=== PATIENT | female | born 1970 | race Caucasian/White ===

== ENCOUNTER 2019-12-21 11:01 | Outpatient (CLI) | payer BC, SELFPAY ==
--- NOTE | 2019-12-21 | ECG_ITS ---
Measurements Intervals [place] Rate: 95 P: 76 [place]: 147 QRS: 0 QRSD: 88 T: 72 QT: 355 QTc: 447 Interpretive Statements SINUS RHYTHM INCOMPLETE RIGHT BUNDLE BRANCH BLOCK DELAYED PRECORDIAL R/S TRANSITION BORDERLINE ECG Electronically Signed On 12-21-2019 14:47:20 CDT by Michael Pack D.O.
[2019-12-21 11:58] LABS: Blood Urea Nitrogen 13 mg/dL (7-17); Calcium 8.9 mg/dL (8.4-10.2); Carbon Dioxide 29 mmol/L (22-30); Chloride 104 mmol/L (98-107); Estimated Glomerular Filt Rate > 60; Glucose 124 mg/dL (65-105); Potassium 4.5 mmol/L (3.4-5.0); Sodium 139 mmol/L (137-145)
== END 2019-12-21 11:02 | disposition home or self-care (01) ==
PROVIDERS: PCP Orthopaedic Surgery; Visit Provider Orthopaedic Surgery
DX: M65.311 Trigger thumb, right thumb (principal)
CPT/HCPCS: 36415; 80048; 93005

== ENCOUNTER 2020-02-02 08:11 | Emergency (ER) | payer BC, SELFPAY ==
--- NOTE | ~2020-02-02 | XR_ITS ---
EXAMINATION: XR wrist RT min 3V DATE: 02/02/2020 08:35 INDICATION: Right wrist pain. Injury. TECHNIQUE: 4 views of right wrist were obtained. COMPARISON: None. FINDINGS: There is a comminuted fracture of distal radius with involvement of the distal articular chanel rface and distal radioulnar joint. The main distal fracture fragment demonstrates impaction and 2 mm posterior displacement. There is 9 degrees palmar tilt of the distal articular surface. Ulnar styloid is intact. Joint spaces are normal. IMPRESSION: 1. Comminuted fracture of distal radius. Reviewed, dictated and finalized at location A.
[2020-02-02 08:21] VITALS: BP 141/92; PULSE 115; RESP 19; TEMP 36.5; O2SAT 99
--- NOTE | 2020-02-02 08:27 | ED.UPPEXIN ---
HPI - Extremity Injury (Upper) General Chief Complaint: Extremity Injury, Upper Stated Complaint: Right Wrist Injury Time Seen by Provider: 02/02/20 08:13 Source: patient Mode of arrival: ambulatory Limitations: no limitations History of Present Illness HPI narrative: This patient is a 49 year old female who presents for evaluation of right wrist pain s/p injury. LAst night around 930 pm patient reports she hit a wall with her right wrist out of anger. She reports she has had severe pain since last night but she did not want to come to ER at that time. She has been taking ibuprofen with out relief , and she has been applying ice packs. MD complaint: injury to: right and wrist Related Data Home Medications Medication Instructions Recorded Confirmed cinnamon bark 500 mg capsule 500 mg PO DAILY 08/02/19 02/02/20 colesevelam 625 mg tablet 3,750 mg PO DAILY 08/02/19 12/05/19 duloxetine 60 mg capsule,delayed 60 mg PO DAILY 08/02/19 02/02/20 release milk thistle 150 mg capsule 150 mg PO DAILY cap 08/02/19 02/02/20 pantoprazole 40 mg tablet,delayed 40 mg PO QAM 08/02/19 02/02/20 release solifenacin 5 mg tablet 5 mg PO DAILY 08/02/19 02/02/20 thyroid (pork) 180 mg tablet 180 mg PO DAILY 08/02/19 02/02/20 zinc acetate 50 mg (zinc) capsule 50 mg PO DAILY 08/02/19 02/02/20 pen needle, diabetic 31 gauge x #1,200 each 08/12/19 12/05/19/16 vitamins A and D3 in cod liver oil 1 cap PO DAILY cap 08/12/19 12/05/19 1,250 unit-135 unit capsule bupropion HCl 150 mg 24 hr tablet, 300 mg PO .COMPLEX tablet 12/05/19 02/02/20 extended release insulin glargine 100 unit/mL (3 60 unit SUB-Q QPM ml 12/05/19 02/02/20 mL) subcutaneous pen Allergies Allergy/AdvReac Type Severity Reaction Status Date / Time Quinolones Allergy Mild RASH Verified 02/02/20 08:30 amoxicillin Allergy Unknown Diarrhea Verified 02/02/20 08:30 ciprofloxacin Allergy Unknown Unknown Verified 02/02/20 08:30 clavulanic acid Allergy Unknown Diarrhea Verified 02/02/20 08:30 gatifloxacin Allergy Unknown Diarrhea Verified 02/02/20 08:30 Review of Systems Review of Systems: All systems reviewed & are unremarkable except as noted in HPI and below PMFSH Past Medical History Medical History Arthritis Back pain Cholecystectomy planned Depression Liver disease Ovarian cyst Thyroid disease Ulcer Surgical History Surgical History H/O spinal fusion H/O: hysterectomy Hx of tonsillectomy Social History Social History Smoking status: Never smoker Alcohol intake: never Gender identity (if verbalized by the patient): Female Exam Const: General: alert Orientation/consciousness: patient oriented x3 Other: patient is crying Eyes: EOM: EOMs intact bilaterally Resp: Effort & Inspection: normal respiratory effort Cardio: Other: strong bilateral radial pulse Skin: Other: scaly , flaky circular patches to legs, Neuro: General: patient oriented x3 and moves all extremities Extrem: Other: right wrist swelling with tenderness, pain with touching and movement, able to extend fingers and move at elbow with out difficulty. Psych: Mental Status: mental status grossly normal Affect: normal affect Course Consultations Consultation #1: I spoke with Dr. Acharya over the phone about fracture. He states patient can be placed in splint and follow up Tuesday afternoon. Date: 02/02/20 Time: 09:32 Vital Signs Vital signs: Vital Signs Temperature 97.7 F 02/02/20 08:21 Pulse Rate 115 H 02/02/20 08:21 Respiratory Rate 19 02/02/20 08:21 Blood Pressure 141/92 H 02/02/20 08:21 Pulse Oximetry 99 02/02/20 08:21 Temperature 97.7 F 02/02/20 08:21 Pulse Rate 97 02/02/20 09:00 Respiratory Rate 18 02/02/20 09:00 Blood Pressure 135/87 02/02/20 09:00 Pulse Oximetr
[2020-02-02] MEDS: oxyCODONE/ACETAMINOPHEN 5-325 MG TABLET 1 TABLET PO (08:37)
[2020-02-02] MEDS: ONDANSETRON HCL ODT 4 MG TABLET PO (08:37)
[2020-02-02 09:00] VITALS: BP 135/87; PULSE 97; RESP 18; O2SAT 99
== END 2020-02-02 10:57 | disposition home or self-care (01) ==
PROVIDERS: Emergency Provider General Practice; PCP Nurse Practitioner Family
DX: S52.591A Other fractures of lower end of right radius, initial encounter for closed fracture (principal); M19.90 Unspecified osteoarthritis, unspecified site; K76.9 Liver disease, unspecified; E07.9 Disorder of thyroid, unspecified; F32.9 Major depressive disorder, single episode, unspecified; Z98.1 Arthrodesis status; W22.09XA Striking against other stationary object, initial encounter
CPT/HCPCS: 29125; 73110; 99284; A9270

== ENCOUNTER 2020-02-03 20:22 | Emergency (ER) | payer BC, SELFPAY ==
[2020-02-03 20:24] VITALS: BP 146/66; PULSE 100; RESP 16; TEMP 36.6; O2SAT 100
--- NOTE | 2020-02-03 21:06 | ED.UPPEXIN ---
HPI - Extremity Injury (Upper) General Chief Complaint: Extremity Injury, Upper Stated Complaint: pain to right arm Time Seen by Provider: 02/03/20 20:29 Source: patient Mode of arrival: ambulatory Limitations: no limitations History of Present Illness HPI narrative: This is a 49 year old female that presents to the ER for increasing pain in her forearm. Reports she was seen here yesterday for this. Sustained a wrist fracture 2 days ago. Reports she was concerned she may have compartment syndrome as she was reading up on it. Reports some tingling in her fingers and increasing pressure in the area of the fracture. Denies numbness. Related Data Home Medications Medication Instructions Recorded Confirmed cinnamon bark 500 mg capsule 500 mg PO DAILY 08/02/19 02/02/20 colesevelam 625 mg tablet 3,750 mg PO DAILY 08/02/19 12/05/19 duloxetine 60 mg capsule,delayed 60 mg PO DAILY 08/02/19 02/02/20 release milk thistle 150 mg capsule 150 mg PO DAILY cap 08/02/19 02/02/20 pantoprazole 40 mg tablet,delayed 40 mg PO QAM 08/02/19 02/02/20 release solifenacin 5 mg tablet 5 mg PO DAILY 08/02/19 02/02/20 thyroid (pork) 180 mg tablet 180 mg PO DAILY 08/02/19 02/02/20 zinc acetate 50 mg (zinc) capsule 50 mg PO DAILY 08/02/19 02/02/20 pen needle, diabetic 31 gauge x #1,200 each 08/12/19 12/05/19/16 vitamins A and D3 in cod liver oil 1 cap PO DAILY cap 08/12/19 12/05/19 1,250 unit-135 unit capsule bupropion HCl 150 mg 24 hr tablet, 300 mg PO .COMPLEX tablet 12/05/19 02/02/20 extended release insulin glargine 100 unit/mL (3 60 unit SUB-Q QPM ml 12/05/19 02/02/20 mL) subcutaneous pen Allergies Allergy/AdvReac Type Severity Reaction Status Date / Time Quinolones Allergy Mild RASH Verified 02/02/20 08:30 amoxicillin Allergy Unknown Diarrhea Verified 02/02/20 08:30 ciprofloxacin Allergy Unknown Unknown Verified 02/02/20 08:30 clavulanic acid Allergy Unknown Diarrhea Verified 02/02/20 08:30 gatifloxacin Allergy Unknown Diarrhea Verified 02/02/20 08:30 Review of Systems Review of Systems: Narrative: CONSTITUTIONAL: Denies fever SKIN: Denies rash MUSCULOSKELETAL: Reports joint pain, and myalgia. NEUROLOGIC: Denies numbness All systems reviewed & are unremarkable except as noted in HPI and below PMFSH Social History Social History Smoking status: Never smoker Alcohol intake: never Gender identity (if verbalized by the patient): Female Exam Narrative: Exam Narrative: GENERAL: Well-appearing, well-nourished, and in no acute distress. HEAD: Normocephalic, atraumatic. EYES: EOMI. EXTREMITIES: Splint removed on the right forearm. No erythema of the forearm. Compartments are soft. Normal radial pulses. Normal capillary refill SKIN: Warm, dry, no rash. NEURO: No focal deficits. Alert and oriented x3. PSYCH: Normal mood and affect Course Vital Signs Vital signs: Vital Signs Temperature 97.9 F 02/03/20 20:24 Pulse Rate 100 02/03/20 20:24 Respiratory Rate 16 02/03/20 20:24 Blood Pressure 146/66 H 02/03/20 20:24 Pulse Oximetry 100 02/03/20 20:24 Temperature 97.9 F 02/03/20 20:24 Pulse Rate 100 02/03/20 20:24 Respiratory Rate 16 02/03/20 20:24 Blood Pressure 146/66 H 02/03/20 20:24 Pulse Oximetry 100 02/03/20 20:24 MDM - Extremity Injury (Upper) MDM Narrative Medical decision making narrative: Patient presents the emergency department for increasing pain in her wrist. Was seen here yesterday and diagnosed with distal radius fracture. Patient returned today as she was worried she had compartment syndrome. I do not believe pain is out of proportion. Her compartments are soft. She has a good radial pulse. Normal capillary refill. No erythema or concerning edema of the forearm. Splint was replaced. Patient was instructed to follow-up with orthopedics as planned. She was given warnings to return to the ER Critical Care Jean Marie
[2020-02-03 21:47] VITALS: BP 135/77; PULSE 95; RESP 18; O2SAT 98
== END 2020-02-03 21:49 | disposition home or self-care (01) ==
PROVIDERS: Emergency Provider Emergency Medicine; PCP Nurse Practitioner Family
DX: S52.501D Unspecified fracture of the lower end of right radius, subsequent encounter for closed fracture with routine healing (principal); Z79.4 Long term (current) use of insulin; X58.XXXD Exposure to other specified factors, subsequent encounter
CPT/HCPCS: 99282

== ENCOUNTER 2020-07-07 08:30 | Outpatient (CLI) | payer BC, SELFPAY ==
--- NOTE | ~2020-07-07 | XR_ITS ---
EXAMINATION: XR barium swallow modified EXAM DATE: 07/07/2020 09:07 INDICATION: Dysphagia. TECHNIQUE: Modified barium esophagram was performed by myself to administered fluoroscopy, in conjun ction with speech pathologist who administered barium in varying consistencies as per speech patholog ist documentation. This was recorded on tape. The DAP for this procedure was 1.4 Gycm2. FINDINGS: Cervical fusion hardware C4-6. Oral stage: Adequate function. Pharyngeal phase: Adequate function. Laryngeal penetration: None. Aspiration: None. Laryngeal sensitivity: Present. IMPRESSION: Normal modified esophagram exam. Please refer to speech pathologist findings and specifi c feeding recommendations. Reviewed, dictated and finalized at location A. MBLER GOLF [employer] HEAD IMPRESSION: Normal modified esophagram exam. Please refer to speech pathologis t findings and specific feeding recommendations.
--- NOTE | 2020-07-07 15:13 | STOPEVAL ---
Modified Barium Swallow Evaluation: Thank you for referring Rachana Estrella to [facility] Attending Provider: Silvestre Stallworth, VICE PRESIDENT RESEARCH *ST Outpatient Evaluation Start: 07/07/20 09:54 Freq: Status: Active Protocol: Document 07/07/20 08:45 BECHERERT (Rec: 07/07/20 10:00 BECHERERT [email or web address]) Therapy Assessment Status Assessment Status Assessment Status Evaluation Outpatient Past Medical History Past Medical History No Past Medical/Surgical History Patient/Family Denies Significant Past Medical/ Surgical History Prior Level of Function Prior Swallow Level Prior Intake Method Oral Prior Diet Regular (Level 7 Diet) Prior Liquid Consistency Thin (Level 0 Diet) Pain Assessment Timing of Pain Assessment Timing of Pain Assessment Assessment Self Report Self Report Pain Level 0 Pain Score Pain Score 0: Self Report Modified Barium Swallow Evaluation Recent Swallowing History Reports Dysphagia Yes: small pieces get stuck Onset of Dysphagia several years ago (before cervical fusion) Other Factors Impacting Dysphagia Head/Neck Surgery History of Pneumonia No Reported Difficult Consistencies Solids Intake Method Prior to Swallow Oral Evaluation Diet Prior to Swallow Evaluation Regular, Level 7 Liquid Consistency Prior to Swallow Thin (0) Evaluation Consistency Thin Uncontrolled 2 Method of Presentation Straw Oral Preparatory Symptoms None Oral Phase Symptoms None Pharyngeal Phase Symptoms None Severity of Vallecular Residue None - 0% No Residue Severity of Pyriform Sinus Residue None - 0% No Residue 8 Point Laryngeal Penetration-Aspiration Material Does Not Enter Airway Scale Cervical/Esophageal Symptoms None Thin Uncontrolled 1 Method of Presentation Cup Oral Preparatory Symptoms None Oral Phase Symptoms None Pharyngeal Phase Symptoms None Severity of Vallecular Residue None - 0% No Residue Severity of Pyriform Sinus Residue None - 0% No Residue 8 Point Laryngeal Penetration-Aspiration Material Does Not Enter Airway Scale Cervical/Esophageal Symptoms None Solid Consistency Other Amount cracker and grapes the pt brought to the test; she c/o that the skin of the grapes gets caught in her throat. Method of Presentation Spoon Oral Preparatory Symptoms None Oral Phase Symptoms None Pharyngeal Phase Symptoms None Severity of Vallecular Residue None - 0% No Residue Severity of Pyriform Sinus Residue None - 0%
== END 2020-07-07 08:31 | disposition home or self-care (01) ==
PROVIDERS: PCP Nurse Practitioner Family; Visit Provider Nurse Practitioner Family
DX: R13.10 Dysphagia, unspecified (principal)
CPT/HCPCS: 92611

== ENCOUNTER 2020-09-16 15:27 | Outpatient (CLI) | payer BC, SELFPAY ==
[2020-09-16 16:02] LABS: Hematocrit 44.3 % (37.0-47.0); Mean Corpuscular HGB Conc 31.6 g/dl (32-36); Mean Corpuscular Hemoglobin 25.7 pg (26-34); Mean Corpuscular Volume 81.3 fl (80-100); Mean Platelet Volume 9.8 fl (7.4-10.4); Platelet Count Result 266 k/mm3 (150-375); Red Blood Count 5.45 M/mm3 (4.2-5.4); Red Cell Distribution Width 19.6 % (11.5-14.5); White Blood Count 9.4 K/mm3 (4.5-10.0)
[2020-09-16 16:26] LABS: Transferrin 230 mg/dL (206-381)
[2020-09-16 16:48] LABS: Iron 48 ug/dL (37-170)
== END 2020-09-16 15:28 | disposition home or self-care (01) ==
PROVIDERS: PCP Nurse Practitioner Family
DX: E61.1 Iron deficiency (principal)
CPT/HCPCS: 36415; 82728; 83540; 84466; 85027

== ENCOUNTER 2020-10-07 15:45 | Outpatient (CLI) | payer BC, SELFPAY ==
[2020-10-07 16:43] LABS: Alanine Aminotransferase 22 U/L (4-35); Albumin Level 4.1 g/dL (3.5-5.1); Alkaline Phosphatase 101 U/L (38-126); Anion Gap 2 mmol/L (8-16); Aspartate Amino Transferase 25 U/L (14-36); Bilirubin,Total 0.3 mg/dL (0.2-1.3); Blood Urea Nitrogen 10 mg/dL (7-17); Calcium 8.9 mg/dL (8.4-10.2); Carbon Dioxide 35 mmol/L (22-30); Chloride 106 mmol/L (98-107); Estimated Glomerular Filt Rate > 60; Glucose 106 mg/dL (65-105); Sodium 143 mmol/L (137-145)
== END 2020-10-07 15:46 | disposition home or self-care (01) ==
LOC: ANHLAB 15:51
PROVIDERS: PCP Nurse Practitioner Family
DX: K75.81 Nonalcoholic steatohepatitis (NASH) (principal)
CPT/HCPCS: 36415; 80053

== ENCOUNTER 2020-11-07 12:23 | Outpatient (CLI) | payer BC, SELFPAY ==
--- NOTE | ~2020-11-07 | XR_ITS ---
XR shoulder RT min 2V DATE: 11/07/2020 12:47 INDICATION: Right shoulder pain for 2 months TECHNIQUE: 4 views COMPARISON: None FINDINGS: Status post anterior cervical spine surgical fusion. Osteopenia. Normal alignment at the acromioclavicular and glenohumeral joints. No fracture or dislocation, perios teal reaction or bone destruction or abnormal soft tissue calcification of the right shoulder. Mild dextroscoliosis of the thoracic spine. IMPRESSION: Osteopenia Status post anterior cervical spine surgical fusion Reviewed, dictated and finalized at location B.
== END 2020-11-07 12:24 | disposition home or self-care (01) ==
LOC: ANHIMG 12:25
PROVIDERS: PCP Nurse Practitioner Family; Visit Provider Nurse Practitioner Family
DX: M85.811 Other specified disorders of bone density and structure, right shoulder (principal); Z98.1 Arthrodesis status
CPT/HCPCS: 73030

== ENCOUNTER 2021-01-15 10:37 | Outpatient (CLI) | payer BC, SELFPAY ==
--- NOTE | ~2021-01-15 | XR_ITS ---
EXAMINATION: XR lg joint inject/asp w image DATE: 01/15/2021 11:52 INDICATION: Right frozen shoulder. TECHNIQUE: A time-out was performed to verify the patient's name, date of , and procedure to b e performed. The procedure including the risks, benefits, and alternatives was discussed with the pat ient. Risks discussed included bleeding and infection. The patient understood the risks and agreed to proceed. The skin overlying the rotator cuff interval of the right glenohumeral joint was prepped a nd draped in usual sterile fashion. Anesthetic was administered with 1% lidocaine subcutaneously. A 22 G needle was advanced under fluoroscopic guidance into the joint. Injection of 1 mL of Omnipaque 240 confirmed intra-articular position of the needle. Subsequently, injectate consisting of 5 mL of a 4:1 mixture of 1% lidocaine: 80 mg/mL Depo-Medrol for a total dose of 80 mg Depo-Medrol was instil led. Washout of contrast was seen confirming intra-articular administration. The needle was removed a nd the entry site was cleaned and dressed. There were no immediate complications. Fluoroscopy exposu re time was 0.2 minutes. The total number of images was 2. FINDINGS: Real-time fluoroscopy demonstrates the needle in the right glenohumeral joint. Patient's pa in prior to procedure:09/27. Patient's pain following the procedure: 07/30. IMPRESSION: 1. Right glenohumeral joint injection of local anesthetic and steroid with decrease in the patient's presenting pain. Reviewed, dictated and finalized at location A. IMPRESSION: 1. Right glenohumeral joint injection of local anesthetic and steroid with decr ease in the patient's presenting pain.
== END 2021-01-15 10:38 | disposition home or self-care (01) ==
LOC: ANHIMG 10:39
PROVIDERS: PCP Nurse Practitioner Family; Visit Provider Physician Assistant Surgical
DX: M25.511 Pain in right shoulder (principal)
CPT/HCPCS: 20610; 77002; J1040; Q9966

== ENCOUNTER 2021-01-15 10:50 | Outpatient (CLI) | payer BC, SELFPAY ==
[2021-01-15 12:08] LABS: Basophils Percent Auto 0.4 % (0.2-1.2); Eosinophils Absolute Auto 0.1 K/mm3 (0-0.3); Eosinophils Percent Auto 1.3 % (0-4.4); Hematocrit 47.1 % (37.0-47.0); Hemoglobin 15.2 g/dL (12.0-15.0); Immature Granulocyte Absolute 0.02 K/mm3 (0.00-0.031); Immature Granulocyte Percent A 0.2 % (0-0.5); Lymphocytes Absolute Auto 2.47 K/mm3 (0.9-3.2); Lymphocytes Percent Auto 30.1 % (18.3-44.2); Mean Corpuscular HGB Conc 32.3 g/dl (32-36); Mean Corpuscular Hemoglobin 27.9 pg (26-34); Mean Corpuscular Volume 86.6 fl (80-100); Mean Platelet Volume 9.5 fl (7.4-10.4); Monocytes Absolute Auto 0.7 K/mm3 (0.1-0.6); Monocytes Percent Auto 8.9 % (2.6-8.5); Neutrophils Absolute Auto 4.8 K/mm3 (1.3-6.7); Neutrophils Percent Auto 59.1 % (45.5-73.1); Platelet Count Result 305 k/mm3 (150-375); Red Blood Count 5.44 M/mm3 (4.2-5.4); Red Cell Distribution Width 12.6 % (11.5-14.5); White Blood Count 8.2 K/mm3 (4.5-10.0)
[2021-01-15 12:18] LABS: Alanine Aminotransferase 20 U/L (4-35); Albumin Level 4.3 g/dL (3.5-5.1); Alkaline Phosphatase 108 U/L (38-126); Anion Gap 11 mmol/L (8-16); Aspartate Amino Transferase 22 U/L (14-36); Bilirubin,Total 0.5 mg/dL (0.2-1.3); Blood Urea Nitrogen 9 mg/dL (7-17); Calcium 9.7 mg/dL (8.4-10.2); Carbon Dioxide 27 mmol/L (22-30); Chloride 105 mmol/L (98-107); Estimated Glomerular Filt Rate > 60; Glucose 86 mg/dL (65-110); Potassium 4.2 mmol/L (3.4-5.0); Sodium 143 mmol/L (137-145)
[2021-01-15 12:43] LABS: Iron 46 ug/dL (37-170)
[2021-01-15 12:50] LABS: Total Triiodothyronine (T3) 1.47 NG/ML (0.97-1.69)
[2021-01-15 12:53] LABS: Percent Iron Saturation 15 % (20-50)
[2021-01-15 13:04] LABS: Free T4 Free Thyroxine 0.61 ng/mL (0.78-2.19)
[2021-01-15 16:52] LABS: Creatinine Urine 204.2 mg/dL
[2021-01-15 16:57] LABS: Microalbumin Urine Random 16.4 mg/L (0-16.7)
[2021-01-21 06:18] LABS: Fructosamine 195 umol/L (205-285)
== END 2021-01-15 10:51 | disposition home or self-care (01) ==
PROVIDERS: PCP Nurse Practitioner Family; Visit Provider Internal Medicine Endocrinology, Diabetes & Metabolism
DX: D64.9 Anemia, unspecified (principal)
CPT/HCPCS: 36415; 80053; 82043; 82728; 82985; 83540; 83550; 84439; 84443; 84480; 85025

== ENCOUNTER 2021-02-18 13:46 | Outpatient (CLI) | payer BC, SELFPAY ==
--- NOTE | ~2021-02-18 | XR_ITS ---
EXAMINATION: XR lumbar spine 2-3V DATE: 02/18/2021 14:20 INDICATION: Pain in lower limb, bilateral. TECHNIQUE: 3 views of lumbar spine were obtained. COMPARISON: None. FINDINGS: There is 6 degrees levocurvature of lumbar spine. Vertebral body heights are normal. There is mildly decreased disc height at L2-L3. There are endplate osteophytes at most levels. There is sev ere facet joint osteoarthritis at L5-S1. Surgical clips in the right upper quadrant are likely from c holecystectomy. IMPRESSION: 1. Mild lumbar spondylosis. Reviewed, dictated and finalized at location A. IMPRESSION: 1. Mild lumbar spondylosis.
== END 2021-02-18 13:47 | disposition home or self-care (01) ==
PROVIDERS: PCP Nurse Practitioner Family; Visit Provider Nurse Practitioner Family
DX: M79.604 Pain in right leg (principal); M79.605 Pain in left leg; M47.816 Spondylosis without myelopathy or radiculopathy, lumbar region
CPT/HCPCS: 72100

== ENCOUNTER 2021-05-05 14:09 | Outpatient (CLI) | payer BC, SELFPAY ==
[2021-05-05 14:49] LABS: Basophils Percent Auto 0.2 % (0.2-1.2); Eosinophils Absolute Auto 0.1 K/mm3 (0-0.3); Hemoglobin 14.5 g/dL (12.0-15.0); Immature Granulocyte Absolute 0.02 K/mm3 (0.00-0.031); Immature Granulocyte Percent A 0.2 % (0-0.5); Mean Corpuscular Hemoglobin 28.8 pg (26-34); Mean Corpuscular Volume 87.5 fl (80-100); Mean Platelet Volume 9.5 fl (7.4-10.4); Monocytes Absolute Auto 0.6 K/mm3 (0.1-0.6); Monocytes Percent Auto 6.9 % (2.6-8.5); Neutrophils Absolute Auto 5.3 K/mm3 (1.3-6.7); Neutrophils Percent Auto 60.7 % (45.5-73.1); Platelet Count Result 287 k/mm3 (150-375); Red Blood Count 5.03 M/mm3 (4.2-5.4); Red Cell Distribution Width 12.6 % (11.5-14.5); White Blood Count 8.7 K/mm3 (4.5-10.0)
[2021-05-05 15:04] LABS: Cholesterol 182 mg/dL (0-200); HDL Direct 50 mg/dL; Triglycerides 113 mg/dL (<150)
[2021-05-05 15:05] LABS: Alanine Aminotransferase 22 U/L (4-35); Albumin Level 4.6 g/dL (3.5-5.1); Alkaline Phosphatase 105 U/L (38-126); Anion Gap 7 mmol/L (8-16); Aspartate Amino Transferase 25 U/L (14-36); Bilirubin,Total 0.5 mg/dL (0.2-1.3); Blood Urea Nitrogen 11 mg/dL (7-17); Calcium 9.4 mg/dL (8.4-10.2); Carbon Dioxide 31 mmol/L (22-30); Chloride 100 mmol/L (98-107); Estimated Glomerular Filt Rate > 60; Glucose 92 mg/dL (65-110); Potassium 3.7 mmol/L (3.4-5.0); Sodium 138 mmol/L (137-145)
[2021-05-05 15:15] LABS: LDL Cholesterol Direct 106 mg/dL
[2021-05-05 15:30] LABS: Free T4 Free Thyroxine 0.82 ng/mL (0.78-2.19)
[2021-05-05 15:33] LABS: Hepatitis B Surface Antigen Negative (Negative)
[2021-05-05 15:34] LABS: Thyroid Stimulating Hormone 0.834 uIU/mL (0.465-4.680); Total Triiodothyronine (T3) 2.17 NG/ML (0.97-1.69)
[2021-05-05 15:51] LABS: Hepatitis B Surface Anti Res Negative
[2021-05-08 05:12] LABS: Hepatitis B Core Ab Total Nonreactive (Nonreactive)
[2021-05-13 11:45] LABS: Quantiferon TB Plus, 1T Positive
[2021-05-13 11:46] LABS: NIL 0.02
[2021-05-13 11:49] LABS: TB1-NIL 0.47
[2021-05-13 11:50] LABS: TB2-NIL 0.41
== END 2021-05-05 14:10 | disposition home or self-care (01) ==
PROVIDERS: PCP Nurse Practitioner Family; Visit Provider Nurse Practitioner Family
DX: E03.9 Hypothyroidism, unspecified (principal); E11.65 Type 2 diabetes mellitus with hyperglycemia; E78.5 Hyperlipidemia, unspecified; Z79.4 Long term (current) use of insulin; K50.019 Crohn's disease of small intestine with unspecified complications
CPT/HCPCS: 36415; 80053; 80061; 82306; 82607; 84439; 84443; 84480; 85025; 86480; 86704; 86706; 87340

== ENCOUNTER 2021-05-18 15:34 | Outpatient (CLI) | payer BC, SELFPAY ==
--- NOTE | ~2021-05-18 | XR_ITS ---
EXAMINATION: XR chest 2V 05/18/2021 15:53 INDICATION: Positive TB test PROCEDURE: 2 view chest COMPARISON: 03/05/2019 FINDINGS: The lungs are clear. The cardiomediastinal silhouette is within normal limits. There are no pleural effusions. There is no pneumothorax suspected. IMPRESSION: 1: NO ACUTE CARDIOPULMONARY DISEASE. Reviewed, dictated and finalized at location B. H SETTER
== END 2021-05-18 15:35 | disposition home or self-care (01) ==
LOC: ANHIMG 15:39
PROVIDERS: PCP Nurse Practitioner Family
DX: R76.11 Nonspecific reaction to tuberculin skin test without active tuberculosis (principal)
CPT/HCPCS: 71046

== ENCOUNTER 2021-07-14 15:31 | Outpatient (CLI) | payer BC, SELFPAY ==
--- NOTE | ~2021-07-14 | XR_ITS ---
XR sternum min 2V DATE: 07/14/2021 16:06 INDICATION: Chest pain, sternal pain, clavicle pain TECHNIQUE: Lateral and oblique views COMPARISON: None FINDINGS: There is a smooth indentation of the anterior cortex of the proximal body of the sternum, n ot readily evident on prior lateral chest radiographs of 03/27/2012 or 05/18/2021. This may be an inte rval fracture. Consider CT correlation. IMPRESSION: Possible depressed but otherwise nondisplaced fracture of the proximal anterior body of t he sternum, uncertain age Reviewed, dictated and finalized at location A. OYMENT COUNSELOR IMPRESSION: Possible depressed but otherwise nondisplaced fracture of the proxi mal anterior body of the sternum, uncertain age
--- NOTE | ~2021-07-14 | XR_ITS ---
XR clavicle BI DATE: 07/14/2021 16:06 INDICATION: Chest pain, clavicle pain. TECHNIQUE: AP and angled AP views of both clavicles COMPARISON: 11/07/2020 right shoulder FINDINGS: Status post anterior cervical spine surgical fusion. Osteopenia. No fracture or dislocation, periosteal reaction or bone destruction of either clavicle is detected. IMPRESSION: Osteopenia Status post anterior cervical spine fusion surgical fusion from C4-C7 No clavicle fracture or dislocation, periosteal reaction or bone destruction Reviewed, dictated and finalized at location A. ATIONAL ADMINISTRATOR
== END 2021-07-14 15:32 | disposition home or self-care (01) ==
PROVIDERS: PCP Nurse Practitioner Family; Visit Provider Nurse Practitioner Family
DX: R07.9 Chest pain, unspecified (principal); M85.88 Other specified disorders of bone density and structure, other site; Z98.1 Arthrodesis status
CPT/HCPCS: 71120; 73000

== ENCOUNTER 2021-08-16 15:44 | Emergency (ER) | payer BC, SELFPAY ==
[2021-08-16 15:48] VITALS: BP 192/117; PULSE 114; RESP 22; TEMP 36.6; O2SAT 97
--- NOTE | 2021-08-16 16:22 | ED.GENADULT ---
HPI - General Adult General Chief complaint: Psychiatric Symptoms Stated complaint: SI Time Seen by Provider: 08/16/21 15:54 Source: patient and RN notes reviewed Limitations: no limitations History of Present Illness HPI narrative: 51-year-old female presents the emergency department for evaluation of worsening suicidal ideation. Patient states she did have suicidal thoughts approximately 2 weeks ago when she put a handful of pills in her mouth but ultimately spit them out before swallowing. Patient states due to increased home stresses that she has become more depressed and suicidal. Patient presents emerged department complaining of suicidal ideation. Patient denies taking any pills today to hurt herself. Patient denies any alcohol consumption. Patient did tell her to walk guns and to change the safe combination because she did not feel safe. Related Data Home Medications Medication Instructions Recorded Confirmed cinnamon bark 500 mg capsule 500 mg PO DAILY 08/02/19 01/01/21 colesevelam 625 mg tablet 3,750 mg PO DAILY 08/02/19 01/01/21 duloxetine 60 mg capsule,delayed 60 mg PO DAILY 08/02/19 01/01/21 release milk thistle 150 mg capsule 150 mg PO DAILY cap 08/02/19 01/01/21 pantoprazole 40 mg tablet,delayed 40 mg PO QAM 08/02/19 01/01/21 release thyroid (pork) 180 mg tablet 180 mg PO DAILY 08/02/19 01/01/21 zinc acetate 50 mg (zinc) capsule 50 mg PO DAILY 08/02/19 01/01/21 pen needle, diabetic 31 gauge x #1,200 each 08/12/19 01/01/21/16 bupropion HCl 150 mg 24 hr tablet, 300 mg PO .COMPLEX tablet 12/05/19 01/01/21 extended release cholecalciferol (vitamin D3) 1,250 1,250 mcg PO WEEKLY cap 09/25/20 01/01/21 mcg (50,000 unit) capsule mirabegron 25 mg tablet,extended 25 mg PO DAILY 09/25/20 01/01/21 release 24 hr Allergies Allergy/AdvReac Type Severity Reaction Status Date / Time Quinolones Allergy Mild RASH Verified 08/16/21 16:12 ciprofloxacin Allergy Unknown Unknown Verified 08/16/21 16:12 amoxicillin AdvReac Unknown Diarrhea Verified 08/16/21 16:37 clavulanic acid AdvReac Unknown Diarrhea Verified 08/16/21 16:37 gatifloxacin AdvReac Unknown Diarrhea Verified 08/16/21 16:37 Review of Systems Review of Systems: CONSTITUTIONAL: Denies fever, chills, or sweats. EYES: Denies visual changes, redness, or discharge. ENT: Denies rhinorrhea, congestion, sore throat, or otalgia. CARDIOVASCULAR: Denies chest pain, palpitations, or edema. RESPIRATORY: Denies cough or dyspnea. GASTROINTESTINAL: Denies abdominal pain, nausea, vomiting, or diarrhea. GENITOURINARY: Denies dysuria or hematuria. SKIN: Denies rash or itching. MUSCULOSKELETAL: Denies back pain, joint pain, or myalgia. NEUROLOGIC: Denies headache, numbness, or weakness. PSYCHIATRIC: Worsening stress, depression and suicidal ideation All systems reviewed & are unremarkable except as noted in HPI and below PMFSH Past Medical History Medical History (Updated 08/16/21 @ 19:54 by Derik Mays MD) Arthritis Back pain Cholecystectomy planned Depression Liver disease Ovarian cyst Thyroid disease Ulcer Surgical History Surgical History H/O spinal fusion H/O: hysterectomy Hx of tonsillectomy Family History Family History Other Family history of mental disorder Family history of thyroid disease Social History Social History Smoking status: Never smoker Alcohol intake: never Substance use type: unknown Gender identity (if verbalized by the patient): Female Exam Narrative: APPEARANCE: Well appearing, no pain, no distress, well-nourished. HEAD: normocephalic, atraumatic. EYES: PERRLA/EOMI, conjunctivae clear. RESPIRATORY: Airway patent, respirations nonlabored. Clear to auscultation bilaterally, no rales, rhonchi, wheezing. CARDIOVASCULAR: Regul
[2021-08-16 16:36] LABS: Basophils Percent Auto 0.4 % (0.2-1.2); Eosinophils Absolute Auto 0.1 K/mm3 (0-0.3); Eosinophils Percent Auto 0.7 % (0-4.4); Hematocrit 46.6 % (37.0-47.0); Hemoglobin 15.6 g/dL (12.0-15.0); Immature Granulocyte Absolute 0.04 K/mm3 (0.00-0.031); Immature Granulocyte Percent A 0.4 % (0-0.5); Lymphocytes Absolute Auto 2.46 K/mm3 (0.9-3.2); Lymphocytes Percent Auto 22.6 % (18.3-44.2); Mean Corpuscular HGB Conc 33.5 g/dl (32-36); Mean Corpuscular Hemoglobin 28.8 pg (26-34); Mean Corpuscular Volume 86.1 fl (80-100); Mean Platelet Volume 9.6 fl (7.4-10.4); Monocytes Absolute Auto 0.9 K/mm3 (0.1-0.6); Monocytes Percent Auto 7.8 % (2.6-8.5); Neutrophils Absolute Auto 7.4 K/mm3 (1.3-6.7); Neutrophils Percent Auto 68.1 % (45.5-73.1); Platelet Count Result 306 k/mm3 (150-375); Red Blood Count 5.41 M/mm3 (4.2-5.4); Red Cell Distribution Width 12.6 % (11.5-14.5); White Blood Count 10.9 K/mm3 (4.5-10.0)
[2021-08-16] MEDS: ONDANSETRON HCL ODT 4 MG TABLET PO (16:43)
[2021-08-16] MEDS: IBUPROFEN 600 MG TABLET PO (16:43)
[2021-08-16 16:44] LABS: Acetaminophen < 10 ug/mL (10-30); Alanine Aminotransferase 25 U/L (4-35); Albumin Level 4.4 g/dL (3.5-5.1); Alkaline Phosphatase 122 U/L (38-126); Anion Gap 8 mmol/L (8-16); Aspartate Amino Transferase 33 U/L (14-36); Bilirubin,Total 0.7 mg/dL (0.2-1.3); Blood Urea Nitrogen 10 mg/dL (7-17); Calcium 9.3 mg/dL (8.4-10.2); Carbon Dioxide 24 mmol/L (22-30); Chloride 106 mmol/L (98-107); Estimated CRCL calculation 95 ml/min; Estimated Glomerular Filt Rate > 60; Ethanol < 10 mg/dL (<10); Glucose 151 mg/dL (65-110); Potassium 3.8 mmol/L (3.4-5.0); Salicylate < 1.0 mg/dL (2-20); Sodium 138 mmol/L (137-145)
[2021-08-16 17:00] LABS: Add Urine Microscopic? YES; Appearance Urine Clear (Clear); Bacteria Urine Trace /hpf; Bilirubin Urine Negative (Negative); Blood Urine Negative (Negative); Color Urine Yellow (Yellow); Glucose Urine UA Negative (Negative); Ketones Urine Trace mg/dL (Negative); Leukocyte Esterase Ur Trace LEU/UL (Negative); Mucus Urine Rare /lpf; Nitrate Urine Negative (Negative); Protein Urine Negative (Negative); Specific Grav Ur 1.009 (1.001-1.035); Squamous Epithelial Cell Urine Rare /hpf (Few); Urobilinogen Urine Negative mg/dL (<2.0); WBC Urine 0-3 /hpf
[2021-08-16 17:23] LABS: Amphetamine Screen Urine Negative (Negative); Barbiturate Screen Urine Negative (Negative); Benzodiazepines Screen Urine Negative (Negative); Cannabinoid Screen Urine Positive (Negative); Cocaine Screen Urine Negative (Negative); Methadone Screen Urine Negative (Negative); Opiate Screen Urine Negative (Negative); Phencyclidine Screen Urine Negative (Negative)
--- NOTE | 2021-08-16 17:24 | PC.NURSE ---
Patient given food tray. at the bedside.
[2021-08-16 18:24] LABS: SARS-CoV-2 RNA PCR Negative
--- NOTE | 2021-08-16 19:16 | PC.NURSE ---
1805 Crisis armorer technician at the bedside.
[2021-08-16 20:14] VITALS: BP 163/100; PULSE 84; RESP 16; O2SAT 98
== END 2021-08-16 20:17 | disposition home or self-care (01) ==
PROVIDERS: Emergency Provider Emergency Medicine; PCP Nurse Practitioner Family
DX: R45.851 Suicidal ideations (principal); Z20.822 Contact with and (suspected) exposure to COVID-19; K76.9 Liver disease, unspecified; E07.9 Disorder of thyroid, unspecified; M19.90 Unspecified osteoarthritis, unspecified site; F32.A Depression, unspecified; Z98.1 Arthrodesis status; Z79.4 Long term (current) use of insulin
CPT/HCPCS: 36415; 80053; 80307; 81001; 84443; 85025; 99284; A9270; C9803; U0003; U0005

== ENCOUNTER 2021-09-14 12:43 | Emergency (ER) | payer BC, SELFPAY ==
[2021-09-14 12:59] VITALS: BP 198/102; PULSE 91; RESP 18; TEMP 36.7; O2SAT 100
--- NOTE | 2021-09-14 13:09 | ECG_ITS ---
Measurements Intervals [place] Rate: 91 P: 51 [place]: 161 QRS: 5 QRSD: 89 T: 54 QT: 365 QTc: 450 Interpretive Statements SINUS RHYTHM INCOMPLETE RIGHT BUNDLE-BRANCH BLOCK DELAYED R/S TRANSITION BORDERLINE ECG COMPARED TO ECG 12/21/2019 12:09:12 NO SIGNIFICANT CHANGES Electronically Signed On 09-14-2021 16:56:18 CDT by Jacky Davis M.D.
--- NOTE | 2021-09-14 13:30 | PC.NURSE ---
Spoke at length with pt about her situation. Pt states she has been trying to change her medications to find one that works for her. She states she has had alot of stressors and feels like the medication she was switched to is not working. Pt states she has no intention on acting on the thoughts she is having but states that she already told her to change the lock on the gun safe as a precaution. Pt is frustrated by the situation and states that she was trying to be honest with her doctor about how she was feeling and states he wouldnt listen to her once she stated that she had some SI. At this time, pt is calm, cooperative and answering all questions appropriately. Spoke with NARCISA Abrams about pt being a moderate risk and she agrees that she doesn't need a sitter at this time.
[2021-09-14 13:59] LABS: Basophils Percent Auto 0.4 % (0.2-1.2); Eosinophils Absolute Auto 0.1 K/mm3 (0-0.3); Hematocrit 45.1 % (37.0-47.0); Hemoglobin 14.4 g/dL (12.0-15.0); Immature Granulocyte Absolute 0.04 K/mm3 (0.00-0.031); Immature Granulocyte Percent A 0.5 % (0-0.5); Lymphocytes Percent Auto 24.1 % (18.3-44.2); Mean Corpuscular HGB Conc 31.9 g/dl (32-36); Mean Corpuscular Hemoglobin 28.4 pg (26-34); Mean Platelet Volume 9.5 fl (7.4-10.4); Monocytes Absolute Auto 0.5 K/mm3 (0.1-0.6); Monocytes Percent Auto 6.8 % (2.6-8.5); Neutrophils Absolute Auto 5.3 K/mm3 (1.3-6.7); Neutrophils Percent Auto 67.2 % (45.5-73.1); Platelet Count Result 262 k/mm3 (150-375); Red Blood Count 5.07 M/mm3 (4.2-5.4); Red Cell Distribution Width 12.9 % (11.5-14.5); White Blood Count 7.9 K/mm3 (4.5-10.0)
[2021-09-14 14:04] LABS: Add Urine Microscopic? NO; Appearance Urine Clear (Clear); Bilirubin Urine Negative (Negative); Blood Urine Negative (Negative); Color Urine Yellow (Yellow); Glucose Urine UA Negative (Negative); Ketones Urine Negative (Negative); Leukocyte Esterase Ur Negative LEU/UL (Negative); Nitrate Urine Negative (Negative); Protein Urine Negative (Negative); Specific Grav Ur 1.011 (1.001-1.035); Urobilinogen Urine Negative mg/dL (<2.0)
[2021-09-14 14:11] LABS: Ethanol < 10 mg/dL (<10)
[2021-09-14 14:12] LABS: Alanine Aminotransferase 28 U/L (4-35); Albumin Level 4.4 g/dL (3.5-5.1); Alkaline Phosphatase 109 U/L (38-126); Anion Gap 6 mmol/L (8-16); Aspartate Amino Transferase 32 U/L (14-36); Bilirubin,Total 0.5 mg/dL (0.2-1.3); Blood Urea Nitrogen 11 mg/dL (7-17); Calcium 9.2 mg/dL (8.4-10.2); Carbon Dioxide 30 mmol/L (22-30); Chloride 105 mmol/L (98-107); Estimated Glomerular Filt Rate > 60; Glucose 135 mg/dL (65-110); Sodium 141 mmol/L (137-145)
[2021-09-14 14:17] LABS: Amphetamine Screen Urine Negative (Negative); Barbiturate Screen Urine Negative (Negative); Benzodiazepines Screen Urine Negative (Negative); Cannabinoid Screen Urine Positive (Negative); Cocaine Screen Urine Negative (Negative); Methadone Screen Urine Negative (Negative); Opiate Screen Urine Negative (Negative); Phencyclidine Screen Urine Negative (Negative)
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
[2021-09-14 14:35] LABS: SARS-CoV-2 RNA PCR Negative
[2021-09-14 16:24] LABS: Glucose Point of Care 103 mg/dl (65-105)
[2021-09-14 16:55] VITALS: BP 148/79; PULSE 86; RESP 16; O2SAT 99
[2021-09-14 19:50] VITALS: BP 138/79; PULSE 70; RESP 16; O2SAT 97
== END 2021-09-14 19:50 | disposition home or self-care (01) ==
PROVIDERS: Physician Assistant; Emergency Provider Emergency Medicine; PCP Nurse Practitioner Family
DX: R45.851 Suicidal ideations (principal); F32.A Depression, unspecified; Z20.822 Contact with and (suspected) exposure to COVID-19; M19.90 Unspecified osteoarthritis, unspecified site; K76.9 Liver disease, unspecified; E07.9 Disorder of thyroid, unspecified; Z98.1 Arthrodesis status; I45.10 Unspecified right bundle-branch block
CPT/HCPCS: 36415; 80053; 80307; 81003; 82948; 84443; 85025; 93005; 99284; C9803; U0003; U0005

== ENCOUNTER 2021-12-18 14:17 | Outpatient (CLI) | payer BC, SELFPAY ==
--- NOTE | ~2021-12-18 | DEXA_ITS ---
Bone Density Report Name: DANIS SETHI Age: 51 Sex: Female Ethnicity: White Date of : 1970 Indication: postmenopausal; screening for osteoporosis; height loss; inflammatory bowel disease; prior fracture; hysterectomy; Referring Provider: DAIJA, YAJAIRA Carlos Study: Bone densitometry was performed. Exam Date: December 18, 2021 Accession number: [id number] Bone Density: Region BMD T-score Z-score Classification AP Spine(L1-L4) 0.771 -2.5 -1.7 Osteoporosis Femoral Neck (Left) 0.636 -1.9 -1.1 Osteopenia Total Hip (Left) 0.834 -0.9 -0.4 Normal Femoral Neck (Right) 0.704 -1.3 -0.5 Osteopenia Total Hip (Right) 0.830 -0.9 -0.4 Normal Total Hip Mean 0.832 -0.9 -0.4 Normal World Health Organization criteria for BMD impression classify patients as: Normal (T-score at or above -1.0), Osteopenia (T-score between -1.0 and -2.5), or Osteoporosis (T-score at or below -2.5). 10-year Fracture Risk: FRAX not reported because: Some T-score for Spine Total or Hip Total or Femoral Neck at or below -2.5 Clinical Information Provided by Patient: Has had a low trauma fracture Has used the following medications: Vitamin D Has the following medical conditions: Inflammatory bowel diseases, Hysterectomy Patient maximum height was 65 Menopause Age: 33 No regular weight bearing exercise Drinks caffeinated beverages Onset of menses at age 14 Number of children 1 Impression: The patient has established osteoporosis, based on the Total Spine T-score and the existence of a prior fracture. The patient has risk factors, including: previous fracture. Discussion: HIGH RISK OF FRACTURE. BONE DENSITY IS UNDESIRABLY LOW AT ONE OR MORE SKELETAL SITES, CONSISTENT WITH POSTMENOPAUSAL OSTEOPOROSIS. This patient's lowest T-score, in a patient who has previously fractured, meets the World Health Organization's (WHO) criteria for severe osteoporosis. In untreated patients, the risk of osteoporotic fracture increases approximately two-fold for each 1.0 SD decrease in T-score. Low bone density is not the only risk factor for fracture; also consider factors such as patient's age, frailty or poor health, risk of falling, risk of injury, previous osteoporotic fracture, family history of osteoporosis, cigarette smoking, low body weight, etc. Not everyone with low bone mineral density has osteoporosis; osteomalacia and other metabolic bone disorders should also be considered. Patients who have osteoporosis should be evaluated for specific diseases and conditions (secondary causes) that may cause or contribute to bone loss. The [place] [employer] Endocrinologists (AACE) and National Osteoporosis Foundation (NOF) recommend pharmacologic intervention for all postmenopausal women whose T-score is in this range. The patient should foll
== END 2021-12-18 14:18 | disposition home or self-care (01) ==
LOC: ANHIMG 14:19
PROVIDERS: PCP Nurse Practitioner Family; Visit Provider Nurse Practitioner Family
DX: Z78.0 Asymptomatic menopausal state (principal); M81.0 Age-related osteoporosis without current pathological fracture; M85.852 Other specified disorders of bone density and structure, left thigh; M85.851 Other specified disorders of bone density and structure, right thigh
CPT/HCPCS: 77080

== ENCOUNTER 2022-05-17 15:35 | Emergency (ER) | payer BC, SELFPAY ==
[2022-05-17] VITALS (8 sets, daily range): BP systolic 149–169; BP diastolic 82–102; PULSE 84–96; RESP 12–18; TEMP 36.7–36.8; O2SAT 98–100
--- NOTE | ~2022-05-17 | XR_ITS ---
XR chest 2V DATE: 05/17/2022 16:42 INDICATION: Chest pain, nausea. Hypertension. Diabetes. TECHNIQUE: PA and lateral views COMPARISON: 05/18/2021 2 view chest FINDINGS: Normal heart size. No hilar or mediastinal enlargement. No pulmonary infiltrate or consolid ation, pleural effusion or pulmonary vascular congestion or pneumothorax. Status post anterior cervical spine surgical fusion. Osteopenia. Mild thoracic scoliosis. Status post cholecystectomy. IMPRESSION: No active cardiopulmonary disease Reviewed, dictated and finalized at location B. TY TREASURER
--- NOTE | 2022-05-17 15:36 | ECG_ITS ---
Measurements Intervals [place] Rate: 79 P: 24 IA: 153 QRS: -27 QRSD: 87 T: 70 QT: 368 QTc: 422 Interpretive Statements SINUS RHYTHM RSR' IN V1 OR V2, PROBABLY NORMAL VARIANT CONSIDER INFERIOR INFARCT, AGE INDETERMINATE BASELINE ARTIFACT- V4 ABNORMAL ECG COMPARED TO ECG 09/14/2021 13:42:38 NO SIGNIFICANT CHANGES Electronically Signed On 05-17-2022 17:49:19 MEDICAL AND HEALTH SERVICES MANAGER by Michael Pack D.O.
[2022-05-17 16:37] LABS: Basophils Percent Auto 0.4 % (0.2-1.2); Eosinophils Absolute Auto 0.1 K/mm3 (0-0.3); Eosinophils Percent Auto 0.9 % (0-4.4); Hematocrit 44.2 % (37.0-47.0); Hemoglobin 14.3 g/dL (12.0-15.0); Immature Granulocyte Absolute 0.01 K/mm3 (0.00-0.031); Immature Granulocyte Percent A 0.1 % (0-0.5); Lymphocytes Absolute Auto 2.22 K/mm3 (0.9-3.2); Lymphocytes Percent Auto 24.6 % (18.3-44.2); Mean Corpuscular HGB Conc 32.4 g/dl (32-36); Mean Corpuscular Hemoglobin 27.9 pg (26-34); Mean Corpuscular Volume 86.2 fl (80-100); Mean Platelet Volume 9.9 fl (7.4-10.4); Monocytes Absolute Auto 0.6 K/mm3 (0.1-0.6); Neutrophils Absolute Auto 6.1 K/mm3 (1.3-6.7); Platelet Count Result 279 k/mm3 (150-375); Red Blood Count 5.13 M/mm3 (4.2-5.4); Red Cell Distribution Width 12.8 % (11.5-14.5)
[2022-05-17 16:47] LABS: INR 1.1; Prothrombin Time 13.6 Seconds (11.1-14.7)
[2022-05-17 16:48] LABS: Partial Thromboplastin Time 28.9 SECONDS (22.3-36.8)
[2022-05-17 16:51] LABS: Alanine Aminotransferase 27 U/L (6-35); Albumin Level 4.5 g/dL (3.5-5.1); Alkaline Phosphatase 98 U/L (38-126); Anion Gap 9 mmol/L (8-16); Aspartate Amino Transferase 28 U/L (14-36); Bilirubin,Total 0.7 mg/dL (0.2-1.3); Blood Urea Nitrogen 14 mg/dL (7-17); Calcium 9.3 mg/dL (8.4-10.2); Carbon Dioxide 29 mmol/L (22-30); Chloride 102 mmol/L (98-107); Estimated CRCL calculation 75 ml/min; Estimated Glomerular Filt Rate > 60; Glucose 118 mg/dL (65-110); Lipase 214 U/L (23-300); Potassium 4.4 mmol/L (3.4-5.0); Sodium 140 mmol/L (137-145)
[2022-05-17 17:01] LABS: Troponin I < 0.012 ng/mL (0.000-0.034)
[2022-05-17 19:48] LABS: Troponin I < 0.012 ng/mL (0.000-0.034)
--- NOTE | 2022-05-17 22:03 | ED.CHESTPAIN ---
HPI - Chest Pain General Chief Complaint: Chest Pain Stated Complaint: chest pain Time Seen by Provider: 05/17/22 21:21 History of Present Illness HPI narrative: 52-year-old female presents to the emergency room for evaluation of chest pressure that occurred after multiple episodes of vomiting. Patient states that she felt a pressure in the middle of her chest that radiated into her back for about an hour after vomiting. Patient called EMS and was transported to the ER. In route was given an aspirin and 2 nitros which did not alleviate her symptoms. Patient states throughout the course of her waiting in the waiting room, her pain resolved. Related Data Home Medications Medication Instructions Recorded Confirmed cinnamon bark 500 mg capsule 500 mg PO DAILY 08/02/19 04/29/22 (Cinnamon) colesevelam 625 mg tablet (WelChol) 3,750 mg PO DAILY 08/02/19 04/29/22 milk thistle 150 mg capsule 150 mg PO DAILY 08/02/19 04/29/22 pantoprazole 40 mg tablet,delayed 40 mg PO QAM 08/02/19 04/29/22 release thyroid (pork) 180 mg tablet 180 mg PO DAILY 08/02/19 04/29/22 ([place] Thyroid) zinc acetate 50 mg (zinc) capsule 50 mg PO DAILY 08/02/19 04/29/22 (Galzin) bupropion HCl 150 mg 24 hr tablet, 300 mg PO .COMPLEX 12/05/19 04/29/22 extended release (Wellbutrin XL) cholecalciferol (vitamin D3) 1,250 1,250 mcg PO WEEKLY 09/25/20 04/29/22 mcg (50,000 unit) capsule mirabegron 25 mg tablet,extended 25 mg PO DAILY 09/25/20 04/29/22 release 24 hr (Myrbetriq) duloxetine 60 mg capsule,delayed 60 mg PO DAILY 11/26/21 04/29/22 release lysine 500 mg tablet (L-Lysine) 500 mg PO DAILY 11/26/21 04/29/22 magnesium 200 mg tablet 200 mg PO DAILY 11/26/21 04/29/22 semaglutide 2 mg/dose (8 mg/3 mL) 2 mg subcut WEEKLY 11/26/21 04/29/22 subcutaneous pen injector (Ozempic) ustekinumab 45 mg/0.5 mL 45 mg subcut .q8w 04/29/22 04/29/22 subcutaneous syringe (Stelara) Allergies Allergy/AdvReac Type Severity Reaction Status Date / Time Quinolones Allergy Mild RASH Verified 04/29/22 11:02 ciprofloxacin Allergy Unknown Unknown Verified 04/29/22 11:02 amoxicillin AdvReac Unknown Diarrhea Verified 04/29/22 11:02 clavulanic acid AdvReac Unknown Diarrhea Verified 04/29/22 11:02 gatifloxacin AdvReac Unknown Diarrhea Verified 04/29/22 11:02 Review of Systems Review of Systems: CONSTITUTIONAL: Denies fever, chills, or sweats. EYES: Denies visual changes, redness, or discharge. ENT: Denies rhinorrhea, congestion, sore throat, or otalgia. CARDIOVASCULAR: Denies chest pain, palpitations, or edema. RESPIRATORY: Denies cough or dyspnea. GASTROINTESTINAL: Denies abdominal pain, nausea, vomiting, or diarrhea. GENITOURINARY: Denies dysuria or hematuria. SKIN: Denies rash or itching. MUSCULOSKELETAL: Denies back pain, joint pain, or myalgia. NEUROLOGIC: Denies headache, numbness, dizziness, or weakness. PSYCHIATRIC: Denies anxiety or depression. [facility] Past Medical History Medical History Arthritis Back pain Cholecystectomy planned Depression Hyperlipidemia Hypothyroidism, acquired Liver disease NAFLD (nonalcoholic fatty liver disease) Ovarian cyst Sleep apnea Traumatic closed fx distal end right radius w/minimal displacement Type 2 diabetes mellitus with hyperglycemia, with long-term current use of insulin Ulcer Surgical History Surgical History H/O spinal fusion H/O wrist surgery H/O: hysterectomy History of bilateral salpingo-oophorectomy History of bilateral tubal ligation History of cholecystectomy History of foot surgery History of ovarian cystectomy Hx of tonsillectomy Status post trigger finger release Family History Family History Other Family history of mental disorder Family history of thyroid disease Social History Social History (Reviewed 05/17/22 @ 22:11 by Raul
== END 2022-05-17 22:15 | disposition home or self-care (01) ==
PROVIDERS: Emergency Medicine; Emergency Provider Nurse Practitioner Family; PCP Nurse Practitioner Family
DX: R07.89 Other chest pain (principal); K22.4 Dyskinesia of esophagus; R03.0 Elevated blood-pressure reading, without diagnosis of hypertension; E11.9 Type 2 diabetes mellitus without complications; E78.5 Hyperlipidemia, unspecified; E03.9 Hypothyroidism, unspecified; K76.0 Fatty (change of) liver, not elsewhere classified; M19.90 Unspecified osteoarthritis, unspecified site; G47.30 Sleep apnea, unspecified; F32.A Depression, unspecified; Z98.1 Arthrodesis status; Z90.710 Acquired absence of both cervix and uterus; Z90.722 Acquired absence of ovaries, bilateral; Z90.79 Acquired absence of other genital organ(s); Z87.891 Personal history of nicotine dependence; Z79.85 Long-term (current) use of injectable non-insulin antidiabetic drugs; R94.31 Abnormal electrocardiogram [ECG] [EKG]
CPT/HCPCS: 36415; 71046; 80053; 83690; 84484; 85025; 85610; 85730; 93005; 99284

== ENCOUNTER 2022-08-27 11:00 | Outpatient (RCR) | payer BC, SELFPAY ==
--- NOTE | 2022-06-23 10:36 | BUSTOPEVAL1 ---
Assessment and note entered by Radha Alcantara SPAGHETTI PRESS HELPER Evaluation Information Assessment Status Evaluation Diagnosis Laryngopharyngeal Reflux/Dysphagia Subjective Information The patient reports that she was seen for a Modified Barium Swallow study at this facility several years ago for complaints that certain foods such as ground hamburger, rice, and the skins of grapes, for example, hang up in her throat. She reports that she feels that her cricopharyngeal sphincter tightens up and that these small pieces of food sit at the base of her throat or the top of her esophagus and she is unable to swallow them and remove the sensation that something is in the throat after swallowing. She brought grapes to her Modified Barium Swallow however at that time, findings were insignificant. Today she reports she is still having this issue and wants to pursue swallowing therapy to improve her swallowing and reduce her complaints of solid foods hanging up in her throat. Reported Pain Level Pain Score 0: Self Report Assessment ST Clinical Summary BEDSIDE SWALLOW EVALUATION This patient was seen for a review of her swallowing skills today and informal assessment of her voice. She was diagnosed with Laryngoesophageal Reflux which often lends itself to a voice disorder, hwoever when discussing her complaints, the patient reported that her bigger concern is her complaint of small pieces of solid food hanging up in her throat after swallowing. She reported that she can taste and feel small pieces of food such as ground hamburger, rice, and the skin of grapes after she has completed her swallows. She reported that she has been assessed by gastroenteroligst for upper GI and has had scopes on several occasions and the only diagnosis she was given was esophageal ulcers at the top of her esophagus. She also reports a history of gastroesophageal reflux disease. Patient did not consume food or liquid at this time however her Modified Barium Swallow from was reviewed as patient continues to report the same concerns. With the Modified Barium Swallow study, patient brought in several grapes to eat because she stated that she can feel the skins at the top o
--- NOTE | 2022-07-08 11:30 | PCSTNOTE ---
The patient treatment was not able to be completed on 07/08 due to patient cancellation. Will plan to continue treatment per plan of care.
--- NOTE | 2022-07-20 15:20 | PCSTNOTE ---
The patient treatment was not able to be completed on 07/19 due to bad weather. Will plan to continue treatment per plan of care.
--- NOTE | 2022-07-28 14:13 | STOPPROG ---
Assessment and note entered by Radha Alcantara, INSPECTOR MACHINE CUT GLASS Evaluation Information Assessment Status Progress Assessment ST Clinical Summary PROGRESS NOTE AND TREATMENT SUMMARY Patient had initial swallowing evaluation on 06/22 and has received 7 treatment sessions since that time focusing on VitalStim, neuromuscular electrical stimulation to the throat for up to 50 minutes at up to 12.0 mA with no adverse effects. Today, she completed 50+ hard, effortful swallows while receiving electrical stimulation to the throat. Patient reports that she feels that Speech Therapy has been helpful; she states that she feels that the issue that has brought her in has settled a little bit. Patient additionally stated, I have times when I still feel that something is back there. When patient feels residue in the back of the throat, she states that she remembers to do certain techniques including hard swallows and head flexion, drinking liquid to wash it down. Today the patient reports that she still feels a piece of bagel in the back of her throat. She stated that initially, she felt at least small amounts of residue 98% of the time, however currently patient feels residue around 50% of the time. Patient reports that because she feels that the electrical stimulation has been the mendoza factor in improving her swallowing strength, she would like to conitnue in Speech Therapy for another 2-4 weeks to see if the frequency of occurance can decrease to 25% of the time or less. Today the patient tolerated 50 minutes of VitalStim to the throat at up to 12.0 mA with no adverse effects. She drank water and completed 50+ hard, effortful swallows during this time period. Therapy will continue 2x/week for four additional weeks to continue to strengthen the back of/base of tongue to further reduce her complaints of pharyngeal residue after swallowing. Plan of Care Interventions Treatment of Swallowing D ST Services Indicated Yes
--- NOTE | 2022-08-03 10:46 | PCSTNOTE ---
The patient treatment was not able to be completed on 07/30 due to patient illness. Will plan to continue treatment per plan of care.
--- NOTE | 2022-08-27 12:40 | STOPDC ---
Assessment and note entered by Radha Alcantara ADMISSIONS GATE ATTENDANT Evaluation Information Assessment Status Discharge Reported Pain Level Pain Score 0: Self Report Assessment ST Clinical Summary TREATMENT SESSION AND DISCHARGE SESSION Patient was seen for a Modified Barium Swallow study two years ago in June for complaints of small food, skin of food, crumbs hanging up in the back of her throat after completing swallows. The Modified Barium Swallow test at that time revealed swallowing skills were within normal limits although patient continued to report feeling food there after the end of the evaluation. It was not until today that patient revealed she had had surgery to C4-6 several years ago and upon reflection, reported that she does feel her swallowing complaints started after that surgery. Patient has had 16 sessions of Speech Therapy focusing on use of VitalStim, neuromuscular electrical stimulation to the throat, while swallowing at least every minute while electrodes were placed. She completed hard effortful swallows, swallows with chin tuck against resistance, and the Masaka maneuver throughout each session. By time of discharge, patient reported she felt her swallowing had significantly improved and she felt residual in the throat/back of tongue less than 25% of the time. She stated that initially she had to really think about how to complete the exercises, but now they come more naturally and she feels her swallowing skills on the whole have improved. Patient is being discharged this date with goals achieved and home program in place. She has agreed to continue to complete the exercises weekly to maintain skills. Plan of Care ST Services Indicated No
== END 2022-08-30 09:36 | disposition home or self-care (01) ==
LOC: ANHST 11:00
PROVIDERS: Visit Provider Otolaryngology
DX: K21.9 Gastro-esophageal reflux disease without esophagitis (principal)
CPT/HCPCS: 92524; 92526; 92610; 92611

== ENCOUNTER 2023-02-08 00:48 | Emergency (ER) | payer BC, SELFPAY ==
[2023-02-08 01:46] VITALS: BP 147/82; PULSE 115; RESP 16; TEMP 36.2; O2SAT 98
[2023-02-08 02:42] VITALS: BP 154/97; PULSE 97; RESP 18; O2SAT 100
[2023-02-08] MEDS: HYDROcodone/acetaminophen (*CRX) 10-325 MG TABLET 1 TAB PO (05:18)
[2023-02-08] MEDS: CEPHALEXIN 500 MG CAPSULE PO (05:18)
--- NOTE | 2023-02-08 05:54 | ED.GENADULT ---
HPI - General Adult General Chief complaint: Extremity Injury, Lower Stated complaint: left leg pain Time Seen by Provider: 02/08/23 04:31 History of Present Illness HPI narrative: this is a 52-year-old female history of psoriasis, fibromyalgia presenting with left calf pain. Patient was packed by her rooster 2 days ago. Since then she has developed mild erythema along the calf as well as warmth and pain. She read on [employer] that calf pain could be due to DVT and came to the ER for evaluation. She denies systemic signs of illness such as fever chills nausea vomiting diarrhea. Related Data Home Medications Medication Instructions Recorded Confirmed cinnamon bark 500 mg capsule 500 mg PO DAILY 08/02/19 04/29/22 (Cinnamon) colesevelam 625 mg tablet (WelChol) 3,750 mg PO DAILY 08/02/19 04/29/22 milk thistle 150 mg capsule 150 mg PO DAILY 08/02/19 04/29/22 pantoprazole 40 mg tablet,delayed 40 mg PO QAM 08/02/19 04/29/22 release thyroid (pork) 180 mg tablet 180 mg PO DAILY 08/02/19 04/29/22 ([place] Thyroid) zinc acetate 50 mg (zinc) capsule 50 mg PO DAILY 08/02/19 04/29/22 (Galzin) bupropion HCl 150 mg 24 hr tablet, 300 mg PO .COMPLEX 12/05/19 04/29/22 extended release (Wellbutrin XL) cholecalciferol (vitamin D3) 1,250 1,250 mcg PO WEEKLY 09/25/20 04/29/22 mcg (50,000 unit) capsule mirabegron 25 mg tablet,extended 25 mg PO DAILY 09/25/20 04/29/22 release 24 hr (Myrbetriq) duloxetine 60 mg capsule,delayed 60 mg PO DAILY 11/26/21 04/29/22 release lysine 500 mg tablet (L-Lysine) 500 mg PO DAILY 11/26/21 04/29/22 magnesium 200 mg tablet 200 mg PO DAILY 11/26/21 04/29/22 semaglutide 2 mg/dose (8 mg/3 mL) 2 mg subcut WEEKLY 11/26/21 04/29/22 subcutaneous pen injector (Ozempic) ustekinumab 45 mg/0.5 mL 45 mg subcut .q8w 04/29/22 04/29/22 subcutaneous syringe (Stelara) Allergies Allergy/AdvReac Type Severity Reaction Status Date / Time Quinolones Allergy Mild RASH Verified 02/08/23 02:44 ciprofloxacin Allergy Unknown Unknown Verified 02/08/23 02:44 amoxicillin AdvReac Unknown Diarrhea Verified 02/08/23 02:44 clavulanic acid AdvReac Unknown Diarrhea Verified 02/08/23 02:44 gatifloxacin AdvReac Unknown Diarrhea Verified 02/08/23 02:44 PMFSH Past Medical History Medical History Arthritis Back pain Cholecystectomy planned Depression Hyperlipidemia Hypothyroidism, acquired Liver disease NAFLD (nonalcoholic fatty liver disease) Ovarian cyst Sleep apnea Traumatic closed fx distal end right radius w/minimal displacement Type 2 diabetes mellitus with hyperglycemia, with long-term current use of insulin Ulcer Surgical History Surgical History H/O spinal fusion H/O wrist surgery H/O: hysterectomy History of bilateral salpingo-oophorectomy History of bilateral tubal ligation History of cholecystectomy History of foot surgery History of ovarian cystectomy Hx of tonsillectomy Status post trigger finger release Family History Family History Other Family history of mental disorder Family history of thyroid disease Social History Social History Smoking packs per day: 1 Smoking cigarettes per day: 20.0 Years smoked: 15 Smoking pack-years: 15.00 Smoking status: Former smoker Additional smoking assessment comments: Stopped 22 years ago Alcohol intake: never Substance use: current Substance use type: marijuana Other substance usage details: medical marijuana at night Gender identity (if verbalized by the patient): Female Exam Narrative: APPEARANCE: No apparent distress. Head: atraumatic. EYES: EOMI, NOSE: Atraumatic NECK: Trachea midline RESPIRATORY: No increased rate of breathing CARDIOVASCULAR: RRR, ABDOMINAL: Non-distended MUSCULOSKELETAl: No obvious def
== END 2023-02-08 06:15 | disposition home or self-care (01) ==
PROVIDERS: Emergency Provider Emergency Medicine; PCP Nurse Practitioner Family
DX: L03.116 Cellulitis of left lower limb (principal); E11.9 Type 2 diabetes mellitus without complications; E78.5 Hyperlipidemia, unspecified; E03.9 Hypothyroidism, unspecified; K76.0 Fatty (change of) liver, not elsewhere classified; G47.30 Sleep apnea, unspecified; L40.9 Psoriasis, unspecified; M35.9 Systemic involvement of connective tissue, unspecified; M19.90 Unspecified osteoarthritis, unspecified site; M79.7 Fibromyalgia; F32.A Depression, unspecified; Z98.1 Arthrodesis status; Z87.891 Personal history of nicotine dependence; Z90.722 Acquired absence of ovaries, bilateral; Z90.79 Acquired absence of other genital organ(s); Z90.49 Acquired absence of other specified parts of digestive tract; Z79.85 Long-term (current) use of injectable non-insulin antidiabetic drugs
CPT/HCPCS: 99283; A9270

== ENCOUNTER 2023-08-05 10:27 | Outpatient (CLI) | payer BC, SELFPAY ==
--- NOTE | ~2023-08-05 | MR_ITS ---
MRI of the brain Clinical History: Chronic headache Technique: Axial and sagittal T1-weighted images were acquired. These were followed by axial T2-weigh kt, diffusion weighted, gradient, and FLAIR images. Following intravenous administration of 17 cc Mu ltiHance gadolinium, T1-weighted fat-sat imaging was performed in the axial and coronal planes. Findings: There is no abnormal signal in the brain parenchyma. No acute infarct, intracranial hemorrh age, or mass lesion identified. Ventricles and subarachnoid spaces are unremarkable. Orbits are unremarkable. Paranasal sinuses and m astoid air cells are clear. Major intracranial flow voids are intact. Sagittal midline structures are intact. No abnormal postcontrast enhancement. IMPRESSION: Unremarkable exam. Reviewed, dictated and finalized at location . OARD BUILDER IMPRESSION: Unremarkable exam.
== END 2023-08-05 10:28 ==
LOC: MICIMG 10:27
PROVIDERS: PCP Family Medicine; Visit Provider Family Medicine
DX: G44.89 Other headache syndrome (principal)
CPT/HCPCS: 70553; A9577

== ENCOUNTER 2023-10-31 11:06 | Outpatient (CLI) | payer BC, SELFPAY ==
--- NOTE | ~2023-10-31 | XR_ITS ---
EXAMINATION: XR sacroiliac joints min 3V DATE: 10/31/2023 11:47 INDICATION: Sacroiliac joint pain. TECHNIQUE: 3 views of the sacroiliac joints were obtained. COMPARISON: CT abdomen and pelvis 10/11/2011 FINDINGS: There is lumbar levocurvature. No fracture. There is moderate osteoarthritis of the sacroil iac joints. IMPRESSION: 1. Moderate osteoarthritis of the sacroiliac joints. Reviewed, dictated and finalized at location A.
--- NOTE | ~2023-10-31 | MR_ITS ---
MRI of the lumbar spine Clinical History: Radiculopathy Technique: Axial T2-weighted images, and sagittal T1-weighted, T2-weighted, and T2 fat-sat images wer e acquired. Findings: There is no fracture or subluxation of the lumbar spine. Vertebral bodies maintain normal h eight and alignment. No suspicious bone marrow signal abnormality seen. At L1-L2, there is mild degenerative disc 9. There is disc bulge, especially the left side, with mode rate facet arthropathy. No davian central canal stenosis or neural foraminal narrowing. At L2-L3, there is mild disc bulge with moderate facet arthropathy. No central canal stenosis. There is mild left neural foraminal narrowing. Right neural foramen preserved. At L3-L4, there is minimal disc bulge with moderate facet arthropathy. No central canal stenosis. The re is mild left neural foraminal narrowing. Right neural foramen preserved. At L4-L5, there is mild disc bulge with moderate facet arthropathy. No central canal stenosis. There is mild bilateral neural foraminal narrowing. At L5-S1, there is minimal disc bulge with moderate to advanced facet arthropathy. No central canal s tenosis or neural foraminal narrowing. Paravertebral soft tissues are unremarkable. Impression: Mild degenerative spondylosis overall, as detailed above. Reviewed, dictated and finalized at location . Impression: Mild degenerative spondylosis overall, as detailed above.
== END 2023-10-31 11:07 ==
LOC: MICIMG 11:07
PROVIDERS: PCP Nurse Practitioner Family; Visit Provider Nurse Practitioner Family
DX: M53.3 Sacrococcygeal disorders, not elsewhere classified (principal); M47.26 Other spondylosis with radiculopathy, lumbar region
CPT/HCPCS: 72148; 72202

== ENCOUNTER 2024-04-04 15:04 | Outpatient (CLI) | payer BC, SELFPAY ==
--- NOTE | ~2024-04-04 | DEXA_ITS ---
Bone Density Report Name: DANIS SETHI Age: 53 Sex: Female Ethnicity: White Date of : 1970 Indication: postmenopausal; screening for osteoporosis; height loss; inflammatory bowel disease; hysterectomy; Referring Provider: DENISE FONTANA Study: Bone densitometry was performed. Exam Date: April 04, 2024 Accession number: [id number] Bone Density: Region BMD T-score Z-score Classification AP Spine(L1-L4) 0.914 -1.2 -0.3 Osteopenia Femoral Neck (Left) 0.636 -1.9 -1.0 Osteopenia Total Hip (Left) 0.882 -0.5 0.1 Normal Femoral Neck (Right) 0.653 -1.8 -0.8 Osteopenia Total Hip (Right) 0.877 -0.5 0.1 Normal Total Hip Mean 0.879 -0.5 0.1 Normal World Health Organization criteria for BMD impression classify patients as: Normal (T-score at or above -1.0), Osteopenia (T-score between -1.0 and -2.5), or Osteoporosis (T-score at or below -2.5). 10-year Fracture Risk: FRAX not reported because: Treated for osteoporosis Clinical Information Provided by Patient: Is being treated for osteoporosis Has used the following medications: Reclast (i.e. zoledronate), Vitamin D, Calcium Has the following medical conditions: Inflammatory bowel diseases, Hysterectomy Patient maximum height was 65 Menopause Age: 33 No regular weight bearing exercise Drinks caffeinated beverages Onset of menses at age 14 Number of children 1 Impression: The patient has low bone mass, based on the Left Femoral Neck T-score. Discussion: It is important to ask patients whether they are taking their medications and to encourage continued and appropriate compliance with their osteoporosis therapies to reduce fracture risk. It is also important to review their risk factors and encourage appropriate calcium and vitamin D intakes, exercise, fall prevention and other lifestyle measures. Follow-Up: Consider a repeat BMD and Vertebral Fracture Assessment (VFA) exam in 2 years or sooner if medically necessary, to reassess this patient's status. Reported by: MARYAN on 04/04/2024 3:34:00 PM. Reviewed, dictated and finalized at location [facility]
== END 2024-04-04 15:05 | disposition home or self-care (01) ==
LOC: ANHIMG 15:05
PROVIDERS: PCP Family Medicine; Visit Provider Internal Medicine Endocrinology, Diabetes & Metabolism
DX: M81.0 Age-related osteoporosis without current pathological fracture (principal); M85.88 Other specified disorders of bone density and structure, other site; M85.852 Other specified disorders of bone density and structure, left thigh; M85.851 Other specified disorders of bone density and structure, right thigh
CPT/HCPCS: 77080

== ENCOUNTER 2025-01-04 13:11 | Outpatient (CLI) | payer BC, SELFPAY ==
--- NOTE | ~2025-01-04 | XR_ITS ---
Left ankle Technique: AP, oblique, and lateral views were obtained. Clinical History: Pain Findings: No acute fracture or dislocation is seen. Osseous alignment is anatomic. Ankle mortise and other visualized joint spaces are preserved. Soft tissues are otherwise unremarkable. Impression: Unremarkable left ankle. Reviewed, dictated and finalized at location . Impression: Unremarkable left ankle.
--- NOTE | ~2025-01-04 | XR_ITS ---
Left foot Technique: AP, oblique, and lateral views were obtained. Clinical History: Pain Findings: No acute fracture or dislocation is seen. Osseous alignment is anatomic. Joint spaces are p reserved without erosive or degenerative change. Small plantar calcaneal spur present. Soft tissues a re unremarkable. Impression: Small plantar calcaneal spur. Reviewed, dictated and finalized at location . Impression: Small plantar calcaneal spur.
--- OUTSIDE RECORDS SUMMARY | 2025-01-04 13:18 | XMS_ITS | Data Portability ---
Author Organization [facility], Main Office Address [address] [place] [address] Care Team Providers Care Tmd Teacher Name Role Phone DELORIS CHOE Primary Care Provider [phone] DELORIS CHOE Referring Provider [phone] NEHAL ROSE Cranberry Bog Supervisor [phone] Assessment Encounter Date Assessment Date Assessment LastModified by Organization Details LastModified Time 12/07/2023 12/07/2023 53 yo F with - CHRONIC HEADACHE, improved - DM II - HYPOTHYROIDISM - CHRONIC LOW BACK PAIN - PSORIATIC ARTHRITIS - FIBROMYALGIA - VIT D DEFICIENCY - DEPRESSION - ANXIETY - PTSD - CROHN'S DISEASE - OSTEOPOROSIS - B/L HEARING LOSS, chronic - OBESITY I HbA1c: 6.5(07/21/23) MRI brain + stem w/wo: 08/05/23. Annual labs: 07/21/23. Wt: 190(12/07/23) D/w pt about her findings, recent labs & imagines and further plan of care. Advised pt to f/u with her Endo about her TSH result. All meds verified with pt. Meds as directed. F/u with Neuro as per schedule. Cont f/u with GI at [facility] as per schedule. Cont f/u with Rheumat at [facility] as per schedule. Cont f/u with Fermenter Helper at [facility] as per schedule. Cont f/u with Endo at [place] as per schedule. Cont f/u with Psych at [place] as per schedule. Cont f/u with Pain clinic at [place] as per schedule. Cont f/u with Ophtho as per schedule. Cont f/u with ENT as per schedule. Educated pt about alarming symptoms to monitor at home. HM: WWE - 11/09, normal as per pt. Cont f/u with Gyne as per schedule. Mammo - 07/28/23, normal. DEXA - 12/18/21, Osteoporosis ++. Pt sees Endo for this. Colonoscopy - 03/10, normal as per pt. Cont f/u with GI as per schedule. Flu - Pt declined. Tdap - 01/04. Shingrix - Pt pharmacy/HD. F/u in 2 months. Annual labs in 07/14. [email or web address] Not available 12/07/2023 12:49:17 02/09/2024 02/09/2024 53 yo F with - CHRONIC HEADACHE, improved - DM II - HYPOTHYROIDISM - CHRONIC LOW BACK PAIN - PSORIATIC ARTHRITIS - FIBROMYALGIA - VIT D DEFICIENCY - DEPRESSION - ANXIETY - PTSD - CROHN'S DISEASE - OSTEOPOROSIS - B/L HEARING LOSS, chronic - OBESITY I HbA1c: 6.5(07/21/23) MRI brain + stem w/wo: 08/05/23. Annual labs: 07/21/23. Wt: 190(12/07/23) - 187(02/09/24) [Pt stopped] D/w pt about her findings, recent labs & imagines and further plan of care. Advised pt to f/u with her Endo about her TSH result. All meds verified with pt. Meds as directed. F/u with Neuro as per schedule. Cont f/u with GI at [facility] as per schedule. Cont f/u with Rheumat at [facility] as per schedule. Cont f/u with Fermenter Helper at [facility] as per schedule. Cont f/u with Endo at [place] as per schedule. Cont f/u with Psych at [place] as per schedule. Cont f/u with Pain clinic at [place] as per schedule. Cont f/u with Ophtho as per schedule. Cont f/u with ENT as per schedule. Educated pt about alarming symptoms to monitor at home. HM: WWE - 11/09, normal as per pt. Cont f/u with Gyne as per schedule. Mammo - 07/28/23, normal. DEXA - 12/18/21, Osteoporosis ++. Pt sees Endo for this. Colonoscopy - 03/10, normal as per pt. Cont f/u with GI as per schedule. Flu - Pt declined. Tdap - 01/04. Shingrix - Pt pharmacy/HD. F/u in 3-4 months. Annual labs in 07/14. [email or web address] Not available 02/09/2024 15:07:12 05/02/2024 05/02/2024 54 yo F with - CHRONIC HEADACHE, improved - DM II - HYPOTHYROIDISM - CHRONIC LOW BACK PAIN - PSORIATIC ARTHRITIS - FIBROMYALGIA - VIT D DEFICIENCY - DEPRESSION - ANXIETY - PTSD - CROHN'S DISEASE - OSTEOPOROSIS/OSTE OPENIA - B/L HEARING LOSS, chronic - OBESITY I HbA1c: 6.5(07/21/23) MRI brain + stem w/wo: 08/05/23. Annual labs: 07/21/23. Wt: 190(12/07/23) - 187(02/09/24) [Pt stopped] D/w pt about her findings, recent labs & imagines and further plan of care. Advised pt to f/u with her Endo about her TSH result. All meds verified with pt. Meds as directed. F/u with Neuro as per schedule. Cont f/u with GI at [facility] as per schedule. Cont f/u with Rheumat at [facility] as per schedule. Cont f/u with Fermenter Helper at [facility] as per schedule. Cont f/u with Endo at [place] as per schedule. Cont f/u with Psych at [place] as per schedule. Cont f/u with Pain clinic at [place] as per schedule. Cont f/u with Ophtho as per schedule. Cont f/u with ENT as per schedule. Educated pt about alarming symptoms to monitor at home. HM: WWE - 11/09, normal as per pt. Cont f/u with Gyne as per schedule. Mammo - 07/28/23, normal. DEXA - 04/04/24, osteopenia ++. Pt sees Endo for this. Colonoscopy - 03/10, normal as per pt. Cont f/u with GI as per schedule. Flu - Pt declined. Tdap - 01/04. Shingrix - Pt pharmacy/HD. F/u in 3 months. Annual labs in 07/14. [email or web address] Not available 05/02/2024 13:06:24 07/18/2024 07/18/2024 54 yo F with - WELL ADULT VISIT - CENTRAL CHEST PRESSURE - GAIT IMBALANCE, chronic - CHRONIC HEADACHE, improved - DM II - HYPOTHYROIDISM - CHRONIC LOW BACK PAIN - PSORIATIC ARTHRITIS - FIBROMYALGIA - VIT D DEFICIENCY - DEPRESSION - ANXIETY - PTSD - CROHN'S DISEASE - OSTEOPOROSIS/OSTE OPENIA - B/L HEARING LOSS, chronic - OBESITY I HbA1c: 6.5(07/21/23) MRI brain + stem w/wo: 08/05/23. Annual labs: 07/21/23. Wt: 190(12/07/23) - 187(02/09/24) [Pt stopped] D/w pt about her findings, recent labs & imagines and further plan of care. Explained about different options for her. Will do routine labs. Will refer pt to Neuro again and Cardio. Advised pt to f/u with her Endo about her TSH result. All meds verified with pt. Meds as directed. Risks Vs benefits of Aspirin 81mg po daily with food explained. Pt agreed. F/u with Cardio as per schedule. F/u with Neuro as per schedule. Cont f/u with GI at [facility] as per schedule. Cont f/u with Rheumat at [facility] as per schedule. Cont f/u with Fermenter Helper at [facility] as per schedule. Cont f/u with Endo at [place] as per schedule. Cont f/u with Psych at [place] as per schedule. Cont f/u with Pain clinic at [place] as per schedule. Cont f/u with Ophtho as per schedule. Cont f/u with ENT as per schedule. Educated pt about alarming symptoms to monitor at home and get checked in ED in that case. HM: WWE - 11/09, normal as per pt. Cont f/u with Gyne as per schedule. Mammo - 07/28/23, normal. Pt gets from her Gyne. DEXA - 04/04/24, osteopenia ++. Pt sees Endo for this. Colonoscopy - 03/10, normal as per pt. Cont f/u with GI as per schedule. Flu - Pt declined. Tdap - 01/04. Shingrix - Pt pharmacy/HD. F/u in 2-3 weeks. Annual labs in 07/15. Not available 07/18/2024 13:06:42 Plan of Treatment Reminders Order Date Submit Date Provider Last Modified By Organization Details Last Modified Time Details Appointments Any 15 2024 02:45P Michelle Roca MD Not available Not available Not available Lab uric acid, serum or plasma 2024 025 IGNACIA [facility], [address], [place], [address], 12/28/2024 07:14:48 CBC w/ auto diff 2024 025 IGNACIA [facility], [address], [address], [place], [address], 12/28/2024 07:14:49 vitamin D, 25-hydrox y, total, serum 2024 025 [email or web address] [facility], [address], [address], [place], [address], 08/02/2024 16:00:02 vitamin B12 + folate, serum or blood 2024 025 [email or web address] [facility], [address], [place], [address], 08/02/2024 16:00:01 magnesium , serum or plasma 2024 025 [email or web address] [facility], [address], [address], [place], [address], 08/02/2024 16:00:02 CBC w/ auto diff 2024 025 [email or web address] [facility], [address], [place], [address], 08/02/2024 16:00:00 CMP, serum or plasma 2024 025 [facility], [address], [address], [place], [address], 08/02/2024 16:00:00 lipid panel, serum 2024 025 [email or web address] [facility], [address], [address], [place], [address], 08/02/2024 16:00:00 TSH, serum, reflex free T4 2024 025 [email or web address] [id number] [facility], [address], [address], [place], [address], 08/02/2024 16:00:01 urinalysi s complete, reflex culture 2024 025 [email or web address] [address] [facility], [address], [address], [place], [address], 08/02/2024 16:00:01 HbA1c (hemoglob in A1c), blood 2024 025 [email or web address] [address] [facility], [address], [address], [place], [address], 08/02/2024 16:00:01 microalbu min, urine 2024 025 [email or web address] [address] [facility], [address], [address], [place], [address], 08/02/2024 16:00:[address] referral - Chronic gait imbalance , chronic headaches . Please call patient to schedule an appointme nt Thank you. 2024 025 [email or web address] Gatito Gallegos MD, [address], [place], [address], 12/10/2024 11:52:58 cardiolog ist referral - Please call patient to schedule an appointme nt at [place] location. Thank you. 2024 025 [email or web address] Donald [facility] r, [address] [facility], [facility] [address], [place], [address], 12/10/2024 11:53:20 Procedures None recorded. Surgeries None recorded. Imaging XR, ankle + foot - heal pain/ankl e pain [email or web address] [place] [address] Center, [address] [facility] [address], [place], [address], 12/26/2024 12:46:05 Medication Orders tramadol 50 mg tablet 2024 025 [email or web address] [id number], [address] [facility], [place], [place], [id number], 12/26/2024 12:43:12 propranol ol 40 mg tablet 2024 025 [facility], [address] [place] [address], [address], 07/18/2024 12:51:52 pantopraz ole 40 mg tablet,de layed release 2024 025 [facility], [address] [place] [address], [address], 07/18/2024 12:51:51 Mounjaro 15 mg/0.5 mL subcutane ous pen injector 2024 025 [facility], [address] [place] [address], [address], 07/18/2024 12:52:17 Jasper Thyroid 180 mg tablet 2024 025 [facility], [address] [place] [address], [address], 07/18/2024 12:51:51 propranol ol 40 mg tablet 2023 024 [facility], [address] [place] [address], [address], 05/02/2024 13:00:41 pantopraz ole 40 mg tablet,de layed release 2023 024 [facility], [address] [place] [address], [address], 05/02/2024 13:00:43 Mounjaro 15 mg/0.5 mL subcutane ous pen injector 2023 024 [facility], [address] [place] [address], [address], 05/02/2024 13:00:42 Jasper Thyroid 180 mg tablet 2023 024 [facility], [address] [place] [address], [address], 05/02/2024 13:00:41 propranol ol 40 mg tablet 2023 024 [email or web address] [facility], [address] [place] [address], [address], 02/09/2024 14:57:34 pantopraz ole 40 mg tablet,de layed release 2023 024 [facility], [address] [place] [address], [address], 02/09/2024 15:08:41 Mounjaro 15 mg/0.5 mL subcutane ous pen injector 2023 024 [facility], [address] [place] [address], [address], 02/09/2024 14:57:19 Jasper Thyroid 180 mg tablet 2023 024 [facility], [address] [place] [address], [address], 02/09/2024 14:58:25 phentermi ne 15 mg capsule 2023 024 [email or web address] [id number], [address] [facility], [place], [place], [id number], 05/02/2024 12:53:56 propranol ol 40 mg tablet 2023 024 [facility], [address] [place], [address], 12/07/2023 12:42:07 Mounjaro 12.5 mg/0.5 mL subcutane ous pen injector 2023 024 [facility], [address] [place], [address], 02/09/2024 15:07:26 Patient TargetsNo targets recorded. Patient Instructions Encounter Date Encounter Id Patient Instructions Last Modified By Organization Details Last Modified Time 12/07/2023 [id number] starting a weigh t loss plan: care instructions [email or web address] Not available 12/07/2023 12:42:02 02/09/2024 [id number] starting a weigh t loss plan: care instructions [email or web address] Not available 02/09/2024 14:57:16 05/02/2024 [id number] starting a weigh t loss plan: care instructions [email or web address] Not available 05/02/2024 13:00:38 07/18/2024 [id number] starting a weigh t loss plan: care instructions [email or web address] Not available 07/18/2024 12:51:49 Reason for Referral Neurologist Referral for Imp airment of balance Chronic gait imbalance, chronic headaches. Please call patient to schedule an appointment Thank you. 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 Thank you. Referring Physician: Ehsan R[facility], Encounter Date: 07/18/2024 Results Created Date Observation Date Name Description Value Unit Range Abnormal Flag Note LastModifiedBy Organization Detail LastModifiedTime 12/28/1912/28/2024 URIC ACID uric acid 2.6 mg/dL 2.5-7. 0 normal Thera peuti c targe t for gout patie nts: <6.0 mg/dL Not Available [facility] [address] [place], [address], 12/28/2024 07:14:48 12/28/1912/28/2024 CBC (INCL UDES DIFF/ PLT) white blood cell count 9.1 thous and/u L 3.8-10 .8 normal Not Available [address], [address], 12/28/2024 07:14:49 12/28/1912/28/2024 CBC (INCL UDES DIFF/ PLT) red blood cell count 5.41 guillermina on/uL 3.80-5 .10 high Not Available [address], [address], 12/28/2024 07:14:49 12/28/1912/28/2024 CBC (INCL UDES DIFF/ PLT) hemoglobin 14.8 g/dL 11.7-1 5.5 normal Not Available [address], [address], 12/28/2024 07:14:49 12/28/1912/28/2024 CBC (INCL UDES DIFF/ PLT) hematocrit 46.9 % 35.0-4 5.0 high Not Available [address], [address], 12/28/2024 07:14:49 12/28/1912/28/2024 CBC (INCL UDES DIFF/ PLT) MCV 86.7 fL 80.0-1 00.0 normal Not Available [address], [address], 12/28/2024 07:14:49 12/28/1912/28/2024 CBC (INCL UDES DIFF/ PLT) MCH 27.4 pg 27.0-3 3.0 normal Not Available [address], [address], 12/28/2024 07:14:49 12/28/1912/28/2024 CBC (INCL UDES DIFF/ PLT) MCHC 31.6 g/dL 32.0-3 6.0 low For adult s, a sligh t decre ase in the calcu lated MCHC value (in the range of 30 to 32 g/dL) is most likel y not clini katharina signi ficpérez t; alexandriaev er, it shoul d be inter prete d with cauti on in corre latio n with other red cell eagle eters and the patie nt's clini belkis condi tion. Not Available [facility] [address], [address], 12/28/2024 07:14:49 12/28/1912/28/2024 CBC (INCL UDES DIFF/ PLT) RDW 13.1 % 11.0-1 5.0 normal Not Available [facility] [address], [address], 12/28/2024 07:14:49 12/28/1912/28/2024 CBC (INCL UDES DIFF/ PLT) platelet count 248 thous and/u L 140-40 0 normal Not Available [facility] [address], [address], 12/28/2024 07:14:49 12/28/1912/28/2024 CBC (INCL UDES DIFF/ PLT) MPV 10.5 fL 7.5-12 .5 normal Not Available [address], [address], 12/28/2024 07:14:49 12/28/1912/28/2024 CBC (INCL UDES DIFF/ PLT) absolute neutrophils 5305 cells /uL 1500-7 800 normal Not Available [facility] [address], [address], 12/28/2024 07:14:49 12/28/1912/28/2024 CBC (INCL UDES DIFF/ PLT) absolute lymphocytes 2839 cells /uL 850-39 00 normal Not Available [address], [address], 12/28/2024 07:14:49 12/28/19 25 12/28/2024 CBC (INCL UDES DIFF/ PLT) absolute monocytes 855 cells /uL 200-95 0 normal Not Available [address], [address], 12/28/2024 07:14:49 12/28/19 25 12/28/2024 CBC (INCL UDES DIFF/ PLT) absolute eosinophils 73 cells /uL 15-500 normal Not Available [address], [address], 12/28/2024 07:14:49 12/28/1912/28/2024 CBC (INCL UDES DIFF/ PLT) absolute basophils 27 cells /uL 0-200 normal Not Available [address], [address], 12/28/2024 07:14:49 12/28/1912/28/2024 CBC (INCL UDES DIFF/ PLT) neutrophils 58.3 % normal Not Available [address], [address], 12/28/2024 07:14:49 12/28/1912/28/2024 CBC (INCL UDES DIFF/ PLT) lymphocytes 31.2 % normal Not Available [address], [address], 12/28/2024 07:14:49 12/28/1912/28/2024 CBC (INCL UDES DIFF/ PLT) monocytes 9.4 % normal Not Available [address], [address], 12/28/2024 07:14:49 12/28/19 25 12/28/2024 CBC (INCL UDES DIFF/ PLT) eosinophils 0.8 % normal Not Available [facility] [address], [place], [address], 12/28/2024 07:14:49 12/28/19 25 12/28/2024 CBC (INCL UDES DIFF/ PLT) basophils 0.3 % normal Not Available [facility] [address], [place], [address], 12/28/2024 07:14:49 04/05/20 24 04/04/2024 DEXA No observ ation record ed. [email or web address] [facility] [address], [place], [address], 05/02/2024 12:57:11 Result Notes None recorded. Problems Name Problem SNOMED Code Status Onset Date Resolution Date Notes Provider Name and Address Organization Details Recorded Time Smooth muscle spasm 457743324 Active Not Available [facility] 3 07:32:33 Constipati on 15681209 Active Not Available [facility] 3 07:32:33 Acquired trigger finger 4149205 Active Not Available [facility] 3 07:32:33 Liver enzymes outside reference range 015734500 Active Not Available [facility] 3 07:32:33 Cirrhosis of liver 97570619 Active Not Available [facility] 3 07:32:34 Gastroesop hageal reflux disease 610019802 Active Not Available [facility] 3 07:32:34 Type 2 diabetes mellitus without complicati on 750338680 Active Not Available [facility] 3 07:32:35 Vitamin D deficiency 29625050 Active Not Available [facility] 3 07:32:36 Depressive disorder 07767446 Active Not Available [facility] 3 07:32:36 Sinusitis 70919833 Active Not Available [facility] 3 07:32:36 Migraine 67281217 Active Not Available [facility] 3 07:32:37 Pharyngiti s 802862617 Active Not Available [facility] 3 07:32:37 Hypothyroi dism 37915221 Active Not Available [facility] 3 07:32:37 Mixed urinary incontinen ce 524496895 Active Not Available [facility] 3 07:32:37 Obesity 644203405 Active Not Available [facility] 3 07:32:38 Disorder of lumbar disc 729312125 Active Not Available [facility] 3 07:32:38 Hyperlipid emia 62523414 Active Not Available [facility] 3 07:32:39 Strain of thoracic region 67823978 Active Not Available [facility] 3 07:32:40 Hemorrhoid s 73006032 Active Not Available [facility] 3 07:32:40 Sleep apnea 29853023 Active Not Available [facility] 3 07:32:40 Fatigue 81021071 Active Not Available [facility] 3 07:32:42 Psoriasis 2238115 Active Not Available [facility] 3 07:32:42 Low back pain 850652526 Active 2016 Not Available [facility] 3 07:32:35 Spinal stenosis in cervical region 00236474 Active 2016 Not Available [facility] 3 07:32:41 Elevated blood-pres sure reading without diagnosis of hypertensi on 584668106 Active 2016 Not Available [facility] 3 07:32:37 Obese 949464349 Active 2016 Not Available [facility] 3 07:32:37 Finger joint locking 690388765 Active 2016 Not Available [facility] 3 07:32:35 Tachycardi a 1438029 Active 2016 Not Available [facility] 3 07:32:36 Sprain of right ankle 0264641045412 9105 Active 2016 Not Available [facility] 3 07:32:33 Shoulder joint pain 326312317 Active 2016 Not Available [facility] 3 07:32:34 Pain of shoulder region 01817978 Active 2016 Not Available [facility] 3 07:32:38 Neck pain 29634474 Active 2017 Not Available [facility] 3 07:32:41 Right sided abdominal pain 078732255 Active 2017 Not Available [facility] 3 07:32:35 Hearing loss 86630007 Active 2018 Not Available [facility] 3 07:32:33 History of cervical spine fusion 6960382448132 Active 2018 Not Available [facility] 3 07:32:33 Non-alcoho lic fatty liver 991782926 Active 2018 Not Available [facility] 3 07:32:34 Flushing 244154254 Active 2018 Not Available [facility] 3 07:32:34 Carpal tunnel syndrome 87452377 Active 2018 Not Available [facility] 3 07:32:39 Pain in cervical spine 578457171 Active 2019 Not Available [facility] 3 07:32:35 Thoracic back pain 644314054 Active 2019 Not Available [facility] 3 07:32:35 Fibromyalg ia 518406785 Active 2020 Not Available [facility] 3 07:32:34 Impaired mobility 89220782 Active 2020 Not Available [facility] 3 07:32:41 Lichen sclerosus 847788453 Active 2020 dalla emily Not Available [facility] 3 07:32:42 Tendinitis of right shoulder 8542344516966 101 Active 2020 Not Available [facility] 3 07:32:32 Crohn's disease 34971789 Active 2020 Not Available [facility] 3 07:32:36 Pain of left knee joint 5673752082730 07 Active 2020 Not Available [facility] 3 07:32:38 Postmenopa usal state 90230269 Active 2021 Not Available [facility] 3 07:32:41 Osteopenia 658743633 Active 2021 Not Available [facility] 3 07:32:35 Bronchitis 03506577 Active 2021 Not Available [facility] 3 07:32:36 Cough 01577208 Active 2021 Not Available [facility] 3 07:32:39 Disorder of shoulder 609387521 Active 2021 Not Available [facility] 3 07:32:33 Osteoporos is 24527918 Active 2021 Not Available [facility] 3 07:32:40 Pain of right shoulder joint 4877443114972 9100 Active 2021 Not Available [facility] 3 07:32:33 Uveitis 892363480 Active 2021 Not Available [facility] 3 07:32:33 Hyperchole sterolemia 05115369 Active 2021 Not Available [facility] 3 07:32:33 Metabolic syndrome X 824818216 Active 2021 Not Available [facility] 3 07:32:34 Binge eating disorder 793720582 Active 2021 Not Available [facility] 3 07:32:38 Pain of hip region 37365411 Active 2021 Not Available [facility] 3 07:32:39 Cellulitis of lower limb 165373638 Active 2022 Deloris Choe NP [address], [place], [address] , [employer] [facility] [employer] [facility] 3 11:49:50 Psoriatic arthritis 972027452 Active 2023 Ehsan Roca MD [address], [address], [place], [address] , [employer] [facility] [employer] [facility] 4 12:13:02 Anxiety disorder 856889118 Active 2023 Ehsan Roca MD [address], [address], [place], [address] , [employer] [facility] [employer] [facility] 4 12:13:47 Chronic low back pain 744541975 Active 2023 Ehsan Roca MD [address], [place], [address] , [employer] 4 12:15:24 Chronic headache disorder 861258187 Active 2023 Ehsan Roca MD [address], [place], [address] , [employer] 4 12:17:58 Bilateral hearing loss 10693197 Active 2023 Ehsan Roca MD [address], [place], [address] , [employer] 4 12:27:14 Chronic post-traum atic stress disorder 807456675 Active 2023 Ehsan Roca MD [address], [place], [address] , [employer] 4 12:42:18 Gastroesop hageal reflux disease without esophagiti s 971787654 Active 2023 Ehsan Roca MD [address], [place], [address] , [employer] 4 12:57:22 Impairment of balance 381776730 Active 2024 Ehsan Roca MD [address], [place], [address] , [employer] 5 12:55:38 Angina pectoris 458288514 Active 2024 Ehsan Roca MD [address], [place], [address] , [employer] 5 12:56:49 Acute ankle pain 9843980502508 5 Active 2024 Elva Okeefe NP [address], [address], [place], [address] , [employer] 5 12:28:22 Problem Notes None recorded. Procedures Surgical History Date Name Laterality Status Provider Name and Address Organization Details Recorded Time 12/19/19 22 Most Recent Bone Density completed Not Available Formerly [facility], [facility] 08/18/2022 07:27:44 06/20/19 21 Date of Last Colonoscopy completed Not Available [facility], [facility] 08/18/2022 07:27:43 Imaging Results None recorded. Procedure Notes None recorded. Medical Equipment None Reported. Allergies Allergen ID Allergen Name Allergen Category Reaction Reaction Severity Criticality Documentation Date Start Date Code Code System Note Provider Name and Address Organization Details Recorded Time 55355 Tequin medicatio n diarrhea severe Not available 08/18/2022 51761 4 RxNorm Not Available [facility], [facility] 3 07:38:19 79007 Levaquin medicatio n rash Not available Not available 08/18/2022 41568 2 RxNorm Not Available Former[facility], [facility] 3 07:38:19 43768 Cipro medicatio n Not available Not available Not available 08/18/2022 74908 3 RxNorm Not Available [facility], [facility] 3 07:38:19 14418 Ativan medicatio n anaphylax is severe Not available 08/18/202235485 9 RxNorm After liver biops y was given ativa n and breat alaina cease d. Not Available [facility], [facility] 3 07:38:19 Medications Name Sig Start Date Stop Date Status Note LastModified by Organization Details LastModified Time Prescript ion - Prior Authoriza tion Request 02/08 completed Not Available Not Available Not Available acetamino phen 325 mg tablet 01/14 completed Not Available Not Available Not Available prednison e 10 mg tablet TAKE 1 TABLET BY MOUTH EVERY DAY DIRECTED FOR 10 DAYS 01/14 completed Not Available Not Available Not Available doxycycli ne hyclate 100 mg capsule Take 1 capsule twice a day by oral route for 10 days. 05/30 completed Not Available Not Available Not Available naproxen 375 mg tablet Take 1 tablet twice a day by oral route as needed. active Not Available Not Available No t Available polyethyl contreras glycol 3350 17 gram oral powder packet 08/13 completed Not Available Not Available Not Available cetirizin e 10 mg tablet active Not Available Not Available Not Available clarithro mycin 250 mg tablet 05/30 completed Not Available Not Available Not Available oxybutyni n chloride ER 10 mg tablet,ex tended release 24 hr 1 tab po daily active Not Available Not Available No t Available azithromy wilmar 250 mg tablet 01/04 completed Not Available Not Available Not Available Jasper Thyroid 180 mg tablet TAKE 1 TABLET DAILY 2024 active Not Available Not Available Not Avai lable tizanidin e 4 mg tablet Take 1 tablet every 6 hours by oral route as needed. active Not Available Not Available No t Available benzonata te 200 mg capsule Take 1 capsule every 8 hours by oral route as needed for 7 days. active Not Available Not Available No t Available valacyclo vir 1 gram tablet 01/14 completed Not Available Not Available Not Available hydrocodo ne 5 mg-acetam inophen 325 mg tablet TAKE 1 TABLET BY MOUTH EVERY 6 HOURS NEEDED FOR PAIN 01/14 completed Not Available Not Available Not Available prednison e 20 mg tablet active Not Available Not Available Not Available alendrona te 70 mg tablet Take 1 tablet every week by oral route. 01/14 completed changed to infusion . Not Available Not Available Not Available Beulah Thyroid 120 mg tablet TAKE 1 TABLET DAILY (DUE FOR FOLLOW UP IN OFFICE BEFORE FILLED AGAIN) active Not Available Not Available No t Available clobetaso l 0.05 % topical cream APPLY TO THE AFFECTED AREA TWICE DAILY NEEDED 07/18 completed Not Available Not Available Not Available phentermi ne 15 mg capsule TAKE 1 CAPSULE BY MOUTH EVERY DAY IN THE MORNING 05/02 completed Not Available Not Available Not Available metronida zole 500 mg tablet 02/27 completed Not Available Not Available Not Available acetamino phen 300 mg-codein e 30 mg tablet 05/30 completed Not Available Not Available Not Available Detrol LA 4 mg capsule,e xtended release Take 1 capsule every day by oral route as directed . 2012 active Not Available Not Available Not Avai lable valacyclo vir 500 mg tablet active Not Available Not Available No t Available hydrocodo ne 10 mg-acetam inophen 325 mg tablet Take 1 tablet every 6 hours by oral route. active PRN Not Available Not Available No t Available tramadol 50 mg tablet Take 1 tablet every 12 hours by oral route for 6 days. 2024 active Not Available Not Available Not Avai lable baclofen 20 mg tablet TAKE 1 TABLET TWICE A DAY NEEDED. active Not Available Not Available No t Available oxycodone -acetamin ophen 5 mg-325 mg tablet TAKE 1 TABLET BY MOUTH EVERY 6 HOURS NEEDED FOR PAIN active Not Available Not Available No t Available propranol ol 40 mg tablet Take 1 tablet every day by oral route as directed for 90 days. active Not Available Not Available No t Available alprazola m 0.25 mg tablet 02/08 completed Not Available Not Available Not Available famotidin e 20 mg tablet TAKE 1 TABLET DAILY 05/02 completed Not Available Not Available Not Available prednisol one acetate 1 % eye drops,carolyn pension SHAKE LIQUID AND INSTILL 1 DROP IN RIGHT EYE FOUR TIMES DAILY 07/18 completed Not Available Not Available Not Available OneTouch Ultra Test strips USE 1 STRIP EVERY DAY active Not Available Not Available No t Available colesevel am 625 mg tablet TAKE 3 TABLETS Once daily 01/14 completed Not Available Not Available Not Available hydrocodo ne 7.5 mg-acetam inophen 325 mg tablet Take 1 tablet every 12 hours by oral route as needed. active Not Available Not Available No t Available cephalexi n 500 mg capsule TAKE 1 CAPSULE BY MOUTH EVERY 6 HOURS 07/18 completed Not Available Not Available Not Available pantopraz ole 40 mg tablet,de layed release Take 1 tab po QAM before breakfas t. active Not Available Not Available No t Available tobramyci n 0.3 % eye drops INSTILL 1 DROP INTO BOTH EYES FOUR TIMES DAILY FOR 7 DAYS 03/11 completed Not Available Not Available Not Available ranitidin e 150 mg tablet active Not Available Not Available Not Available clotrimaz ole-betam ethasone 1 %-0.05 % topical cream APPLY TO THE AFFECTED AREA THREE TIMES DAILY 01/14 completed Not Available Not Available Not Available polymyxin B sulfate 10,000 unit-trim ethoprim 1 mg/mL eye drops INSTILL 1 DROP IN BOTH EYES FOUR TIMES DAILY FOR 7 DAYS 03/11 completed Not Available Not Available Not Available nystatin- triamcino lone 100,000 unit/g-0. 1 % topical cream APPLY TO THE AFFECTED AREA(S) BY TOPICAL ROUTE 2 TIMES PER DAY IN THEMORNI NG AND EVENING active Use to affected areas, bid for next 1-2 weeks. Not Available Not Available Not Available docusate sodium 100 mg capsule 01/14 completed Not Available Not Available Not Available oxybutyni n chloride ER 5 mg tablet,ex tended release 24 hr Take 1 tablet every day by oral route for 90 days. active Not Available Not Available No t Available gabapenti n 300 mg capsule TAKE 1 CAPSULE BY MOUTH EVERY NIGHT 11/30 completed Not Available Not Available Not Available mupirocin 2 % topical ointment 04/06 completed Not Available Not Available Not Available Detrol LA 2 mg capsule,e xtended release active Not Available Not Available Not Available ergocalci ferol (vitamin D2) 1,250 mcg (50,000 unit) capsule TAKE 1 CAPSULE ONCE WEEKLY 2024 active Not Available Not Available Not Avai lable clobetaso l 0.05 % topical ointment 04/06 completed Not Available Not Available Not Available cefuroxim e axetil 500 mg tablet Take 1 tablet every 12 hours by oral route for 10 days. active Not Available Not Available No t Available polyethyl contreras glycol 3350 17 gram/dose oral powder DISSOLVE 17 GRAMS IN LIQUID AND TAKE BY MOUTH ONCE DAILY 12/26 completed Not Available Not Available Not Available methylpre dnisolone 4 mg tablets in a dose pack FOLLOW PACKAGE DIRECTIO NS 01/14 completed Not Available Not Available Not Available oxybutyni n chloride 5 mg tablet take one tablet daily active Not Available Not Available No t Available clobetaso l 0.05 % scalp solution active Not Available Not Available Not Available cefdinir 300 mg capsule Take 1 capsule every 12 hours by oral route for 10 days. active Not Available Not Available No t Available metformin ER 500 mg tablet,ex tended release 24 hr Take 1 tablet every day by oral route with meals for 90 days. active Not Available Not Available No t Available calcipotr iene 0.005 % topical ointment 02/27 completed Not Available Not Available Not Available oxycodone 5 mg tablet TAKE 1 TABLET BY MOUTH EVERY 6 HOURS NEEDED FOR PAIN 05/02 completed Not Available Not Available Not Available magnesium 200 mg tablet Take 2 tablets every day by oral route. 02/27 completed Not Available Not Available Not Available Femring 0.05 mg/24 hr vaginal Insert 1 vaginal ring every 3 months by vaginal route as directed . 2012 active Not Available Not Available Not Avai lable Premarin 0.625 mg/gram vaginal cream 03/11 completed Not Available Not Available Not Available aripipraz ole 5 mg tablet TAKE 1 TABLET DAILY 11/27 completed Not Available Not Available Not Available rosuvasta tin 5 mg tablet 01/14 completed Not Available Not Available Not Available rosuvasta tin 40 mg tablet 1 tab po daily. active Not Available Not Available No t Available bupropion HCl XL 300 mg 24 hr tablet, extended release 1 tab po daily active Not Available Not Available No t Available bupropion HCl XL 150 mg 24 hr tablet, extended release 1 tab po daily active Not Available Not Available No t Available clobetaso l 0.05 % shampoo active Not Available Not Available Not Available magnesium 300 mg tablet Take 1 tablet twice a day by oral route. 2015 active Not Available Not Available Not Avai lable nitrofura ntoin monohydra te/macroc rystals 100 mg capsule active Not Available Not Available Not Available duloxetin e 30 mg capsule,d elayed release TAKE 1 CAPSULE BY MOUTH EVERY DAY FOR 7 DAYS 01/04 completed Not Available Not Available Not Available duloxetin e 60 mg capsule,d elayed release TAKE 1 CAPSULE DAILY active Not Available Not Available No t Available OneTouch UltraSoft Lancets Take 1 each every day by miscell. route for 90 days. 08/07 completed Not Available Not Available Not Available solifenac in 5 mg tablet TAKE 1 TABLET DAILY active Not Available Not Available No t Available fluocinol one 0.01 % scalp oil and shower cap active Not Available Not Available Not Available cod liver oil 01/14 completed Not Available Not Available Not Available milk thistle 2019 active Not Available Not Available Not Avai lable B Complex 1 po qd 02/27 completed Not Available Not Available Not Available zinc 30 mg once daily 2019 active Not Available Not Available Not Avai lable Hot Flashex 1 PO QD 12/03 completed HOT FLASH FORMULA Not Available Not Available Not Available WelChol 03/11 completed Not Available Not Available Not Available Cinnamon 2000 MG 2 CAP. DAILY 12/03 completed Not Available Not Available Not Available PreviDent 5000 Sensitive 1.1 %-5 % dental paste USE DIRECTED AT LEAST 2 TIMES A DAY active Not Available Not Available No t Available BD Ultra-Fin e Short Pen Needle 31 gauge x 11/02 completed Not Available Not Available Not Available ProAir HFA 90 mcg/actua tion aerosol inhaler Inhale by inhalati on route for 30 days. 11/29 completed Not Available Not Available Not Available [employer] UltraMini kit active Not Available Not Available Not Available calcium 600 mg (as carbonate )-vitamin D3 10 mcg (400 unit) tablet Take 1 tablet twice a day by oral route as directed for 90 days. active Not Available Not Available No t Available peg 3350-elec trolytes 236 gram-22.7 4 gram-6.74 gram-5.86 gram solution 03/11 completed Not Available Not Available Not Available zoledroni c acid 5 mg/100 mL in mannitol 5 %-water intraveno us piggybck 01/14 completed Not Available Not Available Not Available Divigel 0.5 mg/0.5 gram (0.1 %) transderm al gel packet 02/27 completed Not Available Not Available Not Available estradiol 1 mg/gram (0.1 %) transderm al gel packet Apply topicall y once daily. active Not Available Not Available No t Available Lantus Solostar U-100 Insulin 100 unit/mL (3 mL) subcutane ous pen INJ 60 UNI SC QPM 11/06 completed Not Available Not Available Not Available Humalog KwikPen (U-100) Insulin 100 unit/mL subcutane ous Inject 18 units by subcutan eous route before meals. 01/09 completed Not Available Not Available Not Available oxycodone 10 mg tablet 05/30 completed Not Available Not Available Not Available Fish Oil 360 mg-1,200 mg capsule 2 TABS DAILY 02/27 completed Not Available Not Available Not Available Onglyza 5 mg tablet TAKE 1 TABLET DAILY (NEEDS TO BE SEEN BEFORE NEXT REFILL) active Not Available Not Available No t Available estradiol 10 mcg vaginal tablet 11/06 completed Not Available Not Available Not Available Stelara 90 mg/mL subcutane ous syringe 12/26 completed Not Available Not Available Not Available Vitamin D3 125 mcg (5,000 unit) tablet 1 DAILY 02/27 completed Not Available Not Available Not Available Analpram Advanced 2.5 %-1 %/630 mg/1 %-1 % kit use one kit after every bowerl movement active Not Available Not Available No t Available Tradjenta 5 mg tablet TAKE 1 TABLET DAILY active Not Available Not Available No t Available Accu-Chek FastClix Lancing Device Take 1 each every day by miscell. route for 90 days. active Not Available Not Available No t Available mirabegro n ER 25 mg tablet,ex tended release 24 hr TAKE 1 TABLET DAILY active Not Available Not Available No t Available OneTouch Delica Lancets 30 gauge USE 1 LANCET DAILY 12/03 completed Not Available Not Available Not Available EpiPen 2-Hua 0.3 mg/0.3 mL injection , auto-inje ctor 04/06 completed Not Available Not Available Not Available icosapent ethyl 1 gram capsule active Not Available Not Available Not Available Invokana 100 mg tablet TAKE 1 TABLET DAILY active Not Available Not Available No t Available Osphena 60 mg tablet 11/07 completed Not Available Not Available Not Available Injectafe r 50 mg iron/mL intraveno us solution 11/07 completed Not Available Not Available Not Available dapaglifl ozin propanedi ol 10 mg tablet active Not Available Not Available Not Available Otezla 30 mg tablet Take 1 tablet twice a day by oral route. 2015 active PT RECEIVED STARTED PK FROM DR. ZULETA Not Available Not Available Not Available Bydureon 2 mg/0.65 mL subcutane ous pen injector active Not Available Not Available Not Available marijuana (cannabis ) [address] Hodge in [place], [place] Not Available Not Available Not Available Enstilar 0.005 %-0.064 % topical foam 11/27 completed Not Available Not Available Not Available Ozempic 1 mg/dose (2 mg/1.5 mL) subcutane ous pen injector 09/08 completed Not Available Not Available Not Available Ozempic 0.25 mg or 0.5 mg (2 mg/1.5 mL) subcutane ous pen injector active Not Available Not Available Not Available OneTouch Ultra2 Meter active Not Available Not Available Not Available OneTouch Delica Plus Lancet 33 gauge active Not Available Not Available Not Available OneTouch Delica Plus Lancing Device kit active Not Available Not Available Not Available ID NOW COVID-19 Test Kit TEST DIRECTED TODAY 01/04 completed Not Available Not Available Not Available Ozempic 1 mg/dose (4 mg/3 mL) subcutane ous pen injector INJECT 1 MG UNDER THE SKIN EVERY WEEK 08/08 completed Not Available Not Available Not Available Wegovy 2.4 mg/0.75 mL subcutane ous pen injector INJECT 2.4 MG EVERY WEEK BY SUBCUTAN EOUS ROUTE BEGINNIN G AFTER YOUR 1.7 MG DOSE 09/06 completed Not Available Not Available Not Available Wegovy 1.7 mg/0.75 mL subcutane ous pen injector INJECT 1.7 MG ONCE A WEEK SUBCUTAN EOUSLY active Not Available Not Available No t Available Ozempic 2 mg/dose (8 mg/3 mL) subcutane ous pen injector Inject 2 mg every week by subcutan eous route. 04/21 completed Not Available Not Available Not Available Mounjaro 15 mg/0.5 mL subcutane ous pen injector Inject 15 mg every week by subcutan eous route as directed for 90 days. 2024 active Not Available Not Available Not Avai lable Mounjaro 10 mg/0.5 mL subcutane ous pen injector INJECT 10 MG UNDER THE SKIN EVERY WEEK DIRECTED (DISCONT INUE OZEMPIC) 12/06 completed Not Available Not Available Not Available Mounjaro 12.5 mg/0.5 mL subcutane ous pen injector Inject 12.5 mg every week by subcutan eous route as directed for 90 days. 02/08 completed Not Available Not Available Not Available Skyrizi 360 mg/2.4 mL (150 mg/mL) subcutane ous wearable injector active Not Available Not Available Not Available Skyrizi 60 mg/mL intraveno us solution active Not Available Not Available Not Available Dexcom G7 Sensor device active Not Available Not Available Not Available Vitals Date Recorded Systolic And Diastolic Provider Name and Address Organization Details Last Updated DateTime 07/18/2024 140/86 mm[Hg] Michelle Oliver [address] [place] [address], [facility] [address], [place], [address], [facility] [employer] [facility] 07/18/2024 12:58:17 Date Recorded Body height Body mass index (BMI) Body weight Body temperature Oxygen saturation Oxygen saturation in Arterial blood by Pulse oximetry Heart rate Provider Name and Address Organization Details Last Updated DateTime 5 160.02 cm 31.6 kg/m2 08849.1 9 g 97 [degF] 98 % 98 % 80 /min Nyla Johnson RN [facility] [employer] [facility] 5 12:44:10 Date Recorded Body height Body mass index (BMI) Body weight Body temperature Respiratory rate Heart rate Oxygen saturation Oxygen saturation in Arterial blood by Pulse oximetry Systolic And Diastolic Provider Name and Address Organization Details Last Updated DateTime 4 160.02 cm 33.7 kg/m2 56967.9 g 98 [degF] 16 /min 84 /min 99 % 99 % 130/66 mm[Hg] Derik Wakefield [facility] [employer] 4 12:35:54 Date Recorded Body height Body mass index (BMI) Body weight Body temperature Heart rate Respiratory rate Oxygen saturation Oxygen saturation in Arterial blood by Pulse oximetry Systolic And Diastolic Provider Name and Address Organization Details Last Updated DateTime 5 160.02 cm 31.1 kg/m2 98613.4 6 g 97.5 [degF] 89 /min 20 /min 99 % 99 % 136/88 mm[Hg] Delrois Allen RN [facility] [employer] [facility] 5 12:17:43 Date Recorded Body height Body mass index (BMI) Body weight Body temperature Heart rate Respiratory rate Oxygen saturation Oxygen saturation in Arterial blood by Pulse oximetry Systolic And Diastolic Provider Name and Address Organization Details Last Updated DateTime 4 160.02 cm 33.1 kg/m2 33662.1 2 g 98 [degF] 78 /min 16 /min 99 % 99 % 136/70 mm[Hg] Derik Wakefield [facility] [employer] [facility] 14:51:28 Date Recorded Systolic And Diastolic Provider Name and Address Organization Details Last Updated DateTime 05/02/2024 140/80 mm[Hg] Michelle Oliver [address] [facility], [facility] [address], [place], [address], [facility] [employer] [facility] 05/02/2024 13:06:11 Date Recorded Body height Body mass index (BMI) Body weight Body temperature Heart rate Oxygen saturation Oxygen saturation in Arterial blood by Pulse oximetry Provider Name and Address Organization Details Last Updated DateTime 160.02 cm 32.5 kg/m2 64424.8 4 g 96.6 [degF] 80 /min 97 % 97 % Sayra Pereira RN [facility] [employer] [facility] 12:54:59 Social History Question Answer Notes LastModified by Organization Details LastModified Time Tobacco Smoking Status Former Smoker Quit in 2000 Nyla Johnson RN [facility], [facility] [employer] [facility] 07/18/2024 12:49:01 Do You Have An Advance Directive? No [id number] Information not available 08/18/2022 What Is Your Level Of Caffeine Consumption? Occasional 1 Cup Of Coffee In Morning (half Caffeine) [email or web address] Information not available 07/18/2024 How Much Tobacco Do You Chew? None [id number] Information not available 08/18/2022 In The 14 Days Before Symptom Onset, Have You Had Close Contact With A Laboratory-confi rmed COVID-19 While That Case Was Ill? No Information not available 07/18/2023 In The 14 Days Before Symptom Onset, Have You Had Close Contact With A Person Who Is Under Investigation For COVID-19 While That Person Was Ill? No Information not available 07/18/2023 What Type Of Diet Are You Following? DIABETIC [id number] Information not available 08/18/2022 Which Illicit Or Recreational Drugs Have You Used? Marijuana (medical) A Pinch At Night Information not available 07/18/2024 Have There Been Any Changes To Your Family Or Social Situation? No Information not available 07/18/2023 When Did You Quit Smoking? 16+yearssincelastc igarette [email or web address] Information not available 07/18/2024 How Many Years Have You Used Illicit Or Recreational Drugs? 3 [email or web address] Information not available 07/18/2024 Where Do You Live? SingleLevelHouse Information not available 07/18/2023 Do You Have A Medical Power Of Warp Drawer? No Information not available 07/18/2023 What Is Your Current Pack Years? 10-19packyears [email or web address] Information not available 07/18/2024 Do You Have Any Pets? Yes 1 Dog, 2 Cats, Parrot Information not available 07/18/2023 Do You Use Your Seat Belt Or Car Seat Routinely? Yes Information not available 07/18/2023 At What Age Did You Start Smoking Tobacco? 14 [email or web address] Information not available 07/18/2024 Are You Passively Exposed To Smoke? No Information not available 07/18/2023 Are There Any Smokers In Your House? No Information not available 07/18/2023 How Many Years Have You Smoked Tobacco? 17 [email or web address] Information not available 07/18/2024 Have You Recently Traveled Abroad? No Information not available 07/18/2023 Have You Used IV Drugs? No Information not available 07/18/2024 Sex: Female Functional Status Question Answer Note LastModified by Organizat ion Details LastModified Time Do you use any illicit or recreational drugs? Yes [email or web address] Information not available 07/18/2024 What is your level of alcohol consumption? None [id number] Information not available 08/18/2022 Do you or have you ever used smokeless tobacco? Never used smokeless tobacco [id number] Information not available 08/18/2022 Do you or have you ever used e-cigarettes or vape? Never used electronic cigarettes Information not available 07/18/2023 Mental Status None recorded. Family History Relationship Description Onset Age of this Age Resolved Age Notes LastModified by Organization Details LastModified Time Father Heart disease [id number] Not available 08/18/2022 07:27:48 Father Hypertensive disorder [id number] Not available 08/18/2022 07:27:48 Father Family history of stroke [email or web address] Not available 12/26 11:53:48 Mother Disorder of thyroid gland [email or web address] Not available 2024 12:50:20 Mother Depressive disorder [email or web address] Not available 2024 12:50:20 Mother Migraine Not availabl e 07/18/2024 12:50:20 Medical History Condition Response BLINDNESS N RHEUMATIC FEVER N KIDNEY STONES Y BLADDER PROBLEMS N MRSA N OTHER # 1 Y POLIO N LUNG DISEASE/DISORDER N HISTORY OF DRUG ABUSE N RADIATION / CHEMOTHERAPY N COPD Y Other # 2 N BLOOD DISEASES N SURGERY N EAR OR HEARING PROBLEMS N MUMPS N SHINGLES N BOWEL PROBLEMS Y FEMALE PROBLEMS / INFECTIONS Y DEPRESSION (INCLUDING POST ) N STROKE/TIA N THYROID DISEASE Y ULCERS Y BENIGN PROSTATIC HYPERPLASIA N MEASLES N CERVICALGIA N HYPOTENSION N TB SKIN TEST Y MYOCARDIAL INFARCTION N PARAPELGIA N OBESITY N ANEURYSM N URINARY/BLADDER/KIDNEY PROBLEMS Y CORONARY ARTERY DISEASE (CAD) N MENIERE'S DISEASE N ADDICTION CONCERNS N ENDOMETRIOSIS N USE OF BLOOD THINNERS N SKIN PROBLEMS Y EMPHYSEMA N GASTROINTESTINAL DISORDER Y PARATHYROID DISEASE N MUSCLE,JOINT OR BONE PROBLEMS Y GASTROINTESTINAL BLEEDING N BLOOD CLOTS N ASTHMA N CATARACTS N ERECTILE DYSFUNCTION N GI PROBLEMS Y CHF N Low Testosterone N NEUROPATHY Y INFERTILITY N AIDS/HIV N FRACTURES N CHEMOTHERAPY / RADIATION N VISION/EYE PROBLEMS N LIVER DISEASE Y MALE HYPOGONADISM N HYPERTENSION N TOURETTE'S N ANXIETY DISORDER Y BLOOD TRANSFUSION N ANEMIA/BLOOD DISORDER Y CHRONIC EAR INFECTIONS N BRONCHITIS N TUBERCULOSIS Y FOOT PROBLEM Y DIVERTICULITIS N CHICKENPOX Y SLEEP APNEA N ALLERGIES/HAYFEVER N INFECTIOUS DISEASE N HEART ARRHYTHMIA N PROSTATE N INSOMNIA N HIGH CHOLESTEROL / HYPERLIPIDEMIA Y HYPERTHYROIDISM N EYE PROBLEMS N EATING DISORDER N NEUROLOGICAL PROBLEMS N EDEMA N CHRONIC PAIN SYNDROME Y HYPOTHYROIDISM N CONSTIPATION N CAROTID BLOCKAGE N BACK / NECK PROBLEMS Y HAVE YOU BEEN HOSPITALIZED OR SEEN IN [facility] IN THE PAST YEAR ? N ATHEROSCLEROSIS N DIALYSIS N ECZEMA N HISTORY WITH COMPLICATIONS WITH ANESTHES IA ? N FIBROMYALGIA Y OSTEOPOROSIS Y ARTHRITIS Y NO SIGNIFICANT PAST MEDICAL HISTORY N APPENDICITIS N DIABETES, TYPE Y BAD TEETH N ENT N SEASONAL ALLERGIES N HEARTBURN / REFLUX N ADD/ADHD Y AUTISM SPECTRUM DISORDER (ASD) N HEPATITIS / LIVER DISEASE N PULMONARY DISEASE N GOUT N SLEEP DISORDER N ALZHEIMER'S DISEASE N PAIN Y HERPES N DEMENTIA N HEADACHES/MIGRAINES Y SEIZURES/EPILEPSY N VASCULAR DISEASE N PACEMAKER N DIZZINESS N HEART DISEASE/HEART PROBLEMS Y KIDNEY DISEASE N DEVELOPMENTAL OR BEHAVIORAL DISORDERS N MULTIPLE SCLEROSIS N SCARLET FEVER N MENTAL DISORDER/ILLNESS Y CARDIAC ARRHYTHMIA N CANCER: SPECIFY N ANESTHESIA COMPLICATIONS N PNEUMONIA N ATRIAL FIBRILLATION N Gall Stones N PULMONARY EMBOLISM N AUTOIMMUNE DISEASE Y Gynecological History Statement/Question Response If Post Menopausal, Age at Menopause 33 Date of Last Mammogram 01/04/2022 Date of Last Colonoscopy 06/20/2020 Most Recent Bone Density 12/18/2021 Date of LMP 06/20/2002 Menses Monthly N HPV Vaccine N Current Control Method None Y Obstetrics History GPAL:G 1 P 1 0 0 1 Type Value Full Term 1 Living 1 Total 1 Immunizations Vaccine Type Date Status Note Provider Nam e and Address Organization Details Recorded Time Tdap 07/05/2003 completed Not Available [facility] 08/18/2022 07:38:13 Influenza, split virus, quadrivalent, PF 03/30/2018 completed Not Available [facility] 07:38:13 Tdap 12/26/2017 completed Not Available [facility] 08/18/2022 07:38:13 Past Encounters Encounter ID Performer Location Encounter Start Date Encounter Closed Date Diagnosis/Indication Diagnosis SNOMED-CT Code Diagnosis ICD10 Code Diagnosis Note [id number] Ehsan Roca MD [address] [address] 09/02/2020 00:00:00 09/02/2020 17:25:49 [id number] Luis Carlton MD [facility] [address] [facility] [address] [place] [address] 09/10/2020 00:00:00 09/10/2020 15:05:57 [id number] Ehsan Roca MD [address] [address] 11/07/2020 00:00:00 11/07/2020 13:06:44 [id number] Ehsan Roca MD [address] [address] 12/19/2020 00:00:00 12/19/2020 14:37:12 [id number] Ehsan Roca MD [facility] [place] [address] [place] [address] 01/08/2021 00:00:00 01/08/2021 13:55:30 [id number] Shailesh Acharya MD [facility] [place] [address] [facility] [address] [place] [address] 01/09/2021 00:00:00 01/09/2021 16:22:05 [id number] Ehsan Roca MD [facility] [place] [address] [place] [address] 02/18/2021 00:00:00 02/18/2021 14:26:18 [id number] Ehsan Roca MD [facility] [place] [address] [place] [address] 03/27/2021 00:00:00 03/27/2021 18:06:56 [id number] Ehsan Roca MD [facility] [place] [address] [place] [address] 06/05/2021 00:00:00 06/05/2021 16:13:29 [id number] Ehsan Roca MD [facility] [place] [address] [place] [address] 07/14/2021 00:00:00 07/14/2021 16:57:16 [id number] Ehsan Roca MD [facility] [place] [address] [place] [address] 08/11/2021 00:00:00 08/11/2021 17:40:23 [id number] Ehsan Roca MD [facility] [place] [address] [place] [address] 08/20/2021 00:00:00 08/20/2021 12:38:17 [id number] Ehsan Roca MD [facility] [place] [address] [place] [address] 09/08/2021 00:00:00 09/08/2021 16:01:40 [id number] Ehsan Roca MD [facility] [place] [address] [facility] [place] [address] 11/06/2021 00:00:00 11/06/2021 15:46:49 [id number] Ehsan Roca MD [facility] [place] [address] [place] [address] 11/18/2021 00:00:00 11/18/2021 10:27:43 [id number] Shailesh Acharya MD [facility] [place] [address] [facility] [address] [place] [address] 11/30/2021 00:00:00 12/07/2021 13:37:45 [id number] Ehsan Roca MD [facility] [place] [address] [place] [address] 12/09/2021 00:00:00 12/09/2021 16:13:26 [id number] Shailesh Acharya MD [facility] [place] [address] [facility] [address] [place] [address] 01/04/2022 00:00:00 01/05/2022 22:37:24 [id number] Deloris Choe NP [facility] [place] [address] [place] [address] 01/12/2022 00:00:00 01/12/2022 10:34:02 [id number] Deloris Choe NP [facility] [place] [address] [place] [address] 03/11/2022 00:00:00 03/11/2022 12:15:47 [id number] Ehsan Roca MD [facility] [place] [address] [place] [address] 05/12/2022 00:00:00 05/12/2022 12:07:05 [id number] Deloris Choe NP [facility] [place] [address] [place] [address] 01/14/2023 11:18:50 01/14/2023 12:28:38 Psoriasis 5561009 L40.9 Clobetasol .StelaraNo current plaques. Postmenopausal state 764 30368 Z78.0 On hormone therapy from [facility]. Sleep apnea 34704927 G47 .30 CPAP at home. but not currently worn since left broken arm. Hyperlipidemia 16692242 E78.5 Colesevela m 625 mg 3 tablets once daily stopped.Ro suvastatin 40 mg po nightly.Dr Tobi Chan. Osteoporosis 62418750 M8 1.0 Alendronat e 70 mg po weekly stopped due to issues swallowing .Did get infusion. Binge eating disorder 43 4522565 F50.81 seeing [facility]. Obesity 831854471 E66.9 Diet and exercise encouraged . Hypothyroidism 86695664 E03.9 armour thyroid 180 mg po [place]in [place]. Migraine 53469472 G43.90 9 Migraine today in office. Vitamin D deficiency 347 45476 E55.9 Crohn's disease 84084300 K50.90 Type 2 jed betes mellitus without complication 292052307 E11.9 [facility]. Ozempic 1 mg inj weekly.Ros uvastatin 40 mg.Needs to be checking fasting daily.Last a1c in 5's. Thoracic back pain 04952 8004 M54.6 full spine pain at times. Hips flare. Today bad pain in sacrolumba r spine. Gastroesop hageal reflux disease 109241692 K21.00 Famotidine 20 mg and protonix. Non-alcoho lic fatty liver 915892746 K76.0 Pain of ri ght shoulder joint 6273341627 6101623 M25.511 off and on pains. Depressive disorder 3548 9007 F32.A Bupropion HCL XL 300 mg po dailyDulox etine 60 mg po daily.Viridiana Villa. Anemia screening 07 Z13.0 Low back pain 495997053 M54.50 daily pain. Some days can still get around but some days has to lay in bed. [id number] Deloris Choe NP [address] [address] 02/25/2023 11:21:04 02/25/2023 12:06:44 Seen in hospital outpatient department 978781098 Z76.89 [facility] records reviewed. Cellulitis of lower limb 463846385 L03.119 Finished all keflex. Resolved. [id number] Ehsan Roca MD [address] [address] 07/18/2023 11:54:31 07/18/2023 13:58:01 Adult health examination 971934917 Z00.00 Type 2 jed betes mellitus without complication 498529627 E11.9 Crohn's disease 94839492 K50.90 Psoriatic arthritis 1563 01680 L40.50 Depressive disorder 3548 9007 F32.A Anxiety disorder F41.9 Vitamin D deficiency 347 93380 E55.9 Chronic low back pain 27 8585766 M54.50 Osteoporosis 72976665 M8 1.0 Chronic he adache disorder 792556913 G44.89 Fibromyalgia 567945812 M 79.7 Obesity 155343872 E66.9 Bilateral hearing loss 32825315 H91.93 Screening mammography 24 870750 Z12.31 Chronic post-traumatic stress disorder 621492429 F43.12 [id number] Ehsan Roca MD [address] [address] 08/08/2023 11:48:16 08/08/2023 12:37:16 Type 2 diabetes mellitus without complication 291843486 E11.9 Crohn's disease 84389424 K50.90 Psoriatic arthritis 1563 23284 L40.50 Depressive disorder 3548 9007 F32.A Anxiety disorder 06 F41.9 Chronic post-traumatic stress disorder 624889237 F43.12 Vitamin D deficiency 347 27511 E55.9 Improved Chronic low back pain 27 8906778 M54.50 Osteoporosis 43960662 M8 1.0 Chronic he adache disorder 566469617 G44.89 Fibromyalgia 287435859 M 79.7 Obesity 005446776 E66.9 Bilateral hearing loss 13817672 H91.93 chronic [id number] Ehsan Roca MD [address] [address] 12/07/2023 12:26:22 12/07/2023 13:50:04 Chronic headache disorder 313447706 G44.89 Type 2 jed betes mellitus without complication 319283910 E11.9 Crohn's disease 58922625 K50.90 Psoriatic arthritis 1563 09548 L40.50 Depressive disorder 3548 9007 F32.A Anxiety disorder F41.9 Chronic post-traumatic stress disorder 210926864 F43.12 Vitamin D deficiency 347 51365 E55.9 Improved Chronic low back pain 27 8950980 M54.50 Osteoporosis 54984806 M8 1.0 Fibromyalgia 102800436 M 79.7 Obesity 578936542 E66.9 Bilateral hearing loss 59163655 H91.93 chronic [id number] Ehsan Roca MD [address] [address] 02/09/2024 14:45:51 02/09/2024 15:21:02 Chronic headache disorder 847458944 G44.89 Type 2 jed betes mellitus without complication 119903129 E11.9 Crohn's disease 27431479 K50.90 Psoriatic arthritis 1563 07884 L40.50 Depressive disorder 3548 9007 F32.A Anxiety disorder F41.9 Chronic post-traumatic stress disorder 597700801 F43.12 Chronic low back pain 27 9137867 M54.50 Osteoporosis 79747526 M8 1.0 Fibromyalgia 209308211 M 79.7 Obesity 001768603 E66.9 Hypothyroidism 60421545 E03.9 Gastroesop hageal reflux disease without esophagitis 941864158 K21.9 [id number] Ehsan Roca MD [address] [address] 05/02/2024 12:47:50 05/02/2024 13:51:28 Type 2 diabetes mellitus without complication 297876611 E11.9 Chronic he adache disorder 042149976 G44.89 Crohn's disease 42430391 K50.90 Psoriatic arthritis 1563 17450 L40.50 Depressive disorder 3548 9007 F32.A Anxiety disorder 06 F41.9 Chronic post-traumatic stress disorder 914689069 F43.12 Chronic low back pain 27 4701620 M54.50 Osteoporosis 71091058 M8 1.0 Fibromyalgia 877732376 M 79.7 Obesity 034090242 E66.9 Hypothyroidism 58259192 E03.9 Gastroesop hageal reflux disease without esophagitis 456825841 K21.9 [id number] Ehsan Roca MD [address] [address] 07/18/2024 12:33:43 07/18/2024 13:02:27 Type 2 diabetes mellitus without complication 830438764 E11.9 Chronic he adache disorder 992577004 G44.89 Crohn's disease 88826806 K50.90 Psoriatic arthritis 1563 04061 L40.50 Depressive disorder 3548 9007 F32.A Anxiety disorder F41.9 Chronic post-traumatic stress disorder 221093126 F43.12 Chronic low back pain 27 1281600 M54.50 Osteoporosis 68551434 M8 1.0 Fibromyalgia 259557576 M 79.7 Obesity 081598221 E66.9 Hypothyroidism 90867092 E03.9 Gastroesop hageal reflux disease without esophagitis 488204393 K21.9 Adult [facility] th examination 867212950 Z00.00 Impairment of balance 38 2793679 R26.89 Angina pectoris 61963425 0 I20.9 [id number] Elva Okeefe NP [address] [address] 12/26/2024 11:52:58 12/26/2024 12:46:04 Acute ankle pain 8988688268 9105 M25.572 pt feels like she is maybe having gouthas hx of plantar fasciitis but this feels different to herwill order uric acid and xray and pain meds Health Concerns Section Related Observation LastModified by Organization Detai ls LastModified Time None Recorded Concern Status LastModified by Organization Details LastModified Time None Recorded Advance Directives Directive N: Payers Insurance Date Sequence Insurance Name Policy Number Policy Lopez Covered Member ID Lopez Member ID Guarantor Name 12/25/2024 1 [facility] (PP[facility]) [id number] Ignacio Jack Sameer [id number] Rachana Kumar Sameer 12/26/2024 DEAN KATHARINE Rachana Kumar Sameer Rachana Kumar Sameer Notes Date Note Type Note Provider Name and Address Organization Details Recorded Time 12/07/2023 text/html Pt is here for f/u on her meds and chronic conditions. Overall feeling much better and her headaches are almost gone since last visit. Denies any problem with meds. Denies any new concern. C/o chronic headache for last several years. Pt has not seen any specialist for it and never had any testing for it. Pt has tried otc meds for it, but it comes back. About 5-8 days per month, her headache is not controlled. Denies any h/o migraine in the past. At times, she gets blurred vision due to headache. Pt has multiple medical conditions and she is f/u with multiple specialists for it. Ehsan Roca MD [address], [place], [address], [employer] 12/07/2023 12:54:59 02/09/2024 text/html Pt is here for f/u on her meds and chronic conditions. Overall feeling much better and her headaches are almost gone since last visit. Denies any problem with meds. Denies any new concern. C/o chronic headache for last several years. Pt has not seen any specialist for it and never had any testing for it. Pt has tried otc meds for it, but it comes back. About 5-8 days per month, her headache is not controlled. Denies any h/o migraine in the past. At times, she gets blurred vision due to headache. Pt has multiple medical conditions and she is f/u with multiple specialists for it. Ehsan Roca MD [address], [place], [address], [employer] 02/09/2024 15:09:08 05/02/2024 text/html Pt is here for f/u on her meds and chronic conditions. Overall feeling much better and her headaches are almost gone since last visit. Denies any problem with meds. Denies any new concern. C/o chronic headache for last several years. Pt has not seen any specialist for it and never had any testing for it. Pt has tried otc meds for it, but it comes back. About 5-8 days per month, her headache is not controlled. Denies any h/o migraine in the past. At times, she gets blurred vision due to headache. Pt has multiple medical conditions and she is f/u with multiple specialists for it. Ehsan Roca MD [address], [place], [address], [facility] [employer] 05/02/2024 13:06:51 07/18/2024 text/html Pt is here for her annual exam. Overall feeling much better and her headaches are almost gone since last visit. Denies any problem with meds. C/o feeling off balance for last several years. Denies any fall/LOC/syncope in the past. Pt has not seen any Neuro yet. C/o central chest area pressure and heaviness few times in last couple months and it lasted for about couple hrs. She needed to take rest and it got better after it. Denies any chest pain in the office. Pt has h/o CVD. She has seen cardio few yrs ago, not seeing anyone for a while. C/o chronic headache for last several years. Pt has not seen any specialist for it and never had any testing for it. Pt has tried otc meds for it, but it comes back. About 5-8 days per month, her headache is not controlled. Denies any h/o migraine in the past. At times, she gets blurred vision due to headache. Pt has multiple medical conditions and she is f/u with multiple specialists for it. Ehsan Roca MD [address], [place], [address], [facility] [employer] 07/18/2024 13:07:36 12/26/2024 text/html left ankle pain started about 3 weeks agoswelling in the ankleburning, throbbing gets when she is on it. Elva Okeefe NP [address], [place], [address], [place] [facility] 12/26/2024 12:46:19 OBGyn Episode No OBEpisode recorded.
--- OUTSIDE RECORDS SUMMARY | 2025-01-04 13:18 | XMS_ITS | Encounter Summary ---
Author Organization [facility] Address [address] [place] [address] Care Team Providers Care Ply Bander Name Role Phone Deloris Kimbrough Stacy [facility] Primary Care Provider + Encounter Details Date Type Department Care Team (Late Contact Info) Description 04/13/2022 Abstract [facility] [address] Ab Gil MA Social History Tobacco Use Types Packs/Day Years Used Date Smoking Tobacco: Former Cigarettes Q uit: 2001 Smokeless Tobacco: Never Alcohol Use Standard Drinks/Week Comments No 0 (1 standard drink = 0.6 oz pur e alcohol) AUDIT-C Answer Date Recorded Frequency of Alcohol Consumption Never 02/22/2019 Average Number of Drinks Not on file 019 Frequency of Binge Drinking Not on file 10/2018 Comments No Sex and Gender Information Value Date Recorded Sex Assigned at Not on file Legal Sex Female 7:27 PM CDT Gender Identity Female 10/12/2021 6:17 AM CDT Sexual Orientation Straight 10/12/2021 6: 17 AM CDT COVID-19 Exposure Response Date Recorded In the last 10 days, have yo u been in contact with someone who was confirmed or suspected to have Coronavirus/COVID-19? No / Unsure 04/14/2022 10:25 AM CDT documented as of this encounter Plan of Treatment Upcoming Encounters Date Type Department Care Team (Late Contact Info) Description 03/18/2025 12:45 PM CDT Office Visit [facility] [address] [place] [address] Jonnie Diallo MD [facility], [address] [place] [address] documented as of this encounter Procedures Procedure Name Priority Date/Time Associated Diagnosis Comments LIPID PANEL Routine 03/11/2022 documented in this encounter Results * LIPID PANEL (03/11/2022) CHOLESTEROL 250 HDL 50 TRIGLYCERIDES 164 LDL (CALCULATED) 167 03/11/2022 us Default History Genericprovider LABORATORY Final Result documented in this encounter Visit Diagnoses Not on filedocumented in this encounter Care Teams Ply Bander Relationship Specialty Start Date End Date Deloris Kimbrough, BUDGET CONSULTANT- [address] [place] [phone] PCP - General NURSE PRACTITIONER 02/22/19 documented as of this encounter
--- OUTSIDE RECORDS SUMMARY | 2025-01-04 13:18 | XMS_ITS | Encounter Summary ---
Author Organization [facility] Address [address] [place] [address] Care Team Providers Care Surtass Analyst Name Role Phone Deloris Kimbrough Stacy [facility] Primary Care Provider Ehsan Roca MD Primary Care Provider [phone] Encounter Details Date Type Department Care Team (Late st Contact Info) Description 05/21/2021 Telephone [facility] [address] [place] [address] Magdalena Brock MD [address] [facility] [address] [place] [phone] Social History Tobacco Use Types Packs/Day Years Used Date Smoking Tobacco: Former Cigarettes Q uit: 07/12/2000 Smokeless Tobacco: Never Alcohol Use Standard Drinks/Week Comments No 0 (1 standard drink = 0.6 oz pur e alcohol) Comments No Sex and Gender Information Value Date Recorded Sex Assigned at Not on file Legal Sex Female 5:36 PM MENS LOCKER ROOM ATTENDANT Gender Identity Not on file Sexual Orientation Not on file documented as of this encounter Patient Instructions * Patient Instructions* Fidelina Baez - 05/21/2021 3:54 PM MENS LOCKER ROOM ATTENDANT Patient called to schedule a NEW patient appointment because she was just newly diagnosed with TB. The earliest appointment that was available is in June. Patient was concerned that that was way too far away and said that the referring doctor wants her seen yolette. Please advise if we can get her in sooner. Contact number is [phone]. LOCKER ROOM ATTENDANT documented in this encounter Plan of Treatment Upcoming Encounters Date Type Department Care Team (Late st Contact Info) Description 05/23/2025 2:00 PM MENS LOCKER ROOM ATTENDANT Office Visit [facility] [place] [address] [place] [phone] Shayy Javier MD [address] [place] [address] 09/23/2025 11:00 AM CDT Procedure visit [facility] - [address] [phone] 09/23/2025 11:30 AM CDT Office Visit [facility] - [address] [phone] Liu Pascual MD [address] [place] [address] [place] [address] documented as of this encounter Goals Goal Patient Goal Type Associated Problems Recent Progress Patient-Stated? Author Medication Management General On track( 025 2:57 PM CDT) Radha Vasquez, RN Note: Expected end date: ongoing Interventions: Take all medications as prescribed Let your doctor know right away about any changes in your medications Make sure to request a refill of your medication at least one week prior to your last dose documented as of this encounter Visit Diagnoses Not on filedocumented in this encounter Additional Health Concerns Infection Onset Date Last Indicated Resolved Time CDIFF Under Investigation 12/05/2023 12/05/2023 9:45 PM CDT documented as of this encounter Care Teams Surtass Analyst Relationship Specialty Start Date End Date Deloris Kimbrough, ACUTE DIALYSIS REGISTERED NURSE-CERTIFIED NOVELL ADMINISTRATOR [address] [place], [place] [phone] PCP - General 07/22/16 02/22/24 Ehsan Roca MD [address] [place] [phone] PCP - General Family Medicine 12/03/24 documented as of this encounter
--- OUTSIDE RECORDS SUMMARY | 2025-01-04 13:18 | XMS_ITS | Encounter Summary ---
Author Organization [facility] Address [facility] [place] [address] Care Team Providers Care Potato Chip Maker Name Role Phone Deloris Kimbrough Primary Care Provider Ehsan Roca MD Primary Care Provider [phone] Reason for Visit * Reason Onset Date Comments MEDICATION REFILL 09/12/2023 Encounter Details Date Type Department Care Team (Late st Contact Info) Description 09/12/2023 Refill [facility] [address] [place] [address], [facility] [place] [address] Snidi Penn MD [address] [place] [address] [place] [address] MEDICATION REFILL Social History Tobacco Use Types Packs/Day Years Used Date Smoking Tobacco: Former Cigarettes Q uit: 07/12/2000 Smokeless Tobacco: Never Alcohol Use Standard Drinks/Week Comments No 0 (1 standard drink = 0.6 oz pur e alcohol) AUDIT-C Answer Date Recorded Q1: How often do you have a drink containing alc ohol? Never 10/07/2022 Average Number of Drinks Not on file 023 Frequency of Binge Drinking Not on file 09/19 PHQ-2 Answer Date Recorded PHQ2 TOTAL SCORE 4 08/26/2022 Comments No Sex and Gender Information Value Date Recorded Sex Assigned at Not on file Legal Sex Female 5:36 PM TANK TESTER Gender Identity Not on file Sexual Orientation Not on file documented as of this encounter Functional Status * Is person deaf or have serious hearing difficulty? Answer Date of Assessment Author No 10/07/2022 11:15 AM Arley Olguin RN * Is person blind or have serious difficulty seeing? Answer Date of Assessment Author No 10/07/2022 11:15 AM Arley Olguin RN * Does person have serious difficulty walking/climbing stairs? Answer Date of Assessment Author No 10/07/2022 11:15 AM Arley Olguin RN * Does person have difficulty dressing/bathing? Answer Date of Assessment Author No 10/07/2022 11:15 AM Arley Olguin RN * Does person have difficulty doing errands alone? Answer Date of Assessment Author No 10/07/2022 11:15 AM Arley Olguin RN documented as of this encounter Mental Status * Does person have difficulty concentrating/remembering/making decisions? Answer Entry Date Author No 10/07/2022 11:15 AM Arley Olguin RN documented in this encounter Plan of Treatment Upcoming Encounters Date Type Department Care Team (Late st Contact Info) Description 05/23/2025 2:00 PM TANK TESTER Office Visit [facility] [address] [place] [phone] Shayy Javier MD [address] [place] [address] 09/23/2025 11:00 AM CDT Procedure visit [facility] [address] [place] [phone] 09/23/2025 11:30 AM CDT Office Visit [facility] [address] [place] [phone] Liu Pascual MD [address] [place] [address] [place] [address] documented as of this encounter Goals Goal [...] documented as of this encounter Care Teams Potato Chip Maker Relationship Specialty Start Date End Date Deloris Kimbrough APRN-CAFETERIA MANAGER [address] [place] [phone] PCP - General 07/22/16 02/22/24 Ehsan Roca MD [address] [place] [phone] PCP - General Family Medicine 12/03/24 documented as of this encounter
--- OUTSIDE RECORDS SUMMARY | 2025-01-04 13:18 | XMS_ITS | Patient Health Record ---
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 Name Role Phone Abelino NARAYANAN, [facility] Primary Care Provider Sumit Chavis Unavailable [phone] Rosalind Nunez Unavailable [phone] Allergies Allergen (clinical drug ingredient) Drug/Non Drug Allergy documented on EMR Reaction Allergy Type Onset Date Status gatifloxacin TEQUIN (uncoded) Unknown Allergy 07/25/2023 Active lorazepam Ativan Unknown Drug Allergy 07/25/2023 Active ciprofloxacin Cipro Unknown Drug Allergy 07/25/2023 Ac tive Ciprofloxacin Unknown Drug Allergy 07/25/2023 Ac tive gatifloxacin Gatifloxacin Unknown Drug Allergy 07/25/2023 Active Levaquin Unknown Drug Allergy 07/25/2023 Active levofloxacin levoFLOXacin Unknown Drug Allergy 07/25/2023 Active lorazepam LORazepam Unknown Drug Allergy 07/25/2023 Active Norfloxacin Unknown Drug Allergy 07/25/2023 Acti ve ofloxacin Ofloxacin Unknown Drug Allergy 07/25/2023 Active delafloxacin Delafloxacin Unknown Drug Allergy 07/25/2023 Active gemifloxacin Gemifloxacin Unknown Drug Allergy 07/25/2023 Active moxifloxacin Moxifloxacin Unknown Drug Allergy 07/25/2023 Active Reason For Referral No Information Medications Medication SIG (Take, Route, Frequency, Duration) Notes Start Date End Date Status Wegovy 2.4 MG/0.75ML Subcutaneous *Reorder fr om [facility] for eRx and Interaction Alerts* 10/24/2023 Active valACYclovir HCl 500 MG Oral; Duration: 90 Days Not-Taking Propranolol HCl 40 MG Oral 10/24/2023 Active Dapagliflozin Propanediol 10 MG Oral; Duration: 90 Days Active ESTRADIOL 1 MG/GRAM (0.1 %) TRANSDERMAL GEL PACKET *Reorder from [facility] for eRx and Interaction Alerts* 10/24/2023 Active oxyBUTYnin Chloride ER 10 MG Oral 10/24/2023 Active [place] Thyroid 180 mg Oral 10/24/2023 Active Myrbetriq 25 MG Oral 10/24/2023 Act ginger Rosuvastatin Calcium 40 MG Oral 10/24/2023 Active Pantoprazole Sodium 40 MG Oral 10/24/2023 Active Famotidine 20 MG Oral 10/24/2023 Ac tive Mounjaro 10 MG/0.5ML Subcutaneous *Reorder fr om [facility] for eRx and Interaction Alerts* 10/24/2023 Active buPROPion HCl ER (XL) 300 MG 1 tablet every morning Oral Once a day; Duration: 90 days Active Osphena 60 MG Oral 10/24/2023 Activ e DULoxetine HCl 60 MG 1 capsule Oral Once a day; Duration: 90 days Active Ergocalciferol 1.25 MG (72174 UT) Oral 10/24/2023 Active Zoledronic Acid 5 mg/100 mL Intravenous 10/24/2023 Active Immunizations Vaccine Route Administration Date Status Comme nts Novel [id number], preservative free Unknown 03/30/2018 Administered Tdap Unknown 07/05/2003 Administered Tdap Unknown 12/26/2017 Administered Tetanus toxoid, adsorbed Unknown 06/20/2017 Administere d Social History Tobacco Use: Social History Observation Description Date Details (start date - stop date) Unknown Sex Assigned At : Social History Observation Description Sex Assigned At Female Tobacco Control (Standard) Question Answer Notes Tobacco use: Uses tobacco in other forms Problems Problem Type SNOMED Code ICD Code Onset Dates Problem Status W/U Status Risk Notes Problem Moderate recurrent major depression (25920156) Major depressive disorder, recurrent, moderate (F33.1) Active confirmed Problem Generalized anxiety disorder (09294115) Generalized anxiety disorder (F41.1) Active confirmed Problem Posttraumatic stress disorder (89306595) Post-traumatic stress disorder, chronic (F43.12) Active confirmed Vital Signs Heart Rate 98 /min 12/12/2024 Height-cm 162.56 cm 12/12/2024 Blood pressure diastolic 76 mm Hg 12/12/2024 Weight-kg 80.74 kg 12/12/2024 Height 64.00 in 12/12/2024 Blood pressure systolic 120 mm Hg 12/12/2024 Weight 178 lbs 12/12/2024 BMI 30.55 kg/m2 12/12/2024 Encounters Encounter Location Date Provider Diagnosis [facility] [employer] [address] [address] 01/18/2024 Rosalind Enrique MDD (major depressiv e disorder), recurrent severe, without psychosis F33.2 ; Generalized anxiety disorder F41.1 and Chronic posttraumatic stress disorder F43.12 [facility] [address] [address] 01/11/2024 Rosalind Enrique MDD (major depressiv e disorder), recurrent severe, without psychosis F33.2 ; Generalized anxiety disorder F41.1 and Chronic posttraumatic stress disorder F43.12 [facility] [id number] [address] 01/23/2024 Sumit Solanooza Generalized anxiety disorder F41.1 ; Post-traumatic stress disorder, chronic F43.12 and Major depressive disorder, recurrent, moderate F33.1 [facility] [address] [facility] [address] [address] 01/25/2024 Rosalind Enrique MDD (major depressiv e disorder), recurrent severe, without psychosis F33.2 ; Generalized anxiety disorder F41.1 and Chronic posttraumatic stress disorder F43.12 [facility] [address] [facility] [address] [address] 02/01/2024 Rosalind Enrique MDD (major depressiv e disorder), recurrent severe, without psychosis F33.2 ; Generalized anxiety disorder F41.1 and Chronic posttraumatic stress disorder F43.12 [facility] [place] [address] [address] 02/08/2024 Rosalind Enrique MDD (major depressiv e disorder), recurrent severe, without psychosis F33.2 ; Generalized anxiety disorder F41.1 and Chronic posttraumatic stress disorder F43.12 [facility] [place] [address] [address] 02/15/2024 Rosalind Enrique MDD (major depressiv e disorder), recurrent severe, without psychosis F33.2 ; Generalized anxiety disorder F41.1 and Chronic posttraumatic stress disorder F43.12 [facility] [address] [address] 02/22/2024 Rosalind Enrique MDD (major depressiv e disorder), recurrent severe, without psychosis F33.2 ; Generalized anxiety disorder F41.1 and Chronic posttraumatic stress disorder F43.12 [facility] [address] [address] 02/29/2024 Rosalind Enrique MDD (major depressiv e disorder), recurrent severe, without psychosis F33.2 ; Generalized anxiety disorder F41.1 and Chronic posttraumatic stress disorder F43.12 [facility], [place] [address] [address] 03/20/2024 Rosalind Enrique MDD (major depressiv e disorder), recurrent severe, without psychosis F33.2 ; Generalized anxiety disorder F41.1 and Chronic posttraumatic stress disorder F43.12 [place] [address] [address] 03/27/2024 Rosalind Enrique MDD (major depressiv e disorder), recurrent severe, without psychosis F33.2 ; Generalized anxiety disorder F41.1 and Chronic posttraumatic stress disorder F43.12 [place] [address] [address] 04/02/2024 Rosalind Enrique MDD (major depressiv e disorder), recurrent severe, without psychosis F33.2 ; Generalized anxiety disorder F41.1 and Chronic posttraumatic stress disorder F43.12 [facility] [address] [address] 04/23/2024 Sumit Villa Generalized anxiety disorder F41.1 ; Post-traumatic stress disorder, chronic F43.12 and Major depressive disorder, recurrent, moderate F33.1 [place] [address] [address] 04/24/2024 Rosalind Enrique Major depressive disorder, recurrent, moderate F33.1 ; Generalized anxiety disorder F41.1 and Chronic posttraumatic stress disorder F43.12 [facility], [place] [address] [facility] [address] [place] [address] 05/01/2024 Rosalind Enrique Major depressive disorder, recurrent, moderate F33.1 ; Generalized anxiety disorder F41.1 and Post-traumatic stress disorder, chronic F43.12 [facility], [place] [address] [address] 05/08/2024 Rosalind Enrique Major depressive disorder, recurrent, moderate F33.1 ; Generalized anxiety disorder F41.1 and Chronic posttraumatic stress disorder F43.12 [facility], [place] [address] [facility] [address] [place] [address] 05/29/2024 Rosalind Enrique Major depressive disorder, recurrent, moderate F33.1 ; Generalized anxiety disorder F41.1 and Post-traumatic stress disorder, chronic F43.12 [facility], [place] [address] [address] 06/06/2024 Rosalind Enrique Major depressive disorder, recurrent, moderate F33.1 ; Generalized anxiety disorder F41.1 and Post-traumatic stress disorder, chronic F43.12 [facility], [place] [address] [address] 06/28/2024 Rosalind Enrique Major depressive disorder, recurrent, moderate F33.1 ; Generalized anxiety disorder F41.1 and Post-traumatic stress disorder, chronic F43.12 [facility], [place] [address] [address] 07/12/2024 Rosalind Enrique Major depressive disorder, recurrent, moderate F33.1 ; Generalized anxiety disorder F41.1 and Post-traumatic stress disorder, chronic F43.12 [facility], [place] [address] [address] 08/09/2024 Rosalind Enrique Generalized anxiety disorder F41.1 ; Post-traumatic stress disorder, chronic F43.12 and Major depressive disorder, recurrent, moderate F33.1 [facility], [place] [address] [address] 08/29/2024 Sumit Villa Encounter for screen ing for depression Z13.31 ; Encounter for screening for cardiovascular disorders Z13.6 ; Dietary counseling and surveillance Z71.3 ; Generalized anxiety disorder F41.1 ; Post-traumatic stress disorder, chronic F43.12 and Major depressive disorder, recurrent, moderate F33.1 [place] [address] [facility] [address] [place] [address] 09/04/2024 Rosalind Nunez Major depressive disorder, recurrent, moderate F33.1 ; Generalized anxiety disorder F41.1 and Post-traumatic stress disorder, chronic F43.12 [place] [address] [facility] [address] [address] 09/19/2024 Rosalind Nunez Post-traumatic stres s disorder, chronic F43.12 ; Generalized anxiety disorder F41.1 and Major depressive disorder, recurrent, moderate F33.[address] [address] 10/17/2024 Rosalind Nunez Encounter for screen ing for depression Z13.31 ; Major depressive disorder, recurrent, moderate F33.1 ; Generalized anxiety disorder F41.1 and Post-traumatic stress disorder, chronic F43.[address] [address] 10/30/2024 Rosalind Nunez Major depressive disorder, recurrent, moderate F33.1 ; Generalized anxiety disorder F41.1 ; Post-traumatic stress disorder, chronic F43.12 and Encounter for screening for depression Z13.31 [place] [address] [facility] [address] [address] 11/30/2024 Rosalind Nunez [place] [address] [address] 12/12/2024 Sumit Villa Encounter for screen ing for cardiovascular disorders Z13.6 ; Encounter for screening for depression Z13.31 ; Dietary counseling and surveillance Z71.3 ; Generalized anxiety disorder F41.1 ; Post-traumatic stress disorder, chronic F43.12 and Major depressive disorder, recurrent, moderate F33.1 [place] [address] [facility] [address] [place] [address] 12/14/2024 Rosalind Nunez Major depressive disorder, recurrent, moderate F33.1 ; Generalized anxiety disorder F41.1 ; Post-traumatic stress disorder, chronic F43.12 and Encounter for screening for depression Z13.31 [facility], [place] [address] [address] 12/28/2024 Rosalind Nunez Major depressive disorder, recurrent, moderate F33.1 ; Generalized anxiety disorder F41.1 and Post-traumatic stress disorder, chronic F43.12 Assessments Encounter Date Diagnosis (ICD Code) Assessment Notes Treatment Notes Treatment Clinical Notes Section Notes 01/11/2024 MDD (major depressive disorder), recurrent severe, without psychosis (ICD-10 - F33.2) Client reports her dog had surgery for cancer and then was experiencing difficulty waling. Client had to take the dog back to the vet and there may be something wrong with the dog's spine but finding out for sure cost thousands of dollars. This senior dog was put on muscle relaxers and pain meds to ease her pain, but it looks like client may have to have her dog put down. Client just had to have her cat put to sleep, so she is understandably upset about this being in the foreseeable future. Therapist actively listened to client and utilized a supportive intervention by providing support and validation for her current struggle. 01/23/2024 Generalized anxiety disorder (ICD-10 - F41.1) Generalized Anxiety Disorder/Major Depressive Disorder -Continue Duloxetine 60mg daily -Continue Buproprion XR 300mg daily PTSD -Continue therapy with Fidelina. Pt Seen by PMHNP student Meg Hager I have examined the patient with [employer] Student. It reflects today's encounter and my assessment and treatment plan. 01/23/2024 Post-traumatic stress disorder, chronic (ICD-10 - F43.12) Generalized Anxiety Disorder/Major Depressive Disorder -Continue Duloxetine 60mg daily -Continue Buproprion XR 300mg daily PTSD -Continue therapy with Fidelina. Pt Seen by PMHNP student Meg Hager I have examined the patient with [employer] Student. It reflects today's encounter and my assessment and treatment plan. 01/18/2024 MDD (major depressive disorder), recurrent severe, without psychosis (ICD-10 - F33.2) Noa reports her dog still is not doing well with her legs. She primarily focused on issues in the marriage. She states he has been very irritable. Client also reports she feels overwhelmed by the number of phone calls she has to make related to her multiple doctor appointments she has and calls to insurance related to these doctor appointments. She became somewhat tearful when talking about this. Therapist actively listened to client and utilized a cognitive behavioral intervention to help client explore strategies to help her reduce her anxiety and depression related to these issues. 01/25/2024 MDD (major depressive disorder), recurrent severe, without psychosis (ICD-10 - F33.2) 02/01/2024 MDD (major depressive disorder), recurrent severe, without psychosis (ICD-10 - F33.2) Client reports she will have to put her dog down tomorrow. She had to put her cat down 2 months ago. She is grieving the loss of the cat and knowing she will loose her dog tomorrow. Therpist allowed the client to discuss the cydney her dog has brought her. Therapist also utilized a cognitive behavioral intervention to help client explore strategies to help with her grief. 02/08/2024 MDD (major depressive disorder), recurrent severe, without psychosis (ICD-10 - F33.2) 02/15/2024 MDD (major depressive disorder), recurrent severe, without psychosis (ICD-10 - F33.2) 02/22/2024 MDD (major depressive disorder), recurrent severe, without psychosis (ICD-10 - F33.2) 02/29/2024 MDD (major depressive disorder), recurrent severe, without psychosis (ICD-10 - F33.2) 03/20/2024 MDD (major depressive disorder), recurrent severe, without psychosis (ICD-10 - F33.2) 03/27/2024 MDD (major depressive disorder), recurrent severe, without psychosis (ICD-10 - F33.2) 04/02/2024 MDD (major depressive disorder), recurrent severe, without psychosis (ICD-10 - F33.2) 04/23/2024 Generalized anxiety disorder (ICD-10 - F41.1) 1. Depression and Anxiety: - Patient reports improvement in depression symptoms and mostly stable anxiety levels. - Continues to take duloxetine 60 mg once daily and bupropion XL 300 mg daily. - Attends regular counseling sessions with Rosalind. Plan: - Continue duloxetine 60 mg once daily. - Continue bupropion XL 300 mg daily. - Encourage patient to maintain regular counseling sessions. 2. Sleep: - Patient reports generally good sleep quality. - Sleep occasionally affected by fibromyalgia pain. Plan: - Monitor sleep quality and address any concerns in future visits. 3. Adjustment to new pets: - Patient coping with the loss of older pets and adjusting to new puppy and kitten. - Emotional support from pets is important for the patient's mental health. Plan: - Encourage patient to continue bonding with new pets and seek support from family and friends during the adjustment period. 5. Medication refills: - Patient uses [facility] for medication refills. Plan: - Refill duloxetine 60 mg and bupropion XL 300 mg prescriptions through [facility]. 04/24/2024 Major depressive disorder, recurrent, moderate (ICD-10 - F33.1) 05/01/2024 Major depressive disorder, recurrent, moderate (ICD-10 - F33.1) 05/08/2024 Major depressive disorder, recurrent, moderate (ICD-10 - F33.1) 05/29/2024 Major depressive disorder, recurrent, moderate (ICD-10 - F33.1) 05/29/2024 Generalized anxiety disorder (ICD-10 - F41.1) 06/06/2024 Major depressive disorder, recurrent, moderate (ICD-10 - F33.1) 07/12/2024 Major depressive disorder, recurrent, moderate (ICD-10 - F33.1) 06/28/2024 Major depressive disorder, recurrent, moderate (ICD-10 - F33.1) 08/09/2024 Generalized anxiety disorder (ICD-10 - F41.1) 08/29/2024 Encounter for screening for depression (ICD-10 - Z13.31) 09/04/2024 Major depressive disorder, recurrent, moderate (ICD-10 - F33.1) 09/19/2024 Post-traumatic stress disorder, chronic (ICD-10 - F43.12) 10/17/2024 Major depressive disorder, recurrent, moderate (ICD-10 - F33.1) 10/17/2024 Encounter for screening for depression (ICD-10 - Z13.31) 10/30/2024 Major depressive disorder, recurrent, moderate (ICD-10 - F33.1) 10/30/2024 Generalized anxiety disorder (ICD-10 - F41.1) 12/12/2024 Encounter for screening for cardiovascular disorders (ICD-10 - Z13.6) 12/14/2024 Major depressive disorder, recurrent, moderate (ICD-10 - F33.1) 12/14/2024 Generalized anxiety disorder (ICD-10 - F41.1) 12/28/2024 Major depressive disorder, recurrent, moderate (ICD-10 - F33.1) 12/28/2024 Generalized anxiety disorder (ICD-10 - F41.1) 09/19/2024 Generalized anxiety disorder (ICD-10 - F41.1) 12/12/2024 Encounter for screening for depression (ICD-10 - Z13.31) 12/14/2024 Post-traumatic stress disorder, chronic (ICD-10 - F43.12) 10/30/2024 Post-traumatic stress disorder, chronic (ICD-10 - F43.12) 10/17/2024 Generalized anxiety disorder (ICD-10 - F41.1) 09/04/2024 Generalized anxiety disorder (ICD-10 - F41.1) 08/29/2024 Encounter for screening for cardiovascular disorders (ICD-10 - Z13.6) 08/09/2024 Post-traumatic stress disorder, chronic (ICD-10 - F43.12) 06/28/2024 Generalized anxiety disorder (ICD-10 - F41.1) 07/12/2024 Generalized anxiety disorder (ICD-10 - F41.1) 06/06/2024 Generalized anxiety disorder (ICD-10 - F41.1) 05/29/2024 Post-traumatic stress disorder, chronic (ICD-10 - F43.12) 05/08/2024 Generalized anxiety disorder (ICD-10 - F41.1) 05/01/2024 Generalized anxiety disorder (ICD-10 - F41.1) 04/24/2024 Generalized anxiety disorder (ICD-10 - F41.1) 04/23/2024 Post-traumatic stress disorder, chronic (ICD-10 - F43.12) cont counseling 1. Depression and Anxiety: - Patient reports improvement in depression symptoms and mostly stable anxiety levels. - Continues to take duloxetine 60 mg once daily and bupropion XL 300 mg daily. - Attends regular counseling sessions with Rosalind. Plan: - Continue duloxetine 60 mg once daily. - Continue bupropion XL 300 mg daily. - Encourage patient to maintain regular counseling sessions. 2. Sleep: - Patient reports generally good sleep quality. - Sleep occasionally affected by fibromyalgia pain. Plan: - Monitor sleep quality and address any concerns in future visits. 3. Adjustment to new pets: - Patient coping with the loss of older pets and adjusting to new puppy and kitten. - Emotional support from pets is important for the patient's mental health. Plan: - Encourage patient to continue bonding with new pets and seek support from family and friends during the adjustment period. 5. Medication refills: - Patient uses [facility] for medication refills. Plan: - Refill duloxetine 60 mg and bupropion XL 300 mg prescriptions through [facility]. 04/02/2024 Generalized anxiety disorder (ICD-10 - F41.1) 03/27/2024 Generalized anxiety disorder (ICD-10 - F41.1) 03/20/2024 Generalized anxiety disorder (ICD-10 - F41.1) 02/29/2024 Generalized anxiety disorder (ICD-10 - F41.1) 02/22/2024 Generalized anxiety disorder (ICD-10 - F41.1) 02/15/2024 Generalized anxiety disorder (ICD-10 - F41.1) 02/08/2024 Generalized anxiety disorder (ICD-10 - F41.1) 02/01/2024 Generalized anxiety disorder (ICD-10 - F41.1) 01/23/2024 Major depressive disorder, recurrent, moderate (ICD-10 - F33.1) Generalized Anxiety Disorder/Major Depressive Disorder -Continue Duloxetine 60mg daily -Continue Buproprion XR 300mg daily PTSD -Continue therapy with Fidelina. Pt Seen by PMHNP student Meg Hager I have examined the patient with [employer] Student. It reflects today's encounter and my assessment and treatment plan. 01/25/2024 Generalized anxiety disorder (ICD-10 - F41.1) 01/18/2024 Generalized anxiety disorder (ICD-10 - F41.1) 01/11/2024 Generalized anxiety disorder (ICD-10 - F41.1) 01/11/2024 Chronic posttraumatic stress disorder (ICD-10 - F43.12) 01/18/2024 Chronic posttraumatic stress disorder (ICD-10 - F43.12) 01/25/2024 Chronic posttraumatic stress disorder (ICD-10 - F43.12) 02/01/2024 Chronic posttraumatic stress disorder (ICD-10 - F43.12) 02/08/2024 Chronic posttraumatic stress disorder (ICD-10 - F43.12) 02/15/2024 Chronic posttraumatic stress disorder (ICD-10 - F43.12) 02/22/2024 Chronic posttraumatic stress disorder (ICD-10 - F43.12) 02/29/2024 Chronic posttraumatic stress disorder (ICD-10 - F43.12) 03/20/2024 Chronic posttraumatic stress disorder (ICD-10 - F43.12) 03/27/2024 Chronic posttraumatic stress disorder (ICD-10 - F43.12) 04/02/2024 Chronic posttraumatic stress disorder (ICD-10 - F43.12) 04/23/2024 Major depressive disorder, recurrent, moderate (ICD-10 - F33.1) 1. Depression and Anxiety: - Patient reports improvement in depression symptoms and mostly stable anxiety levels. - Continues to take duloxetine 60 mg once daily and bupropion XL 300 mg daily. - Attends regular counseling sessions with Rosalind. Plan: - Continue duloxetine 60 mg once daily. - Continue bupropion XL 300 mg daily. - Encourage patient to maintain regular counseling sessions. 2. Sleep: - Patient reports generally good sleep quality. - Sleep occasionally affected by fibromyalgia pain. Plan: - Monitor sleep quality and address any concerns in future visits. 3. Adjustment to new pets: - Patient coping with the loss of older pets and adjusting to new puppy and kitten. - Emotional support from pets is important for the patient's mental health. Plan: - Encourage patient to continue bonding with new pets and seek support from family and friends during the adjustment period. 5. Medication refills: - Patient uses [facility] for medication refills. Plan: - Refill duloxetine 60 mg and bupropion XL 300 mg prescriptions through [facility]. 04/24/2024 Chronic posttraumatic stress disorder (ICD-10 - F43.12) 05/01/2024 Post-traumatic stress disorder, chronic (ICD-10 - F43.12) 05/08/2024 Chronic posttraumatic stress disorder (ICD-10 - F43.12) 06/06/2024 Post-traumatic stress disorder, chronic (ICD-10 - F43.12) 07/12/2024 Post-traumatic stress disorder, chronic (ICD-10 - F43.12) 08/09/2024 Major depressive disorder, recurrent, moderate (ICD-10 - F33.1) 06/28/2024 Post-traumatic stress disorder, chronic (ICD-10 - F43.12) 08/29/2024 Dietary counseling and surveillance (ICD-10 - Z71.3) 09/04/2024 Post-traumatic stress disorder, chronic (ICD-10 - F43.12) 09/19/2024 Major depressive disorder, recurrent, moderate (ICD-10 - F33.1) 10/17/2024 Post-traumatic stress disorder, chronic (ICD-10 - F43.12) 10/30/2024 Encounter for screening for depression (ICD-10 - Z13.31) 12/14/2024 Encounter for screening for depression (ICD-10 - Z13.31) 12/12/2024 Dietary counseling and surveillance (ICD-10 - Z71.3) 12/28/2024 Post-traumatic stress disorder, chronic (ICD-10 - F43.12) 12/12/2024 Generalized anxiety disorder (ICD-10 - F41.1) 08/29/2024 Generalized anxiety disorder (ICD-10 - F41.1) 08/29/2024 Post-traumatic stress disorder, chronic (ICD-10 - F43.12) cont counseling 12/12/2024 Post-traumatic stress disorder, chronic (ICD-10 - F43.12) cont counseling 12/12/2024 Major depressive disorder, recurrent, moderate (ICD-10 - F33.1) 08/29/2024 Major depressive disorder, recurrent, moderate (ICD-10 - F33.1) 01/25/2024 Other Client reports she has been doing pretty well. She states she got to talk to her nephew who is stationed in [place], last night. She is close to her nephew and it was a good phone visit. She talked about wanting to go to marriage counseling. She spent a great deal of the session discussing her concerns about the political climate in this country. Therapist actively listened to client and utilized a cognitive intervention to help her explore strategies to minimize her stress about the current state of politics. 02/08/2024 Other Client reports they put their dog down last week. Quite by serendipity, when she was donating the dog's things, someone walked in with a small 7 lb.dog (6 mo.old) that client decided to foster to adopt. After client expressed her happiness with the new pup, she focused on her 's negative responses to simple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
--- OUTSIDE RECORDS SUMMARY | 2025-01-04 13:19 | XMS_ITS | Clinical Summary ---
Author Organization [facility] Address [address] [place] [address] Care Team Providers Care Building Custodian Name Role Phone Ehsan Roca MD Primary Care Provider [phone] Source Comments [facility],non-owned Affiliates and Associated Physician Practices is amultiple site organization consisting of ambulatory clinics and hospital sitesin [place], [place], [place] and [place]. This disclosure is being madepursuant to the Care Everywhere program and may not contain all information available regarding this patient. Last updated 18.[facility] Allergies Active Allergy Reactions Criticality Noted Date Comments Augmentin Diarrhea Medium 01/04/2024 Ciprofloxacin Urticaria,Numbness Medium 09/07/2012 Will not take due to side effects--mother allergic, Meperidine Nausea and/or Vomiting Medium 10/06/2022 Vomitting Fluoroquinolones [Other] Itching Low 06/20/2014 Gatifloxacin Nausea and/or Vomiting Low 12/07/2011 Gemifloxacin Rash Medium 04/26/2018 Levaquin Rash Medium 12/07/2011 Levofloxacin Rash Medium 12/07/2011 Lorazepam Anaphylaxis High 12/26/2018 Moxifloxacin Rash Medium 04/26/2018 Norfloxacin Rash Medium 04/26/2018 Ofloxacin Rash Medium 04/26/2018 Medications * Be aware that medications may not be up to date on this document. Alwaysverify current medications with the patient. Cinnamon 500 MG Take 4 (four) tablets by mouth once daily Active ONETOUCH VERIO test strip 08/10/19 18 Active B-D ULTRAFINE III SHORT PEN 31G X 8 MM needle 08/10/19 18 Active ONETOUCH DELICA LANCETS 33G MISC 08/10/19 18 Active MILK THISTLE PO Take 175 mg by mouth once daily Active ARMOUR THYROID 180 MG tablet Take 1 (one) tablet by mouth once daily 10/27/19 18 Active Zinc 50 MG Take 1 tablet by mouth once daily Active buPROPion XL 24hr (WELLBUTRIN-XL) 300 MG tablet Take 1 (one) tablet by mouth once daily Active Cholecalciferol (VITAMIN D3) 1.25 MG (26267 UT) capsule Take 1 (one) capsule by mouth every 7 days Active COD LIVER OIL PO Take 2,685 mg by mouth once daily Active L-Lysine 500 MG Take 1 (one) tablet by mouth once daily Active pantoprazole EC (PROTONIX) 40 MG tabletIndicatio ns:pLEASE KEEP FOLLOW UP APPOINTMENT FOR FURTHER REFILLS TAKE 1 TABLET TWICE A DAY Reasons: pLEASE KEEP FOLLOW UP APPOINTMENT FOR FURTHER REFILLS 60 tablet 09/29/19 22 Active Additional Information Patient taking differently: 40 mg Oral DAILY, (No instructions reported), Indications: pLEASE KEEP FOLLOW UP APPOINTMENT FOR FURTHER REFILLS, Reported on 01/27/2023 DULoxetine (CYMBALTA) 60 MG capsule Take 1 (one) capsule by mouth once daily Active medical marijuana marijuana (cannabis) Active zoledronic acid (Reclast) 5 MG/100ML infusion 1 (one) time yearly 08/17/19 23 Active oxyBUTYnin CR 24hr (Ditropan-XL) 10 MG tablet Take 1 (one) tablet by mouth once daily Active Estradiol (Divigel) 1 MG/GM Apply to skin once daily Active ibuprofen (Motrin) 200 MG tablet Take 1 (one) tablet by mouth every 6 hours as needed for Pain Active calcium carbonate (Caltrate) 600 MG tablet Take 1 (one) tablet by mouth daily with food Active propranolol (Inderal) 40 MG tablet Take 1 tablet every day by oral route as directed for 90 days. 07/18/19 24 Active dapagliflozin propanediol (Farxiga) 10 MG tablet Take 1 (one) tablet by mouth every morning Active polyethylene glycol 3350 (Miralax) 17 GM/SCOOP powder Take 17 (seventeen) g by mouth once daily 238 g 03/02/20 24 Active Additional Information Patient not taking.Reported on 12/26/2024 risankizumab-rz aa (Skyrizi) 360 MG/2.4ML SOCT Inject 2.4 mL subcutaneously Every 8 Weeks 2.4 mL 5 05/09/20 24 Active Blood Glucose Monitoring Suppl (ONE TOUCH ULTRA 2) w/Device KIT 05/31/20 24 Active Continuous Glucose Sensor (Dexcom G7 Sensor) MISC 01/23/20 24 Active icosapent ethyl (Vascepa) 1 g capsule Take 1 (one) capsule by mouth 2 times daily with morning and evening meal 05/31/20 24 Active prednisoLONE acetate (Pred Forte) 1 % ophthalmic suspension Instill 2 (two) drops into right eye 4 times daily 05/23/20 24 Active ferrous sulfate 325 (65 FE) MG tabletIndicatio ns:Iron Deficiency Take 1 (one) tablet by mouth once daily for 90 days Reasons: Iron Deficiency 90 tablet 09/20/19 25 Active vitamin D, ergocalciferol, (Drisdol) 1.25 MG (26939 UT) capsule 12/21/19 25 Active amLODIPine (Norvasc) 5 MG tablet 10/10/19 25 Active Calcium Carb-Cholecalci ferol (Calcium/Vitami n D) 600-400 MG-UNIT TABS Take 1 tablet twice a day by oral route as directed for 90 days. Active glipiZIDE (Glucotrol) 5 MG tablet 10/10/19 25 Active PreviDent 5000 Enamel Protect 1.1-5 % USE DIRECTED AT LEAST 2 TIMES A DAY Active traMADol (Ultram) 50 MG tablet Take 1 tablet every 12 hours by oral route for 6 days. 12/27/19 25 Active rosuvastatin (Crestor) 40 MG tablet 10/10/19 25 Active Mounjaro 15 MG/0.5ML injection 10/11/19 25 Active mirabegron ER 24hr (Myrbetriq) 50 MG tablet Take 1 (one) tablet by mouth once daily 90 tablet 1 12/27/19 25 Active mirabegron ER 24hr (MYRBETRIQ) 25 MG tablet Myrbetriq 25 mg tablet,extended release TAKE 1 TABLET DAILY (REPLACES VESICARE) 025 Discontinu ed(Reorder ) rosuvastatin (Crestor) 5 MG tablet once daily 025 Discontinu ed(Tx Complete) Mounjaro 10 MG/0.5ML injection Inject 15 mg subcutaneously every 7 days 07/25/19 24 025 Discontinu ed(Tx Complete) ustekinumab (Stelara) 90 MG/ML prefilled syringe 025 Active Problems Problem Noted Date Diagnosed Date Anxiety disorder 09/19/2023 Hypercholesterolemia 03/11/2022 09/19/2023 Osteoporosis 12/23/2021 09/19/2023 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 Infliximab --> reaction secondary to antibodies formation. 2021: Ustekinumab and dose was increased to every 4 weeks in August 2022 due to low level. 08/2023: MRE: Mild TI thickening , no active inflammation 09/2023: FCP 723 12/2023: VCE: Multiple scattered apthous ulcers in small bowels consistent with active Crohn's disease 03/2024: Shifted to Rizankizumab- completed induction. Cervical radiculopathy 04/10/2018 Hemorrhoids 10/31/2017 Overview (10/15/2019): Frequent bleeding. Since childbirth in 1990. Depression 10/30/2017 Obstructive sleep apnea 11/22/2016 Overview (09/19/2017): Diagnosed 2014, not using CPAP. Uses oral device. Iron deficiency 11/22/2016 Overview (09/19/2020): Attributed to chronic hemorrhoidal bleeding. 12/07/11 duodenal biopsy: inflammation in lamina propria but no increased IELs or changes in villous architecture 12/07/11 colonoscopy: poor prep, no polyps 03/16/12 trf sat 8% 09/07/12 trf sat 22% 07/13/16 EGD: retained gastric contents, SB biopsies: normal villi, no inflammation 09/16/20 iron 48, trf 230, ferritin 322 (media) Chronic midline low back pain without sciatica 0 08/13/2016 Overview (10/13/2020): Pain on palpation on right costochondral margin consistent with costochondritis. Abdominal pain 05/10/2016 Overview (09/19/2017): Pain on palpation on right costochondral margin consistent with costochondritis. Fibromyalgia 05/10/2016 Psoriasis 05/10/2016 Overview (09/19/2017): Has not received methotrexate. Increased soft tissue pain with Otezla. Costochondritis 09/26/2015 Hypothyroidism 03/01/2014 Obesity 03/01/2014 MASH (metabolic dysfunction associated steatohepatitis, previously known as QUINTERO) 03/01/2014 Overview (09/17/2024): Overview: 11/16/11 liver biopsy: QUINTERO, dense zone 3 PSF and periportal fibrosis, stage 2 07/13/16 liver biopsy: QUINTERO, stage 2 dwp (extraordinary pain after EGD/bx with sedation, required overnight observation, no bleed on CT, readmitted overnight a few days later with dyspnea, Hgb unchanged, CT okay) 12/05/17 Fibroscan CAP 277, LSM 9.8 kPa 02/22/19 CT w/contrast: fatty liver (in Synapse, downloaded from OSH) 01/07/20 Fibroscan CAP 290, LSM 8.1 kPa 10/13/20 Fibroscan CAP 277, LSM 5.4 kPa 10/05/21 Fibroscan CAP 256, LSM 9.1 kPa 09/20/22 Fibroscan CAP 269, LSM 8.5 kPa 09/19/23 Fibroscan CAP 290, LSM 15.1 kPa 09/17/24 Fibroscan CAP 247, LSM 7.9 kPa Type 2 diabetes mellitus 03/01/2014 GERD (gastroesophageal reflux disease) 2 Resolved Problems Problem Noted Date Diagnosed Date Resolved Date Helicobacter pylori ab+ 12/09/201709/19 Overview (12/09/2017): 47 y/o with chronic RUQ pain s/p cholecystectomy. IgG is 1.13 (positive). Will treat with 14 days of biaxin, flagyl, and protonix. Pleuritic chest pain 11/25/2017 020 Overview (11/25/2017): 47 y/o female who presents having been seen previously 2 years ago in referral for a clip from a laparoscopic cholecystectomy 20 years on the right lateral border of the upper abdomen. The patient has had chronic right chest pain/right upper lateral quadrant abdominal pain that became extenuated 4 weeks ago with increased discomfort with breathing. In review of the CTs from 2015 and 2016, the patient had right posterior atelectasis in 2017 which was timely related to an upper EGD requiring admission to hospital ICU as related to an adverse event involving conscious sedation. The attending radiologists have now reviewed the 2015 and 2016 CTs and concur that a repeat chest CT is indicated. [place], has two dogs and cats, and the most recent episode may be related to her having fallen asleep on the couch (the cats sometimes lay on the couch). The patient has psoriasis on both upper extremeties. Hx of duodenal ulcer 11/25/2017 020 Overview (11/25/2017): 47 y/o female who presents having been seen previously 2 years ago in referral for a clip from a laparoscopic cholecystectomy 20 years on the right lateral border of the upper abdomen. The patient has had chronic right chest pain/right upper lateral quadrant abdominal pain that became extenuated 4 weeks ago with increased discomfort with breathing. In review of the CTs from 2015 and 2016, the patient had right posterior atelectasis in 2017 which was timely related to an upper EGD requiring admission to hospital ICU as related to an adverse event involving conscious sedation. The attending radiologists have now reviewed the 2015 and 2017 CTs and concur that a repeat chest CT is indicated. The [place], has two dogs and cats, and the most recent episode may be related to her having fallen asleep on the couch (the cats sometimes lay on the couch). The patient has psoriasis on both upper extremeties. Patient has a history of duodenal ulcer, is treated with protonix, and serology has not been checked. Psoriatic arthritis 05/10/2016 07/30/19 22 Overview (10/30/2017): Overview: Dx 2015. Mostly hands, ankles, knees. Encounters Date Type Department Care Team Description 12/31/2024 Telephone [facility] - GI [address] [place] [address] Shayy Javier MD Medication Prior Auth Request 12/26/2024 1:40 PM CDT Office Visit [facility] - Urology [address] [place] [phone] Indio Mcclure PA Urge incontinence (Primary Dx); Stress incontinence 12/26/2024 Travel 12/06/2024 Travel 12/03/2024 3:00 PM CDT Office Visit [facility] - GI [address] [place] [phone] Shayy Javier MD Crohn's disease of small intestine with other complication (HCC) (Primary Dx); Overflow incontinence of urine 12/03/2024 Travel from Last 3 Months Immunizations Immunization Administration Dates Next Due INFLUENZA VACCINE, QUADR. (F LUZONE; FLULAVAL; FLUARIX; AFLURIA QUADRIVALENT; 6MO+), 0.5 ML (IIV4) 03/30/2018 PNEUMOCOCCAL PPSV23 10/05/2021 Pneumococcal Pcv13 Conj 06/24/2021 TDAP (7yrs+) 12/26/2017,07/05/2003 Family History Medical History Relation Name Comments None Known Brother Status: Alive CVA Father Unkn None Known Mother Status: Alive Relation Name Status Comments Brother Alive Father Unkn Other Mother Alive Social History Tobacco Use Types Packs/Day Years Used Date Smoking Tobacco: Former Cigarettes Q uit: 07/12/2000 Smokeless Tobacco: Never Tobacco Cessation:Counseling Given: No Alcohol Use Standard Drinks/Week Comments No 0 (1 standard drink = 0.6 oz pur e alcohol) AUDIT-C Answer Date Recorded Q1: How often do you have a drink containing alc ohol? Never 03/02/2024 Average Number of Drinks Not on file 024 Frequency of Binge Drinking Not on file 02/18 PHQ-2 Answer Date Recorded PHQ2 TOTAL SCORE 4 08/26/2022 Comments No Sex and Gender Information Value Date Recorded Sex Assigned at Not on file Legal Sex Female 5:36 PM FAMILY SUPPORT WORKER Gender Identity Not on file Sexual Orientation Not on file Last Filed Vital Signs Vital Sign Reading Time Taken Comments Blood Pressure 136/88 12/26/2024 1:21 PM CDT Pulse 79 12/26/2024 1:21 PM CDT Temperature 36.4 C (97.6 F) 12/26/2024 1:21 PM CDT Respiratory Rate 11 03/02/2024 7:15 AM CDT Oxygen Saturation 97% 12/26/2024 1:21 PM CDT Inhaled Oxygen Concentration - - Weight 79.4 kg (175 lb) 12/26/2024 1:21 PM CDT Height 162.6 cm (5' 4) 12/26/2024 1:21 PM CDT Body Mass Index 30.04 12/26/2024 1:21 PM CDT Plan of Treatment Upcoming Encounters Date Type Department Care Team (Late st Contact Info) Description 05/23/2025 2:00 PM FAMILY SUPPORT WORKER Office Visit [facility] - GI [address] [place] [phone] Shayy Javier MD [address] [place] [address] 09/23/2025 11:00 AM CDT Procedure visit [facility] - GI [address] [place] [phone] 09/23/2025 11:30 AM CDT Office Visit [facility] - GI [address] [place] [phone] Liu Pascual MD [address] [place] [address] [place] [address] Health Maintenance Due Date Last Done Comments COLOGUARD (AGES 45-75) - COLON CA SCREENING 1971 CT COLONOGRAPHY - COLON CA SCREENING 1971 FIT - COLON CA SCREENING 1971 FLEX SIG - COLON CA SCREENING 1971 MAMMOGRAM 1971 HIV SCREENING 1986 HEPATITIS B VACCINE (1 of 3 - 19+ 3-dose series) 1990 PAP SMEAR 1992 DIABETES-FOOT EXAM WITH MONOFILAMENT 10/06/2018 DIABETES-HGB A1C 10/24/2018 04/26/2018 ZOSTER VACCINE (1 of 2) 2021 COVID-19 VACCINE (1 - 2023- season) 2024 DEPRESSION SCREENING 06/20/2024 01/27/2023, 12/30/2022, 12/30/2022, Additional history exists DIABETES - URINE PROTEIN SCREENING 06/20/2024 DIABETES RETINOPATHY SCREENING 09/03/2024 09/03/2022 INFLUENZA VACCINE (#1) 2025 03/30/2018 DIABETES-SERUM CREATININE 09/17/20252024, 12/05/2023, 09/11/2023, Additional history exists PNEUMOCOCCAL VACCINE 50+ (3 of 3 - PCV20 or PCV21) 10/05/2026 10/05/2021, 06/24/2021 DTAP/TDAP/TD VACCINES (3 - Td or Tdap) 12/27/2027 12/26/2017, 07/05/2003 COLON MONITORING 01/23/2031 01/23/2021, 01/23/2021 COLONOSCOPY - COLON CA SCREENING 01/23/2031 01/23/2021, 01/23/2021 Colorectal Cancer Screening 01/23/2031 HEPATITIS C SCREENING Completed 05/17/2016 HIB VACCINE Aged Out No longer eligi ble based on patient's age to complete this topic HPV VACCINE Aged Out No longer eligi ble based on patient's age to complete this topic MENINGOCOCCAL (Group B) VACCINE SHARED DECISION-MAKING Aged Out No longer eligible based on patient's age to complete this topic MENINGOCOCCAL GROUPS A/C/Y/W VACCINE Aged Out No longer eligible based on patient's age to complete this topic Goals Goal Patient Goal Type Associated Problems Recent Progress Patient-Stated? Author Medication Management General On track( 025 2:57 PM CDT) Radha Vasquez RN Note: Expected end date: ongoing Interventions: Take all medications as prescribed Let your doctor know right away about any changes in your medications Make sure to request a refill of your medication at least one week prior to your last dose Medical Devices Explanted Type Area Store Stock Associate Device Identifier Shelf Expiration Date Model / Serial / Lot Screw 3.5mm 6mm 20mm 2.5mm Ft Slf-Tap Explanted:Qty: 1 on 10/07/2022 by Shanice Patel MD at [facility] Left: [employer] 10/07/2022 [id number] / / Screw 2.7mm 22mm T8 Slf-Tap Lck Va Strdr Explanted:Qty: 1 on 10/07/2022 at [facility] Left: [employer] 10/07/2022 [id number] / / Screw 2.7mm 32mm T8 Slf-Tap Lck Va Strdr Explanted:Qty: 1 on 10/07/2022 at [facility] Left: [employer] 10/07/2022 02.211.032 / / Screw 2.7mm 40mm T8 Slf-Tap Strdr Lopro Explanted:Qty: 1 on 10/07/2022 by Shanice Patel MD at [facility] Left: [employer] 10/07/2022 [id number] / / Screw 2.7mm 42mm T8 Slf-Tap Strdr Lopro Explanted:Qty: 2 on 10/07/2022 by Shanice Patel MD at [facility] Left: [employer] [id number] / / 2.7/3.5 Mm Plate Implanted:Qty: 1 on 10/07/2022 by Shanice Patel MD at [facility] Explanted:Qty: 1 on 03/02/2024 by Dre Alex MD at [facility] Left: Elbow 10/07/2022 [id number] / / Screw 2.7mm 46mm T8 Slf-Tap Lck Va Strdr Implanted:Qty: 1 on 10/07/2022 by Shanice Patel MD at [facility] Explanted:Qty: 1 on 03/02/2024 by Dre Alex MD at [facility] Left: [employer] 10/07/2022 [id number] / / Screw 3.5mm 6mm 16mm 2.5mm Ft Slf-Tap Implanted:Qty: 2 on 10/07/2022 by Shanice Patel MD at [facility] Explanted:Qty: 2 on 03/02/2024 by Dre Alex MD at [facility] Left: [employer] 10/07/2022 [id number] / / Screw 2.7mm 44mm T8 Slf-Tap Strdr Lopro Implanted:Qty: 1 on 10/07/2022 by Shanice Patel MD at [facility] Explanted:Qty: 1 on 03/02/2024 by Dre Alex MD at [facility] Left: [employer] [id number] / / Screw 2.7mm 24mm T8 Slf-Tap Lck Va Strdr Implanted:Qty: 2 on 10/07/2022 by Shanice Patel MD at [facility] Explanted:Qty: 2 on 03/02/2024 by Dre Alex MD at [facility] Left: [employer] 10/07/2022 02.211.024 / / Screw 2.7mm 28mm T8 Slf-Tap Lck Va Strdr Implanted:Qty: 1 on 10/07/2022 by Shanice Patel MD at [facility] Explanted:Qty: 1 on 03/02/2024 by Dre Alex MD at [facility] Left: [employer] 10/07/2022 [id number] / / Screw 2.7mm 48mm T8 Slf-Tap Strdr Lopro Implanted:Qty: 1 on 10/07/2022 by Shanice Patel MD at [facility] Explanted:Qty: 1 on 03/02/2024 at [facility] Left: [employer] 10/07/2022 [id number] / / Screw 2.7mm 40mm T8 Slf-Tap Lck Va Strdr Implanted:Qty: 1 on 10/07/2022 by Shanice Patel MD at [facility] Explanted:Qty: 1 on 03/02/2024 by Dre Alex MD at [facility] Left: El[employer]s [facility] 10/07/2022 02.211.040 / / Procedures Procedure Name Priority Date/Time Associated Diagnosis Comments NC MSR PVR U&/BLADD CAPCTY US NON Routine 12/26/2024 1:38 PM CDT Urge incontinence URINALYSIS AUTO - POINT OF CARE (AMB) [facility] Routine 12/26/2024 1:38 PM CDT Urge incontinence COMPREHENSIVE METABOLIC PANEL Routine 09/17/2024 1:21 PM CDT Other specified intestinal malabsorption Iron deficiency Crohn's disease of small intestine with complication Medication monitoring encounter Gastroesophageal reflux disease without esophagitis EYE EXAM 09/03/2022 ENDOSCOPY, COLON, DIAGNOSTIC Routine 01/23/2021 10:58 AM CDT HEPATITIS C AB SCREEN RFLX NAAT QUANT Routine 05/17/2016 11:02 AM FAMILY SUPPORT WORKER from Last 3 Months or Most Recently Relevant to Health Maintenance Results * NC MSR PVR U&/BLADD CAPCTY US NON (12/26/2024 1:38 PM CDT) Narrative Fidelina Santos MA - 12/26/2024 1:38 PM CDT Fidelina Santos MA 12/26/2024 2:47 PM PVR=20ML us Indio Barajas PROCEDURE/MINOR SURGICAL ORDERAB LES Final Result * URINALYSIS AUTO - POINT OF CARE (AMB) [facility] (12/26/2024 1:38 PM CDT) Pathologist [facility] Glucose UA 3+ [facility] [address] Bilirubin UA POCT - [facility] [address] Ketones UA POCT - [facility] [address] Specific Wana UA 1.[address] [facility] [address] Blood Urine POCT 1+ 25ery/ul [facility] [address] pH UA 5.5 [facility] [address] Protein UA - [facility] [address] Urobilinogen UA - [facility] [address] Nitrite UA - [facility] [address] WBC UA - [facility] [address] Urine URINE / Unknown 12/26/2024 1 :38 PM CDT Indio Barajas LAB - POINT OF CARE ORDERABLES F inal Result [facility] [address] [facility] [address] [facility] [place] [address], [facility] [phone] * (ABNORMAL) COMPREHENSIVE METABOLIC PANEL (09/17/2024 1:21 PM CDT) Pathologist [facility] BUN 14 7 - 26 mg/dL 09/17/2024 2:15 PM T [facility] Creatinine 0.62 0.56 - 0.96 mg/dL 09/17/2024 2:15 PM [facility] Sodium 143 136 - 145 mmol/L 09/17/2024 2:15 PM T [facility] Potassium 4.4 3.5 - 4.5 mmol/L 09/17/2024 2:15 PM [facility] Chloride 110(H) 98 - 107 mmol/L 09/17/2024 2:15 PM [facility] CO2 27 22 - 29 mmol/L 09/17/2024 2:15 PM [facility] Glucose 108(H) 70 - 99 mg/dL 09/17/2024 2:15 PM T [facility] Calcium 9.2 8.4 - 10.2 mg/dL 09/17/2024 2:15 PM [facility] Protein Total 7.4 6.0 - 8.3 g/dL 09/17/2024 2:15 PM [facility] Albumin 4.0 3.4 - 5.0 g/dL 09/17/2024 2:15 PM [facility] Bilirubin Total 0.4 0.2 - 1.2 mg/dL 09/17/2024 2:15 PM [facility] Alkaline Phosphatase 71 40 - 150 U/L 09/17/2024 2:15 PM [facility] ALT 37 5 - 55 U/L 09/17/2024 2:15 PM [facility] AST 22 5 - 34 U/L 09/17/2024 2:15 PM [facility] Anion Gap 6 6 - 16 09/17/2024 2:15 PM [facility] BUN/Creatinine Ratio 23 7 - 23 09/17/2024 2:15 PM [facility] Osmolality Calculated 297(H) 275 - 295 mOsm/kg 09/17/2024 2:15 PM [facility] Albumin/Globulin Ratio 1.2 1.1 - 2.3 09/17/2024 2:15 PM [facility] eGFR by CKD-EPI >90 >=90 mL/min/1.7 3 m2 09/17/2024 2:15 PM [facility] Blood BLOOD SPECIMEN / Unknown Lab Venipuncture / Unknown 09/17/2024 1:21 PM CDT 09/17/2024 1:36 PM CDT Rachana Winston ORDER CONTROL CLERK BLOOD BANK-[facility] - CHEMISTRY ORDERABLES Final Result Performing Organization Address City/State/[facility] Co de Phone Number [facility] [address] [place] [phone], [facility] [phone] * EYE EXAM (09/03/2022) Anatomical Region Laterality Modality Other 09/03/2022 Narrative 09/03/2022 Ordered by an unspecified provider. us Scanned Document SCANNING ONLY Final Result * ENDOSCOPY, COLON, DIAGNOSTIC (01/23/2021 10:58 AM CDT) Report Endoscopy POC Endoscopy Department Report _ Patient Name: Rachana Sethi Procedure Date: 01/23/2021 10:58 AM Date of : 1970 Classification: Outpatient Gender: Female Ethnicity: Not or Race: White _ Providers: Jeffery Phoenix MD, Asif Regalado (Fellow) Referring MD: Deloris Kimbrough (Referring MD), Bowen Castellanos (Referring MD) Procedure: Colonoscopy Indications: Screening for colorectal malignant neoplasm Medications: Monitored Anesthesia Care Patient Profile: This is a 50 year old female. Description of Procedure: Pre-Anesthesia Assessment: - Prior to the procedure, a History and Physical was performed, and patient medications and allergies were reviewed. The patient's tolerance of previous anesthesia was also reviewed. The risks and benefits of the procedure and the sedation options and risks were discussed with the patient. All questions were answered, and informed consent was obtained. Prior Anticoagulants: The patient has taken no previous anticoagulant or antiplatelet agents. ASA Grade Assessment: II - A patient with mild systemic disease. After reviewing the risks and benefits, the patient was deemed in satisfactory condition to undergo the procedure. After I obtained informed consent, the scope was passed under direct vision. Throughout the procedure, the patient's blood pressure, pulse, and oxygen saturations were monitored continuously. The PCF-H190DL was introduced through the anus and advanced to the terminal ileum. The colonoscopy was performed without difficulty. The patient tolerated the procedure well. The quality of the bowel preparation was evaluated using the BBPS (Evans Bowel Preparation Scale) with scores of: Right Colon = 3 (entire mucosa seen well with no residual staining, small fragments of stool or opaque liquid), Transverse Colon = 3 (entire mucosa seen well with no residual staining, small fragments of stool or opaque liquid) and Left Colon = 2 (minor amount of residual staining, small fragments of stool and/or opaque liquid, but mucosa seen well). The total BBPS score equals 8. The quality of the bowel preparation was good. The terminal ileum, ileocecal valve, appendiceal orifice, and rectum were photographed. Findings: The digital rectal exam findings include non-thrombosed external hemorrhoids. The terminal ileum contained inflammatory changes and multiple ulcers concerning for Crohn's Disease. No bleeding was present. Biopsies were taken with a cold forceps for histology. Verification of patient identification for the specimen was done. Estimated blood loss was minimal. The colon (entire examined portion) appeared normal. No mass, polyps or colitis seen. Internal hemorrhoids were found during retroflexion. Estimated Blood Loss: Estimated blood loss was minimal. Complications: No immediate complications. Impression: 1) Multiple ulcers in the terminal ileum concerning for Crohn Disease. Biopsied. 2)The entire examined colon is normal. No coitis ot polyps seen. 3) Internal and external hemorrhoids. No anal fissures or ivette-anal fistulas. Recommendation: - Patient has a contact number available for emergencies. The signs and symptoms of potential delayed complications were discussed with the patient. Return to normal activities tomorrow. Written discharge instructions were provided to the patient. - Resume previous diet. - Continue present medications. - Await pathology results. - Consider MR Enerography - Discharge patient to home. - Repeat colonoscopy in 10 years for screening purposes. - Return to GI clinic as previously scheduled. Attending Participation: I was present and participated during the entire procedure, including non-mendoza portions. Procedure Code(s): --- Professional --- 80401, Colonoscopy, flexible; with biopsy, single or multiple Diagnosis Code(s): --- Professional --- Z12.11, Encounter for screening for malignant neoplasm of colon K64.4, Residual hemorrhoidal skin tags K64.8, Other hemorrhoids K63.3, Ulcer of intestine CPT copyright 2019 [employer]. All rights reserved. The codes documented in this report are preliminary and upon electronic court recorder review may be revised to meet current compliance requirements. _ Jeffery Phoenix MD 01/23/2021 11:58:46 AM Note Initiated On: 01/23/2021 10:58 AM Number of Addenda: [address] 01/23/2021 10:5 8 AM CDT us Jeffery Phoenix MD GI PROCEDURE ORDERABLES Edite d Result - Final Performing Organization Address [facility] Co de Phone Number [facility] * HEPATITIS C AB SCREEN RFLX PCR QUANT (05/17/2016 11:02 AM FAMILY SUPPORT WORKER) Hepatitis C Antibody Non-react [facility] Comment: Hepatitis C Antibody screen indicates no serologic evidence of past or current infection with Hepatitis C Virus. Patients with unexplained liver disease who are immunocompromised or suspected of having acute Hepatitis C infection may benefit from Nucleic Acid Test (ROBERTO) for Hepatitis C Viral RNA to confirm Hepatitis C status. BLOOD SPECIMEN / Unknown 05/17/2016 11:02 AM FAMILY SUPPORT WORKER 05/17/2016 11:27 AM FAMILY SUPPORT WORKER us Liu Pascual MD LAB - CHEMISTRY OR DERABLES Final Result [facility] [address] [place] [address] from Last 3 Months or Most Recently Relevant to Health Maintenance Insurance [facility] ANTHEM ANTHEM ANTHEM ANTHEM ANTHEM ANTHEM Member Subscriber Plan / [facility] Name:Rachana Sethi Relation to Subscriber:Spouse Name:JOSSIEALEX Marcie Date of :1963 Payer ID:[id number] ([facility]) Type:PPO Address: [id number] [place] [address] ANTHEM ANTHEM ANTHEM ANTHEM ANTHEM ANTHEM ANTHEM ANTHEM ANTHEM ANTHEM ANTHEM Member Subscriber Plan / P[facility]Present) Name:Jossie Rachana L Relation to Subscriber:Spouse Name:ALEX SETHI Date of :1962 Payer ID:[id number] ([facility]) Type:PPO Address: [address] [place] [address] ANTHEM Member Subscriber Plan / [facility] Name:Rachana Sethi Relation to Subscriber:Spouse Name:JOSSIEALEX Date of :1962 Payer ID:[id number] ([facility]) Type:PPO Address: [address] [place] [address] ANTHEM Member Subscriber Plan / P[facility]2010-Present) Name:Rachana Sethi Relation to Subscriber:Spouse Name:ALEX SETHI Date of :1962 Payer ID:[id number] ([facility]) Type:PPO Address: [address] [place] [address] ANTHEM Member Subscriber Plan / P[facility]Present) Name:Rachana Sethi Relation to Subscriber:Spouse Name:ALEX SETHI Date of :1962 Payer ID:[id number] ([facility]) Type:PPO Address: [address] [place] [address] ANTHEM ANTHEM ANTHEM ANTHEM ANTHEM ANTHEM ANTHEM ANTHEM ANTHEM ANTHEM ANTHEM ANTHEM ANTHEM ANTHEM Care Teams Building Custodian Relationship Specialty Start Date End Date Ehsan Roca MD [address] [place] [id number] PCP - General Family Medicine 12/03/24
--- OUTSIDE RECORDS SUMMARY | 2025-01-04 13:19 | XMS_ITS | Encounter Summary ---
Author Organization [facility] Address [address] [place] [address] Care Team Providers Care System Specialist Name Role Phone Deloris Kimbrough [facility] Primary Care Provider + Encounter Details Date Type Department Care Team (Late Contact Info) Description 03/13/2024 Therapy Plan [facility] [place] [address] Sandee Garcia, RN Social History Tobacco Use Types Packs/Day Years [...] Orientation Straight 10/12/2021 6: 17 AM CDT documented as of this encounter Plan of Treatment Upcoming Encounters Date Type Department Care Team (Late Contact Info) Description 03/18/2025 12:45 PM CDT Office Visit [facility] [address] [place] [address] Jonnie Diallo MD Three [facility] [address] [place] [address] documented as of this encounter Visit Diagnoses Diagnosis Crohn disease ([facility]/HCC [facility]/HCC)- Primary Regional enteritis of unspecified site documented in this encounter Care Teams System Specialist Relationship Specialty Start Date End Date Deloris Kimbrough, HUMAN RESOURCES ANALYST- [address] [place] [address] PCP - General NURSE PRACTITIONER 02/22/19 documented as of this encounter
--- OUTSIDE RECORDS SUMMARY | 2025-01-04 13:19 | XMS_ITS | Clinical Summary ---
Author Organization [facility] Address [facility] [place] [address] Care Team Providers Care Head Of Loss Prevention Name Role Phone Deloris Kimbrough [facility] Primary Care Provider + Allergies Active Allergy Reactions Criticality Noted Date Comments Ciprofloxacin Other (see comment) Low 09/07/2012 Will not take due to side effects--mother allergic Other reaction(s): Other Will not take due to side effects--mother allergic, Will not take due to side effects--mother allergic Gemifloxacin Rash Medium 04/26/2018 Levofloxacin Rash Medium 12/07/2011 Moxifloxacin Rash Medium 04/26/2018 Norfloxacin Rash Medium 04/26/2018 Ofloxacin Rash Medium 04/26/2018 Quinolones Rash Low 02/22/2019 Medications Milk Thistle Powder Take 175 mg by mouth daily. Active buPROPion XL 300 MG 24 hr tablet Take 300 mg by mouth every morning. 07/28/2018 Active Cinnamon 500 MG capsule Take 1,000 mg by mouth 2 (two) times daily. Active colesevelam 625 MG tablet Take 1,875 mg by mouth daily. 08/16/2017 Active duloxetine 60 MG capsule Take 60 mg by mouth daily. 12/17/2015 Active vitamin D2, ergocalciferol, 88505 UNITS capsule Take 50,000 Units by mouth every 7 days. 12/11/2018 Active pantoprazole EC 40 MG tablet Take 40 mg by mouth 2 (two) times daily. 12/17/2015 Active thyroid (ARMOUR) 180 MG OR TABS Take 180 mg by mouth daily. 12/17/2015 Active Zinc 30 MG Cap Take 1 tablet by mouth daily. Active famotidine 20 MG tablet Take 20 mg by mouth daily. 06/20/2021 Active MYRBETRIQ 25 MG 24 hr tablet Take 25 mg by mouth daily. 08/10/2021 Active tiZANidine 4 MG tablet Take 4 mg by mouth every 6 (six) hours as needed. 08/11/2021 Active lysine 500 MG tablet Take 500 mg by mouth daily. Active Magnesium 300 MG Cap Take 300 mg by mouth daily. Active COD LIVER OIL OR Take 2,685 mg by mouth daily. Active POLYETHYLENE GLYCOL 3350 OR Take by mouth as needed. Active OZEMPIC, 1 MG/DOSE, 4 MG/3ML Solution Pen-injector Inject 1 mg into the skin every 7 days. 09/07/2021 Active STELARA 90 MG/ML injection Inject 90 mg into the skin Once every eight weeks. 04/05/2022 Active Active Problems Problem Noted Date Diagnosed Date Crohn disease (CMS/HCC HHS/HCC) 03/02/2024 Elevated blood pressure reading 08/26/2021 Dyslipidemia 08/26/2021 Abnormal ECG 08/26/2021 QUINTERO (nonalcoholic steatohepatitis) 03/01/2014 Overview (10/14/2021): Overview: 11/16/11 liver biopsy: QUINTERO, dense zone [...] 01/07/20 Fibroscan CAP 290, LSM 8.1 kPa mcm 10/13/20 Fibroscan CAP 277, LSM 5.4 kPa dwp 10/05/21 Fibroscan CAP 256, LSM 9.1 kPa dwp Encounters Date Type Department Care Team Description 10/31/2024 Telephone [place] [facility], [address] [address] Jonnie Diallo MD Appointment Request from Last 3 Months Immunizations Immunization Administration Dates Next Due Influenza Adult (Generic) 03/30/2018 Pneumococcal (Pneumovax 23) 10/05/2021 Pneumococcal (Prevnar 13) 06/24/2021 Tdap (Generic) 12/26/2017,07/05/2003 Tetanus Toxoid Inj 06/20/2017 Family History Medical History Relation Comments Heart Attack Maternal Grandfather Open Heart Maternal Grandfather Stroke Maternal Grandmother Relation Status Comments Brother Alive Father Alive Maternal Grandfather Maternal Grandmother Mother Alive Social History Tobacco Use Types [...] Orientation Straight 10/12/2021 6: 17 AM CDT Last Filed Vital Signs Vital Sign Reading Time Taken Comments Blood Pressure 135/78 04/19/2024 10:13 AM CDT Pulse 73 04/19/2024 10:13 AM CDT Temperature 36.4 C (97.6 F) 04/19/2024 10:13 AM CDT Respiratory Rate 16 03/21/2024 2:21 PM CDT Oxygen Saturation 98% 04/19/2024 10:13 AM CDT Inhaled Oxygen Concentration - - Weight 83.9 kg (185 lb) 05/21/2024 10:54 AM CONDITIONER TUMBLER OPERATOR Height 165.1 cm (5' 5) 05/21/2024 10:54 AM CONDITIONER TUMBLER OPERATOR Body Mass Index 30.79 05/21/2024 10:54 AM CONDITIONER TUMBLER OPERATOR Plan of Treatment Upcoming Encounters Date Type Department Care Team (Late st Contact Info) Description 03/18/2025 12:45 PM CDT Office Visit [facility] [place] [address] Jonnie Diallo MD Three [facility] [address] [place] [address] Health Maintenance Due Date Last Done Comments Colorectal Cancer Screening Colonoscopy (10 Years) 1971 Annual Physical 1974 Hepatitis B Vaccines (1 of 3 - 19+ 3-dose series) 1990 Mammogram Screening 2011 Zoster Vaccines (1 of 2) 2021 COVID-19 Vaccine (1 - 2023-2 5 season) 2024 PHQ-2 (Physician [place]) 06/20/2024 Pneumococcal Vaccine: 50+ Years (3 of 3 - PCV20 or PCV21) 10/05/2026 10/05/2021, 06/24/2021 DTaP, Tdap and Td Vaccines ( 4 - Td or Tdap) 12/27/2027 12/26/2017, 06/20/2017, 07/05/2003 Hepatitis C Completed 06/08/2021, 06/08/2021, 06/08/2021 Meningococcal B Vaccine Aged Out No l onger eligible based on patient's age to complete this topic Meningococcal Vaccine Aged Out No giulia ernesto eligible based on patient's age to complete this topic RSV Immunizations Under 20 Months Aged Out No longer eligible b ased on patient's age to complete this topic Insurance [facility] Care Teams Head Of Loss Prevention Relationship Specialty Start Date End Date Deloris Kimbrough, TELEVISION ANTENNA INSTALLER-BC [address] [place] [address] PCP - General NURSE PRACTITIONER 02/22/19
--- OUTSIDE RECORDS SUMMARY | 2025-01-04 13:19 | XMS_ITS | Referral Summary ---
Author Organization [facility] Address [address] [place] [address] Care Team Providers Care Leadership Program Associate Name Role Phone Kaylan Deloris Sarai DOCTOR OF MEDICINE Primary Care Provider + Allergies Active Allergy Reactions Criticality Noted Date Comments Moxifloxacin Rash Medium 04/26/2018 Ciprofloxacin Other (See comments) Low 09/07/2012 Will not take due to side effects--mother allergic Other reaction(s): Other Will not take due to side effects--mother allergic, Will not take due to side effects--mother allergic Delafloxacin Rash Medium 04/26/2018 Gemifloxacin Rash Medium 04/26/2018 Ofloxacin Rash Medium 04/26/2018 Gatifloxacin Levofloxacin Rash Medium 12/07/2011 Lorazepam Anaphylaxis High 12/26/2018 Norfloxacin Rash Medium 04/26/2018 Quinolones Rash Medium 12/07/2011 Medications solifenacin (VESICARE) 5 mg tablet take 1 tablet by oral route every day 0 0 6 Active Additional Information Patient not taking.Reported on 07/30/2021 thyroid (ARMOUR THYROID) 180 mg tablet 1 tablet daily 0 0 6 Active Additional Information Patient taking differently:180 mgoral Every morning, Indications: hypothyroidism, Reported on 07/30/[address] (PROTONIX) 40 mg EC tablet take 1 tablet by oral route every day 0 0 6 Active Additional Information Patient taking differently:40 mgoral Every morning, Indications: Stress Ulcer Prophylaxis, Reported on 07/30/[address] (CYMBALTA) 60 mg capsule take 1 (60MG) by oral route every day 0 0 6 Active Additional Information Patient taking differently:60 mgoral Every morning, Reported on 07/30/2021 colesevelam (WELCHOL) 625 mg tabletIndicatio ns:Type 2 Diabetes Mellitus Treatment Adjunct Take 1,875 mg by mouth every morning. 8 Active zinc 50 mg tablet Take 1 tablet by mouth every morning. Active clobetasol (TEMOVATE) 0.05 % ointment 8 Active LANTUS SOLOSTAR U-100 INSULIN 100 unit/mL (3 mL) insulin pen 8 Active HUMALOG KWIKPEN INSULIN 100 unit/mL insulin pen 8 Active ENSTILAR 0.005-0.064 % foam 9 Active VITAMIN D2 50,000 unit capsule 9 Active ARIPiprazole (ABILIFY) 5 mg tablet aripiprazole 5 mg tablet TAKE 1 TABLET DAILY Active canagliflozin (INVOKANA) 100 mg tablet Invokana 100 mg tablet Active lancets 33 gauge misc 8 Active omega-3 fatty acids (LOVAZA) 1 gram capsule Take 1,000 mg by mouth Active pen needle, diabetic 31 gauge x 5/16 needle 8 Active Osphena 60 mg tablet 0 Active cod liver oil oil cod liver oil 0 Active inFLIXimab (REMICADE) 100 mg injection Infuse into a venous catheter Active magnesium oxide (MAG-OX) 400 mg (241.3 mg elemental magnesium) tablet Take by mouth daily Active medical cannabis each marijuana Active milk thistle 150 mg capsule milk thistle 0 Active blood glucose diagnostic (OneTouch Verio test strips) strip OneTouch Verio test strips USE 1 STRIP EVERY DAY Active zinc-vit C-pyridoxine, vit B6, 12-60-0.5 mg lozenge zinc 30 mg once daily Active famotidine (PEPCID) 20 mg tablet 2 Active Myrbetriq 25 mg tablet extended release 24 hr 1 Active buPROPion XL (WELLBUTRIN XL) 300 mg 24 hr tablet 2 Active Wegovy 2.4 mg/0.75 mL auto-injector INJECT 2.4 MG EVERY WEEK BY SUBCUTANEOUS ROUTE BEGINNING AFTER YOUR 1.7 MG DOSE 2 Active Active Problems Patient Care Coordination No te Formatting of this note migh t be different from the original. Referring provider: Dr. Mcgraw Rachana Sethi is a 51-year-old with a sternal fracture. Patient reports issues with constipation. She states on Tuesday morning she was trying to have a bowel movement and was straining hard. She fell the manubrium pop out away from her body. She also states that her shoulders dropped and she had to manually push them back in to place. She states she is sore, bruised and is hard to move for torso. She called her primary care provider. On 07/14/2021 the patient underwent a x-ray of the sternum which showed a smooth indentation of the anterior cortex of the proximal body of the sternum, not readily evident on the prior lateral chest radiographs. This may be due to an interval fracture. On 07/25/2021 the patient underwent a Chest CT which showed a mild depression of the anterior cortex of the sternum with mild associated sclerosis suggestive of prior healed buckle fracture. No associated soft tissue swelling to suggest acute component. No displaced fracture is seen. Patient presents today for further surgical evaluation. Problem Noted Date Diagnosed Date Bulging lumbar disc 12/26/2018 Unilateral deafness 12/26/2018 Abnormal liver enzymes 12/26/2018 Cirrhosis of liver 12/26/2018 Constipation 12/26/2018 Fatigue 12/26/2018 Hyperlipidemia 12/26/2018 Migraine 12/26/2018 Mixed stress and urge urinary incontinence 12/26 Overactive bladder 12/26/2018 Pharyngitis 12/26/2018 Vitamin D deficiency 12/26/2018 Status post cervical spinal fusion 11/29/2018 Nonalcoholic fatty liver disease 11/29/2018 Cervical radiculopathy 04/10/2018 Overview (04/10/2018): Added automatically from request for surgery [id number] Helicobacter pylori ab+ 12/09/2017 Overview (12/26/2018): Overview: 47 y/o with chronic RUQ pain s/p cholecystectomy. IgG is 1.13 (positive). Will treat with 14 days of biaxin, flagyl, and protonix. Hx of duodenal ulcer 11/25/2017 Overview (12/26/2018): Overview: 47 y/o female who presents having been [...] protonix, and serology has not been checked. Pleuritic chest pain 11/25/2017 Overview (12/26/2018): Overview: 47 y/o female who presents having been [...] The attending radiologists have now reviewed the 2016 and 2017 CTs and concur that a repeat chest CT is indicated. [place], has two dogs and cats, and the most recent episode may be related to her having fallen asleep on the couch (the cats sometimes lay on the couch). The patient has psoriasis on both upper extremeties. Hemorrhoids 10/31/2017 Overview (12/26/2018): Overview: Frequent bleeding. Depression 10/30/2017 Shoulder joint pain 04/19/2017 Sprain of right ankle 02/04/2017 Tachycardia 11/29/2016 Locking finger joint 11/25/2016 Iron deficiency 11/22/2016 Overview (12/26/2018): Overview: Attributed to chronic hemorrhoidal bleeding. 12/07/11 duodenal biopsy: inflammation in lamina propria but no increased IELs or changes in villous architecture 12/07/11 colonoscopy: poor prep, no polyps 03/16/12 trf sat 8% 09/07/12 trf sat 22% 07/13/16 EGD: retained gastric contents, SB biopsies: normal villi, no inflammation Obstructive sleep apnea 11/22/2016 Overview (12/26/2018): Overview: Diagnosed 2014, not using CPAP. Uses oral device. Elevated blood-pressure read ing without diagnosis of hypertension 08/15/2016 Low back pain 08/13/2016 Overview (12/26/2018): Overview: Pain on palpation on right costochondral margin consistent with costochondritis. Fibromyalgia 05/10/2016 Psoriasis 05/10/2016 Overview (12/26/2018): Overview: Has not received methotrexate. Increased soft tissue pain with Otezla. Psoriatic arthritis 05/10/2016 Overview (12/26/2018): Overview: Overview: Dx 2016. Mostly hands, ankles, knees. Hypothyroidism 03/01/2014 QUINTERO (nonalcoholic steatohepatitis) 03/01/2014 Overview (12/26/2018): Overview: Overview: 11/16/11 liver biopsy: QUINTERO, dense zone 3 PSF and periportal fibrosis, stage 2 07/13/16 liver biopsy: QUINTERO, stage 2 dwp (extraordinary pain after EGD/bx with sedation, required overnight observation, no bleed on CT, readmitted overnight a few days later with dyspnea, Hgb unchanged, CT okay) 12/05/17 Fibroscan CAP 277, E 9.8 kPa Obesity 03/01/2014 Type 2 diabetes mellitus 03/01/2014 GERD (gastroesophageal reflux disease) 2 Immunizations Immunization Administration Dates Next Due Influenza, Quadrivalent, Spl it, Preservative Free, Intramuscular 03/30/2018 Tdap 12/26/2017,07/05/2003 Social History Tobacco Use Types Packs/Day Years Used Date Smoking Tobacco: Former Cigarettes 1 16 1 986 - 2001 Smokeless Tobacco: Never Alcohol Use Standard Drinks/Week Comments No 0 (1 standard drink = 0.6 oz pur e alcohol) Comments No Sex and Gender Information Value Date Recorded Sex Assigned at Not on file Legal Sex Female 2:10 AM 911 EMERGENCY DISPATCHER Gender Identity Not on file Sexual Orientation Not on file 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 Not on file Not on file Not o n file unempluyed Not on file Not on file Not on file Last Filed Vital Signs Vital Sign Reading Time Taken Comments Blood Pressure 174/94 07/31/2021 7:20 PM 911 EMERGENCY DISPATCHER Pulse 88 07/31/2021 7:20 PM 911 EMERGENCY DISPATCHER Temperature 36.9 C (98.4 F) 07/31/2021 7:20 PM 911 EMERGENCY DISPATCHER Respiratory Rate 16 07/31/2021 7:20 PM 911 EMERGENCY DISPATCHER Oxygen Saturation 99% 07/31/2021 7:20 PM 911 EMERGENCY DISPATCHER Inhaled Oxygen Concentration - - Weight 77.1 kg (170 lb) 07/31/2021 7:20 PM 911 EMERGENCY DISPATCHER Height 162.6 cm (5' 4) 07/31/2021 7:20 PM 911 EMERGENCY DISPATCHER Body Mass Index 29.18 07/31/2021 7:20 PM 911 EMERGENCY DISPATCHER Plan of Treatment Not on file Medical Devices Implanted Type Area Fern Gatherer Device Identifier Shelf Expiration Date Model / Serial / Lot Orthocon Inc Os-201 Hemasorb Spatula Wax 2gm Bone Sterile - [id number] Implanted:Qty: 1 on 05/01/2018 by Mateus Dsouza MD at [facility] N/A: Spine Cervical [employer] Inc 09/17/2020 OS-201 / / [employer] 700-025 I Factor Allograft Putty Syringe Graft 2.5cc Bone - [id number] Implanted:Qty: 1 on 05/01/2018 by Mateus Dsouza MD at [facility] N/A: Spine Cervical [employer] [id number] 02/17/2021 700-025 / / [id number] [employer] [id number] Radiant-S [id number] Radiopaque 7d Lordotic Spacer Spinal - [id number] Implanted:Qty: 1 on 05/01/2018 by Mateus Dsouza MD at [facility] N/A: Spine Cervical [employer] 11/17/2022 61 / / [employer] Radiant-S [id number] Radiopaque 7d Lordotic Spacer Spinal - [id number] Implanted:Qty: 1 on 05/01/2018 by Mateus Dsouza MD at [facility] N/A: Spine Cervical [employer] [id number] 10/17/2022 61 / / [id number] [employer] Radiant-S [id number] Radiopaque 7d Lordotic Spacer Spinal - [id number] Implanted:Qty: 1 on 05/01/2018 by Mateus Dsouza MD at [facility] N/A: Spine Cervical [employer] [id number] 04/19/2023 71 / / [id number] [facility] [id number] Mambo Settle Spinal Cervical Screw Bone Silver - [id number] Implanted:Qty: 3 on 05/01/2018 by Mateus Dsouza MD at [facility] [id number] / / [facility] [id number] Mambo 3.5mm 13mm Spine Cervical Screw Bone Silver Modular Plate - [id number] Implanted:Qty: 8 on 05/01/2018 by Mateus Dsouza MD at [facility] N/A: Spine Cervical [facility] [id number] / / [facility] [id number] Mambo 37mm 6 Hole Modular [place] 1 Step Lock Mechanism Spine - [id number] Implanted:Qty: 1 on 05/01/2018 by Mateus Dsouza MD at [facility] N/A: Spine Cervical [facility] [id number] / / [facility] [id number] Mambo Extension Modular [place] 1 Step Lock Mechanism Spine - [id number] Implanted:Qty: 1 on 05/01/2018 by Mateus Dsouza MD at [facility] N/A: Spine [facility] [id number] / / Insurance [employer] [place] Advance Directives For more information, please contact: [phone] * Full Code (Latest Code Status on File) Date Activated Date Inactivated Comments 05/01/2018 7:33 PM 05/02/2018 2:04 PM Care Teams Leadership Program Associate Relationship Specialty Start Date End Date Deloris Kimbrough NP PCP - General Nurse Practitioner 02/28/18
--- OUTSIDE RECORDS SUMMARY | 2025-01-04 13:19 | XMS_ITS | Clinical Summary ---
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 Primary Care Provider + Allergies Active Allergy [...] (04/10/2018): Added automatically from request for surgery [id number] Helicobacter pylori ab+ 12/09/2017 Overview (12/26/2018): Overview: [...] it, Preservative Free, Intramuscular 03/30/2018 Tdap 12/26/2017,07/05/2003 Surgical History Surgery Date Site/Laterality Comments TOTAL ABDOMINAL HYSTERECTOMY Hysterectomy, total TONSILLECTOMY 06/20/1979 - 06/19/1980 CHOLECYSTECTOMY BLADDER SUSPENSION 06/20/2000 - 06/19/2001 OVARIAN CYST REMOVAL 06/20/2001 - 06/19/2002 Bilateral TUBAL LIGATION 06/20/2001 - 06/19/2002 CARPAL TUNNEL RELEASE 06/20/2002 - 06/19/2003 Right TRIGGER FINGER RELEASE 06/20/2016 - 06/19/2017 Right EXCISION / CURETTAGE BONE CYST PHALANGES OF FOOT 06/20/2017 - 06/19/2018 Left CYST REMOVAL 06/20/1979 - 06/19/1980 Right THIGH CYST REMOVAL CYSTECTOMY 06/20/2017 - 06/19/2018 FOOT SURGERY 06/20/2017 - 06/19/2018 Left 2nd toe bone removed Medical History Medical History Date Comments Diabetes mellitus (HCC) Diabetes mellitus; Comments: ARACELY 12/17/2015 - Disorder of thyroid Thyroid dise ase Gastroesophageal reflux disease GERD Hx Other Medical cirrhosis; Comm ents: ARACELY 12/17/2015 - Hx Other Medical peptic ulcer di sease Anxiety Asthma Cervical disc disease Cervical stenosis (uterine cervix) Ear problems Depression Type 2 diabetes mellitus (HCC) Gastric reflux Hypothyroidism Liver disease Disc disorder of lumbar region Lumbar stenosis Peptic ulceration 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 Does not receive serial ECHO's. Sleep apnea Anemia Fibromyalgia Psoriatic arthritis (HCC) Duodenal ulcer Urinary incontinence Hyperlipidemia Delayed emergence from general anesthesia Pleurisy Last episode ~ 3 weeks ago (03/2018), right rib cage H pylori ulcer Family History Medical History Relation Name Comments Hypertension Father Stroke Father Heart attack Maternal Grandfather Hypertension Maternal Grandmother Stroke Maternal Grandmother MULTIPLE CHEMICAL SENSITIVITIES Mother Stroke Paternal Grandfather Stroke Son Anesthesia problems Neg Hx Relation Name Status Comments Father Maternal Grandfather Maternal Grandmother Mother Paternal Grandfather Son Social History Tobacco Use Types Packs/Day Years Used Date Smoking Tobacco: Former Cigarettes 1 16 1 986 - 2001 Smokeless Tobacco: Never Alcohol Use Standard Drinks/Week Comments No 0 (1 standard drink = 0.6 oz pur e alcohol) Comments No Sex and Gender Information Value Date Recorded Sex Assigned at Not on file Legal Sex 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 Gender Identity Not on file Sexual Orientation Not on file 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 [employer] Not on file Not on file Not o n file unempluyed Not on file Not on file Not on file Obstetrics History Last Filed Vital Signs Vital Sign Reading Time Taken Comments Blood Pressure 174/94 07/31/2021 7:20 PM ROCK DRILL OPERATOR Pulse 88 07/31/2021 7:20 PM ROCK DRILL OPERATOR Temperature 36.9 C (98.4 F) 07/31/2021 7:20 PM ROCK DRILL OPERATOR Respiratory Rate 16 07/31/2021 7:20 PM ROCK DRILL OPERATOR Oxygen Saturation 99% 07/31/2021 7:20 PM ROCK DRILL OPERATOR Inhaled Oxygen Concentration - - Weight 77.1 kg (170 lb) 07/31/2021 7:20 PM ROCK DRILL OPERATOR Height 162.6 cm (5' 4) 07/31/2021 7:20 PM ROCK DRILL OPERATOR Body Mass Index 29.18 07/31/2021 7:20 PM ROCK DRILL OPERATOR Plan of Treatment Not on file Medical Devices Implanted Type Area Hand Ii Tube Bender Device Identifier Shelf Expiration Date Model / Serial / Lot Orth[employer] Inc Os-201 Hemasorb Spatula Wax 2gm Bone Sterile - [id number] Implanted:Qty: 1 on 05/01/2018 by Mateus Dsouza MD at [facility] N/A: Spine Cervical [employer] 09/17/2020 OS-201 / / [employer] 700-025 I Factor Allograft Putty Syringe Graft 2.5cc Bone - [id number] Implanted:Qty: 1 on 05/01/2018 by Mateus Dsouza MD at [facility] N/A: Spine Cervical [employer] [id number] 02/17/2021 700-025 / / [id number] [employer] [place] [id number] Radiopaque 7d Lordotic Spacer Spinal - [id number] Implanted:Qty: 1 on 05/01/2018 by Mateus Dsouza MD at [facility] N/A: Spine Cervical [employer] 11/17/2022 61 / / [employer] [place] [id number] Radiopaque 7d Lordotic Spacer Spinal - [id number] Implanted:Qty: 1 on 05/01/2018 by Mateus Dsouza MD at [facility] N/A: Spine Cervical [employer] [id number] 10/17/2022 61 / / [id number] [employer] [id number] [place] [id number] Radiopaque 7d Lordotic Spacer Spinal - [id number] Implanted:Qty: 1 on 05/01/2018 by Mateus Dsouza MD at [facility] N/A: Spine Cervical [employer] [id number] 04/19/2023 71 / / [id number] [facility] [id number] Mambo Settle Spinal Cervical Screw Bone Silver - [id number] Implanted:Qty: 3 on 05/01/2018 by Mateus Dsouza MD at [facility] [id number] / / [facility] [id number] Mambo 3.5mm 13mm Spine Cervical Screw Bone Silver Modular Plate - [id number] Implanted:Qty: 8 on 05/01/2018 by Mateus Dsouza MD at [facility] N/A: Spine Cervical [facility] [id number] / / [facility] [id number] Mambo 37mm 6 Hole Modular [place] 1 Step Lock Mechanism Spine - [id number] Implanted:Qty: 1 on 05/01/2018 by Mateus Dsouza MD at [facility] N/A: Spine Cervical [facility] [id number] / / [facility] [id number] Mambo Extension Modular [place] 1 Step Lock Mechanism Spine - [id number] Implanted:Qty: 1 on 05/01/2018 by Mateus Dsouza MD at [facility] N/A: Spine Cervical [facility] [id number] / / [place] [employer] [place] [employer] [place] Advance Directives For more information, please contact: [phone] * Full Code (Latest Code Status on File) Date Activated Date Inactivated Comments 05/01/2018 7:33 PM 05/02/2018 2:04 PM Care Teams Contour Sander Relationship Specialty Start Date End Date Deloris Kimbrough NP PCP - General Nurse Practitioner 02/28/18
== END 2025-01-04 13:12 | disposition home or self-care (01) ==
PROVIDERS: PCP Nurse Practitioner Adult Health; Visit Provider Nurse Practitioner Adult Health
DX: M77.32 Calcaneal spur, left foot (principal); M25.572 Pain in left ankle and joints of left foot; M25.472 Effusion, left ankle
CPT/HCPCS: 73610; 73630